=== PATIENT | male | born 1960 | race Caucasian/White ===

== ENCOUNTER 2023-01-28 13:20 | Inpatient (IN) | payer SELFPAY ==
[2023-01-28] VITALS (7 sets, daily range): BP systolic 100–132; BP diastolic 52–76; PULSE 62–70; RESP 15–20; TEMP 36.4–36.7; O2SAT 96–100
--- NOTE | 2023-01-28 13:55 | PC.NURSE ---
pt currently 97% on room air.
--- NOTE | 2023-01-28 13:57 | XR_ITS ---
WS: [id number] Portable AP upright chest, 01/28/2023 Clinical Data: fluid overload Comparison: Portable chest, 04/06/2014. Findings: No nodules, masses or effusions are seen. The heart is normal. The pulmonary vascularity is not increased. No pneumonia or pneumothorax is seen. Impression: Negative chest.
--- NOTE | 2023-01-28 13:59 | ECG_ITS ---
[facility] Test Date: 2023-01-28 Pat Name: Jordi Pérez Department: Room: Gender: Male Licensed Occupational Therapy Assistant: : 1960 Requested By: Julianna Dunn Order Number: [id number] Jairo MD: Garrett Prater M.D. Measurements Intervals [place] Rate: 65 P: 43 CT: 178 QRS: 18 QRSD: 105 T: -17 QT: 399 QTc: 418 Interpretive Statements SINUS RHYTHM LOW QRS VOLTAGE IN PRECORDIAL LEADS [QRS DEFLECTION < 1.0 mV IN CHEST LEADS] PROBABLE INFERIOR MYOCARDIAL INFARCTION , OF INDETERMINATE AGE [35 ms Q WAVE IN II/aVF] Compared to ECG 04/07/2014 06:38:26 Low QRS voltage now present Myocardial infarct finding still present Electronically Signed On 01-28-2023 19:36:55 CDT by Garrett Prater M.D. [id number]
--- NOTE | 2023-01-28 13:59 | W.ED.GENADLT ---
Documented by User: LUKE Vizcarra 01/28/23 16:48 HPI - General Adult General: Chief complaint: Extremity Problem,Nontraumatic Stated complaint: body swelling, URQ abd pain Time Seen by Provider: 01/28/23 13:34 Source: patient Mode of arrival: ambulatory Limitations: no limitations History of Present Illness: Patient is a 62-year-old male who presents to ED today along with family for concerns of swelling to his lower extremities and abdomen. Patient states he has had swelling to his legs for about a decade now but it has always been fairly controlled. He states he takes Lasix for this. Patient states over the past 4 to 5 months he has noticed significantly more swelling to his legs, swelling to his abdomen, shortness of breath, and weight gain. He states he has been told by his PCP that his liver and kidney labs are off . He has seen cardiology previously who was recommended echocardiogram however I do not see where this is ever been completed. Patient states he can hardly eat and gets profoundly short of breath with minimal exertion. PMH significant for CAD with RCA stent, HTN, and hyperlipidemia. Onset (ago): month(s) Location: abdomen, left, right and lower extremity Severity: severe Relieving factors: none Exacerbating factors: none Associated symptoms: Reports dyspnea and short of breath; Deny chest pain, headache(s), malaise, nausea, rash, palpitations, syncope or vomiting Treatments prior to arrival: none Review of Systems Const: Denies: fever(s), chills, body aches, fatigue or malaise Eyes: Denies: change in vision or blurry vision Card: Reports: edema, swelling of feet/ankles, dyspnea on exertion and orthopnea; Denies: chest pain, palpitations, irregular heart rhythm, lightheadedness or syncope Resp: Reports: dyspnea; Denies: productive cough, wheezing, pain on inspiration, hemoptysis or chest congestion GI: Denies: abdominal pain, nausea, vomiting, heartburn or diarrhea : Denies: flank pain, difficulty urinating, dysuria, urinary frequency, urinary urgency or urinary hesitancy Musc: Reports: extremity pain and extremity swelling; Denies: neck pain, back pain, joint pain, joint redness or joint warmth Skin/Breast: Denies: rash Neuro: Denies: headache(s), numbness in extremities, weakness in extremities, sensory changes or dizziness PFSH ED PFSH: Medical History Coronary artery disease HTN (hypertension) Hyperlipidemia, unspecified Family History Brother CAD (coronary artery disease) Hypertension Father Family history of premature coronary artery disease Hypertension Stroke Social History Smoking and tobacco/nicotine status: current every day tobacco/nicotine user Quit status (tobacco/nicotine): has tried quititng Physical Exam Const: COMMON NORMALS: no acute distress, patient oriented x3, no limitations and alert GENERAL APPEARANCE: cooperative ORIENTATION/CONSCIOUSNESS: Yes awake, Yes oriented to person, Yes oriented to place and Yes oriented to time HENMT: FACE & SINUS: normal facial exam Eye: GENERAL EYE: appearance normal, both eyes and all related structures Neck/C-Spine: GENERAL: Yes normal visual inspection Chest: COMMONS NORMALS: normal inspection of the chest and normal palpation of entire chest wall Resp: COMMON NORMALS: normal respiratory effort and clear to auscultation bilaterally AUSCULTATION: clear to auscultation bilaterally Cardio: COMMON NORMALS: regular rate and regular rhythm RATE: regular rate RHYTHM: regular rhythm GI: INSPECTION: Yes Anasarca and No Fluid wave present PALPATION: No Tenderness to palpation present (GI), No Guarding due to palpation present (GI) and No Rigid due to palpation PERCUSSION: no fluid wave : COMMON NORMALS: Yes no CVA tenderness BLADDER/KIDNEY EXAM: Yes no CVA tenderness Back/Pelvis: COMMON NORMALS: no CVA tenderness, thoracic and lumbar spine normal to inspection, no thoracic nor lumbar tenderness and thoraco-lumbar ROM normal Extremity: COMMON NORMALS: capillary refill normal NARRATIVE EXTREMITY EXAM: significant bilateral symmetrical pitting edema present Neuro: BETH COMA SCALE: document GCS findings [place] coma scale eye opening: Spontaneous Beth coma scale verbal response: Orientated [place] coma scale motor response: Obey commands Beth coma scale total score: 15 COMMON NORMALS: patient oriented x3, moves all extremities, no focal motor deficits and no sensory deficits noted SENSORIUM/ORIENTATION: Yes alert, Yes oriented to person, Yes oriented to place and Yes oriented to time Course Consultations: Consultation #1: Dr. Lay-accepts admission to med surg Vital Signs: Vital signs: Vital Signs Temperature 98.1 F 01/28/23 13:31 Pulse Rate 68 01/28/23 16:30 Respiratory Rate 16 01/28/23 16:30 Blood Pressure 132/76 01/28/23 16:30 Pulse Oximetry 98 01/28/23 16:30 Oxygen Delivery Me thod Room Air 01/28/23 16:30 MDM - General Adult Medical Decision Making Patient here for significant anasarca. He is on diuretics but this does not seem to be making much of a difference. He is reporting dyspnea with minimal exertion and trouble eating secondary to the swelling. Labs showing elevations to BUN/Cr. GFR of 34. He has been told his kidney labs are off but we have no comparisons here. He has a tbili of 2.6 and AST of 52. Alk phos and ALT are normal. Albumin is low. Elevated INR. CT scan confirms liver cirrhosis. BNP Surprisingly is only 236. His CXR appears normal. He needs an echo and diuresis. Spoke to Dr. Veras who agrees with need for hospitalization. I spoke to Dr. Lay who will admit patient. Lab Data 01/28/23 14:00 01/28/23 14:00 Laboratory Results WBC 9.64 10^3/uL (3.29-11.43) 01/28/23 14:00 RBC 3.38 10^6/uL (3.85-5.65) L 01/28/23 14:00 Hgb 12.40 g/dL (11.27-16.99) 01/28/23 14:00 Hct 35.8 % (37-53) L 01/28/23 14:00 MCV 105.9 fl (82-101) H 01/28/23 14:00 MCH 36.7 pg (27-33) H 01/28/23 14:00 MCHC 34.6 g/dL (30-55) 01/28/23 14:00 RDW 13.3 % (12.1-15.1) 01/28/23 14:00 Plt Count 169 10^3/cmm (157-399) 01/28/23 14:00 MPV 9.6 fL (7.4-10.4) 01/28/23 14:00 Neut % (Auto) 62.4 % 01/28/23 14:00 Lymph % (Auto) 23.3 % 01/28/23 14:00 [place] % (Auto) 10.9 % 01/28/23 14:00 Eos % (Auto) 2.4 % 01/28/23 14:00 Baso % (Auto) 0.7 % 01/28/23 14:00 Neut # (Auto) 6.01 10^3/uL (1.8-7.7) 01/28/23 14:00 Lymph # (Auto) 2.3 10^3/uL (0.8-4.8) 01/28/23 14:00 [place] # (Auto) 1.1 10^3/uL (0.2-0.9) H 01/28/23 14:00 Eos # (Auto) 0.2 10^3/uL (0.0-0.8) 01/28/23 14:00 Baso # (Auto) 0.1 10^3/uL (0.0-0.1) 01/28/23 14:00 Nucleated RBC % (auto) 0 % 01/28/23 14:00 Nucleated RBCs # 0.0 /100WBC 01/28/23 14:00 PT 18.60 SECONDS (12.1-14.9) H 01/28/23 14:00 INR 1.49 (0.8-1.2) H 01/28/23 14:00 Sodium 132 mmol/L (136-145) L 01/28/23 14:00 Potassium 4.9 mmol/L (3.5-5.1) 01/28/23 14:00 Chloride 95 mmol/L (98-107) L 01/28/23 14:00 Carbon Dioxide 28 mmol/L (22-29) 01/28/23 14:00 Anion Gap 13.9 (5-19) 01/28/23 14:00 BUN 31 mg/dL (8-23) H 01/28/23 14:00 Creatinine 2.0 mg/dL (0.7-1.2) H 01/28/23 14:00 GFR Calculation 34.3 mL/min (90-130) L 01/28/23 14:00 Glucose 135 mg/dL (65-115) H 01/28/23 14:00 Calculated Osmolality 283 mOsm/kg (285-295) L 01/28/23 14:00 Calcium 8.9 mg/dL (8.5-10.5) 01/28/23 14:00 Total Bilirubin 2.6 mg/dL (0.15-1.2) H 01/28/23 14:00 AST 52 U/L (0-40) H 01/28/23 14:00 ALT 28 U/L (0-41) 01/28/23 14:00 Alkaline Phosphatase 108 U/L (40-130) 01/28/23 14:00 Troponin T Baseline 29 ng/L (0-15) H 01/28/23 14:00 Troponin T 120 Minute 27.58 ng/L (0-15) H 01/28/23 15:55 Delta Troponin T -1.42 ABS# (0-10) L 01/28/23 15:55 NT-Pro-B Natriuret Pep 236 pg/mL (0-125) H 01/28/23 14:00 Total Protein 6.3 g/dL (6.6-8.7) L 01/28/23 14:00 Albumin 2.6 g/dL (3.5-5.2) L 01/28/23 14:00 Globulin 3.7 g/dL (1.3-4.6) 01/28/23 14:00 All radiology interpretation(s) finalized by discharge Discharge Plan Discharge Patient Disposition: Admitted As Inpatient Clinical Impression: Anasarca Cirrhosis of liver Qualifiers: Hepatic cirrhosis type: unspecified hepatic cirrhosis Ascites presence: with ascites Qualified Code(s): K74.60 - Unspecified cirrhosis of liver Condition: Stable Coding Level of Care Code ED Transplant Case Manager for Chg Fwd Documented by User: Ray Veras DO 01/28/23 17:20 HPI - General Adult General: Chief complaint: Extremity Problem,Nontraumatic Stated complaint: body swelling, URQ abd pain Time Seen by Provider: 01/28/23 13:34 PFSH ED PFS: Medical History Coronary artery disease HTN (hypertension) Hyperlipidemia, unspecified Family History Brother CAD (coronary artery disease) Hypertension Father Family history of premature coronary artery disease Hypertension Stroke Social History Smoking and tobacco/nicotine status: current every day tobacco/nicotine user Quit status (tobacco/nicotine): has tried quititng Physical Exam Neuro: BETH COMA SCALE: document GCS findings [place] coma scale total score: 15 Course Vital Signs: Vital signs: Vital Signs Temperature 98.1 F 01/28/23 13:31 Pulse Rate 68 01/28/23 16:30 Respiratory Rate 16 01/28/23 16:30 Blood Pressure 132/76 01/28/23 16:30 Pulse Oximetry 98 01/28/23 16:30 Oxygen Delivery Me thod Room Air 01/28/23 16:30 MDM - General Adult Medical Decision Making Patient here for significant anasarca. He is on diuretics but this does not seem to be making much of a difference. He is reporting dyspnea with minimal exertion and trouble eating secondary to the swelling. Labs showing elevations to BUN/Cr. GFR of 34. He has been told his kidney labs are off but we have no comparisons here. He has a tbili of 2.6 and AST of 52. Alk phos and ALT are normal. Albumin is low. Elevated INR. CT scan confirms liver cirrhosis. BNP Surprisingly is only 236. His CXR appears normal. He needs an echo and diuresis. Spoke to Dr. Veras who agrees with need for hospitalization. I spoke to Dr. Lay who will admit patient. Chart reviewed and patient discussed with midlevel. Agree with assessment and plan. Lab Data 01/28/23 14:00 01/28/23 14:00 Laboratory Results WBC 9.64 10^3/uL (3.29-11.43) 01/28/23 14:00 RBC 3.38 10^6/uL (3.85-5.65) L 01/28/23 14:00 Hgb 12.40 g/dL (11.27-16.99) 01/28/23 14:00 Hct 35.8 % (37-53) L 01/28/23 14:00 MCV 105.9 fl (82-101) H 01/28/23 14:00 MCH 36.7 pg (27-33) H 01/28/23 14:00 MCHC 34.6 g/dL (30-55) 01/28/23 14:00 RDW 13.3 % (12.1-15.1) 01/28/23 14:00 Plt Count 169 10^3/cmm (157-399) 01/28/23 14:00 MPV 9.6 fL (7.4-10.4) 01/28/23 14:00 Neut % (Auto) 62.4 % 01/28/23 14:00 Lymph % (Auto) 23.3 % 01/28/23 14:00 [place] % (Auto) 10.9 % 01/28/23 14:00 Eos % (Auto) 2.4 % 01/28/23 14:00 Baso % (Auto) 0.7 % 01/28/23 14:00 Neut # (Auto) 6.01 10^3/uL (1.8-7.7) 01/28/23 14:00 Lymph # (Auto) 2.3 10^3/uL (0.8-4.8) 01/28/23 14:00 [place] # (Auto) 1.1 10^3/uL (0.2-0.9) H 01/28/23 14:00 Eos # (Auto) 0.2 10^3/uL (0.0-0.8) 01/28/23 14:00 Baso # (Auto) 0.1 10^3/uL (0.0-0.1) 01/28/23 14:00 Nucleated RBC % (auto) 0 % 01/28/23 14:00 Nucleated RBCs # 0.0 /100WBC 01/28/23 14:00 PT 18.60 SECONDS (12.1-14.9) H 01/28/23 14:00 INR 1.49 (0.8-1.2) H 01/28/23 14:00 Sodium 132 mmol/L (136-145) L 01/28/23 14:00 Potassium 4.9 mmol/L (3.5-5.1) 01/28/23 14:00 Chloride 95 mmol/L (98-107) L 01/28/23 14:00 Carbon Dioxide 28 mmol/L (22-29) 01/28/23 14:00 Anion Gap 13.9 (5-19) 01/28/23 14:00 BUN 31 mg/dL (8-23) H 01/28/23 14:00 Creatinine 2.0 mg/dL (0.7-1.2) H 01/28/23 14:00 GFR Calculation 34.3 mL/min (90-130) L 01/28/23 14:00 Glucose 135 mg/dL (65-115) H 01/28/23 14:00 Calculated Osmolality 283 mOsm/kg (285-295) L 01/28/23 14:00 Calcium 8.9 mg/dL (8.5-10.5) 01/28/23 14:00 Total Bilirubin 2.6 mg/dL (0.15-1.2) H 01/28/23 14:00 AST 52 U/L (0-40) H 01/28/23 14:00 ALT 28 U/L (0-41) 01/28/23 14:00 Alkaline Phosphatase 108 U/L (40-130) 01/28/23 14:00 Troponin T Baseline 29 ng/L (0-15) H 01/28/23 14:00 Troponin T 120 Minute 27.58 ng/L (0-15) H 01/28/23 15:55 Delta Troponin T -1.42 ABS# (0-10) L 01/28/23 15:55 NT-Pro-B Natriuret Pep 236 pg/mL (0-125) H 01/28/23 14:00 Total Protein 6.3 g/dL (6.6-8.7) L 01/28/23 14:00 Albumin 2.6 g/dL (3.5-5.2) L 01/28/23 14:00 Globulin 3.7 g/dL (1.3-4.6) 01/28/23 14:00 Discharge Plan Discharge Patient Disposition: Admitted As Inpatient Clinical Impression: Anasarca Cirrhosis of liver Qualifiers: Hepatic cirrhosis type: unspecified hepatic cirrhosis Ascites presence: with ascites Qualified Code(s): K74.60 - Unspecified cirrhosis of liver Condition: Stable Coding Level of Care Code ED Transplant Case Manager for Glory Ogden
[2023-01-28 14:12] LABS: Basophils # 0.1 10^3/uL (0.0-0.1); Basophils % 0.7 %; Eosinophils # 0.2 10^3/uL (0.0-0.8); Eosinophils % 2.4 %; Hematocrit 35.8 % (37-53); Lymphocytes # 2.3 10^3/uL (0.8-4.8); Lymphocytes % 23.3 %; Mean Corpuscular HGB Conc 34.6 g/dL (30-55); Mean Corpuscular Hemoglobin 36.7 pg (27-33); Mean Corpuscular Volume 105.9 fl (82-101); Mean Platelet Volume 9.6 fL (7.4-10.4); Monocytes # 1.1 10^3/uL (0.2-0.9); Monocytes % 10.9 %; Neutrophils # 6.01 10^3/uL (1.8-7.7); Neutrophils % 62.4 %; Nucleated Red Blood Cells % 0 %; Platelet Count 169 10^3/cmm (157-399); Red Blood Count 3.38 10^6/uL (3.85-5.65); Red Cell Distribution Width 13.3 % (12.1-15.1); White Blood Count 9.64 10^3/uL (3.29-11.43)
[2023-01-28 14:35] LABS: Troponin(5th) Baseline 29 ng/L (0-15)
[2023-01-28 14:45] LABS: Alanine Aminotransferase 28 U/L (0-41); Albumin Level 2.6 g/dL (3.5-5.2); Alkaline Phosphatase 108 U/L (40-130); Anion Gap 13.9 (5-19); Aspartate Amino Transferase 52 U/L (0-40); Blood Urea Nitrogen 31 mg/dL (8-23); Calcium 8.9 mg/dL (8.5-10.5); Carbon Dioxide 28 mmol/L (22-29); Chloride 95 mmol/L (98-107); Globulin 3.7 g/dL (1.3-4.6); Glomerular Filtration Rate 34.3 mL/min (90-130); Glucose 135 mg/dL (65-115); NT Pro B Type Natriuretic Pept 236 pg/mL (0-125); Osmolality Calculated 283 mOsm/kg (285-295); Potassium 4.9 mmol/L (3.5-5.1); Sodium 132 mmol/L (136-145); Total Bilirubin 2.6 mg/dL (0.15-1.2); Total Protein 6.3 g/dL (6.6-8.7)
--- NOTE | 2023-01-28 14:57 | CT_ITS ---
WS: [id number] CT ABDOMEN PELVIS TECHNIQUE: Noncontrast CT of the abdomen and pelvis with coronal and sagittal reformatted images. CLINICAL INFORMATION: anasarca COMPARISON: None. DLP: 1233.[address] scans at [facility] use at least one of these dose optimization techniques: automated e xposure control; mA and/or kV adjustment per patient size (includes targeted exams where dose is matc hed to clinical indication); or iterative reconstruction. FINDINGS: Lung bases are well aerated. Diffuse body wall anasarca. Diffuse mesenteric edema. Mild abdominal and pelvic ascites. Cirrhotic configuration to the liver. Cholecystectomy clips. Small esophageal hiatal hernia. Fatty atrophy of the pancreas. Adrenal glands are normal. No hydronephrosis in either kidney. Urine d istended bladder. Small bladder cystocele. No evidence of high-grade small or large bowel obstruction . Normal caliber abdominal aorta. Aortic calcification. IMPRESSION: 1. Diffuse body wall anasarca with extensive mesenteric edema. 2. Cirrhotic liver with mild abdominal and pelvic ascites. 3. Small esophageal hiatal hernia. 4. No hydronephrosis in either kidney. 5. No other acute findings.
[2023-01-28 15:23] LABS: INR 1.49 (0.8-1.2)
--- NOTE | 2023-01-28 15:58 | ECG_ITS ---
[facility] Test Date: 2023-01-28 Pat Name: Jordi Pérez Department: Room: Gender: Male Access Control Specialist: : 1960 Requested By: Julianna Dunn Order Number: [id number] Jairo MD: Garrett Prater M.D. Measurements Intervals [place] Rate: 62 P: 51 IA: 182 QRS: 27 QRSD: 108 T: -7 QT: 418 QTc: 425 Interpretive Statements SINUS RHYTHM LOW QRS VOLTAGE IN PRECORDIAL LEADS [QRS DEFLECTION < 1.0 mV IN CHEST LEADS] POSSIBLE INFERIOR MYOCARDIAL INFARCTION , PROBABLY OLD [30 ms Q WAVE IN II/aVF] Compared to ECG 01/28/2023 13:59:58 No significant changes Electronically Signed On 01-28-2023 19:45:34 CDT by Garrett Prater M.D. [id number]
[2023-01-28] MEDS: FUROsemide 10 mg/mL SDV 10mL 60 MG IVP (16:31)
[2023-01-28 16:40] LABS: Troponin 5 2HR 27.58 ng/L (0-15); Troponin 5 2HR Delta -1.42 ABS# (0-10)
--- NOTE | 2023-01-28 17:36 | USCV_ITS ---
Jordi Pérez Age: 62 Gender: M : 1960 Exam Date: 01/28/2023 19:28 Ordering Phys: Kristal Lay MD Technologist: ABHISHEK Exam Location: [facility] [place] Indication: chronic BLE edema x 10 yrs on prophylactic Lasix, SOB, hx liver failure, renal failure. c/p RCA stent BP: 132 / 76 HR: 63 Rhythm: Sinus Technical Quality: Adequate with [employer] MEASUREMENTS (Male / Female) Normal Values 2D ECHO LV Diastolic Diameter PLAX 5.9 cm 4.2 - 5.9 / 3.9 - 5.3 cm LV Systolic Diameter PLAX 3.5 cm IVS Diastolic Thickness 1.1 cm 0.6 - 1.0 / 0.6 - 0.9 cm IVS Systolic Thickness 2.1 cm LVPW Diastolic Thickness 1.4 cm 0.6 - 1.0 / 0.6 - 0.9 cm LVPW Systolic Thickness 1.6 cm LVOT Diameter 2.5 cm LV Ejection Fraction 2D Teich 70.0 % LV Ejection Fraction MOD 2C 60.1 % LV Ejection Fraction 2C AL 61.1 % LA Diameter 5.2 cm LA Width 4.0 cm LA Height 6.2 cm RA Width 3.3 cm RA Height 4.6 cm Aorta at Sinotubular Diameter 3.5 cm IVC Diameter 1.4 cm M-MODE Aortic Annulus Diameter 3.3 cm LA Ao Ratio MM 1.6 MV E Point Septal Separation 0.7 cm DOPPLER AV Peak Velocity 153.0 cm/s LVOT Peak Velocity 97.0 cm/s AV Area Cont Eq vti 3.2 cm squared AV Area Cont Eq pk 3.2 cm squared MV Peak Velocity 103.0 cm/s MV Area PHT 2.5 cm squared Mitral E to A Ratio 0.9 MV E' Velocity 72.0 cm/s TV Peak E Velocity 39.0 cm/s PV Peak Velocity 144.0 cm/s RV Acceleration Time 0.1 s RV Ejection Time 0.4 s RV AcT/ET 0.3 FINDINGS Left Ventricle Normal left ventricular size and systolic function, EF 67 %. No regional wall motion abnormalities. Right Ventricle Possibly normal LV size ejection fraction Right Atrium Normal right atrial size. Left Atrium Normal left atrial size. Mitral Valve Thickened mitral valve. Aortic Valve No gross abnormalities noted Tricuspid Valve No gross abnormalities no Pulmonic Valve No gross abnormalities noted Pericardium Normal pericardium without effusion. Aorta Normal aortic annulus size. IVC Normal inferior vena cava. CONCLUSIONS Normal left ventricular size and systolic function, EF 67 %. No regional wall motion abnormalities. Thickened mitral valve. Normal cardiac chamber sizes No gross valvular abnormalities. There is no pericardial effusion. Compared to the study from 04/07/2014, there may not be a significant change Dr Garrett Prater MD FACC (Electronically Signed) Final Date: 29 January 2023 08:53 S
--- NOTE | 2023-01-28 18:06 | PM.HP ---
Providers/Chief Complaint Admitting Physician: Kristal Lay MD Primary Care Provider: Fausto Poe MD Chief Complaint: body swelling, URQ abd pain History of Present Illness Jordi Pérez is a 62 year old male with a past medical history of CAD, presumed heart failure who has been having increasing generalized anasarca over the last 3 to 4 months. Patient states that he started to develop lower extremity edema at least 2 to 3 years ago, used to follow with cardiology who put him on diuretics furosemide 40 mg twice daily and metolazone. He has not seen cardiology in about a year now. He has been following with his primary care provider. He states that while the diuretics give him an initial improvement over the first 2 months, thereafter they stopped working and he has had a progressively increasing edema more intensified over the last 3 to 4 months. He is unable to walk, states that his appetite is essentially gone as a result of his edema. Denies any chest pain. On examination he has massive bilateral 3+ pitting edema. Denies any recent changes in his medications. CT of the abdomen pelvis was performed today which was negative for acute intracranial pathology but did show liver cirrhosis. Unclear how long patient has had liver cirrhosis. Denies any past history of hepatitis. States that years ago he was told by a physician that he has fatty liver but does not recall being given the diagnosis of cirrhosis. There is a low ultrasound of the liver from 2012 which shows echogenicity of the liver was diffusely increased compatible with fatty infiltration. Gallbladder was surgically absent. Both kidneys appeared to be normal echotexture. He does not drink any alcohol. No history of IV drug use. He is a current smoker. 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 His job required him to be standing throughout the day. He had a venous study years ago in October 2011 with the indication is listed as swelling which was negative for any DVT. He had a Carvajal's cyst in the left popliteal fossa. Review of Systems General: Reports: 10 or more systems reviewed and unremarkable except in HPI and below Const: Denies: fever(s), chills or body aches Eyes: Denies: change in vision, blurry vision or photophobia ENMT: Reports: hoarseness; Denies: throat pain, enlarged tonsils, odynophagia or nasal congestion Card: Denies: chest pain, palpitations, irregular heart rhythm, edema, swelling of feet/ankles, lightheadedness, pre-syncope, dyspnea on exertion or orthopnea Resp: Denies: dyspnea, productive cough, non-productive cough, wheezing, stridor, pain on inspiration, change in phlegm color, hemoptysis or chest congestion GI: Denies: abdominal pain, nausea, vomiting, hematemesis, coffee ground emesis, dysphagia, heartburn, diarrhea, constipation, GI cramping, change in stool character, hematochezia or melena : Denies: flank pain, dysuria, urinary frequency, urinary urgency, urinary hesitancy or hematuria Musc: Denies: neck pain, back pain, extremity pain, joint swelling, joint warmth or deformity Neuro: Denies: headache(s), numbness in extremities, weakness in extremities, sensory changes, difficulty walking, frequent falls, dizziness, vertigo, behavioral changes, Slurred speech present or seizure-like activity Psych: Denies: anxiety, depression, suicidal ideation or homicidal ideation Endo: Denies: polyuria, polydipsia, tired all the time, cold intolerance or hot flashes Kirk/Lymph: Denies: easy bruising or easy bleeding Medications/Allergies Home Medications Medication Instructions Recorded Confirmed Last Taken Type lisinopril 20 1 tab PO BID #60 tabs 07/02/21 01/28/23 01/28/23 Rx mg-hydrochlorothiazide 12.5 mg tablet furosemide 40 mg tablet (Lasix) 40 mg PO BID 12/09/21 01/28/23 01/28/23 History aspirin 81 mg tablet,delayed 81 mg PO DAILY 01/28/23 01/28/23 01/28/23 History release metolazone 2.5 mg tablet 2.5 mg PO DAILY 01/28/23 01/28/23 01/28/23 History metoprolol tartrate 25 mg tablet 25 mg PO BID 01/28/23 01/28/23 01/28/23 History multivit with minerals-folic 1 tab PO DAILY 01/28/23 01/28/23 01/28/23 History acid-lycopene 0.4 mg-600 mcg tablet potassium chloride 10 mEq 10 meq PO BID 01/28/23 01/28/23 01/28/23 History tablet,extended release(part/cryst) (Klor-Con M) simvastatin 40 mg tablet 40 mg PO QPM 01/28/23 01/28/23 01/27/23 History Allergies Allergy/AdvReac Type Severity Reaction Status Date / Time No Known Allergies Allergy Verified 12/09/21 15:13 PFSH Acute PFSH: Medical History (Updated 01/29/23 @ 18:15 by Kristal Lay MD) Coronary artery disease FH: cholecystectomy HTN (hypertension) Hyperlipidemia, unspecified Male erectile dysfunction, unspecified Tobacco abuse Surgical History (Updated 01/29/23 @ 18:15 by Kristal Lay MD) Stented coronary artery Family History Brother CAD (coronary artery disease) Hypertension Father Family history of premature coronary artery disease Hypertension Stroke Social History Smoking and tobacco/nicotine status: current every day tobacco/nicotine user Quit status (tobacco/nicotine): has tried quititng Vitals/I&O/Wt Last Vital Signs Temp 97.5 F L 01/29/23 11:45 Pulse 89 01/29/23 16:00 Resp 18 01/29/23 16:00 BP 101/56 01/29/23 16:00 Pulse Ox 96 01/29/23 16:00 O2 Del Method Room Air 01/29/23 16:00 01/29/23 01/29/23 01/29/23 06:59 14:59 22:59 Intake Total 730 / 730 Output Total 700 / 1625 350 / 350 Balance -700 / -1625 380 / 380 Weight last 48 hrs Weight 133.356 kg Physical Exam Narrative: General: No acute distress, AO x3 HEENT: PERRLA, pupils bilaterally equal and reactive, pallors not present Chest: Normal vesicular breath sounds, no added sounds, equal good air entry bilaterally CVS: S1-S2 regular, no murmurs, no tachycardia, no gallops, no rubs Abdomen: Soft, nontender, no organomegaly, bowel sounds present Neuro: No focal deficits, no facial deformity, AO x3, power 5/5 in all limbs EXT: B/L pitting edema Data 01/29/23 04:50 01/29/23 04:50 A&P Assessment and plan (1) Cirrhosis of liver: Noted to have cirrhosis of the liver on CT abdomen today. This appears to be new for the patient. Comparative ultrasound only available from back in 2011 at which time patient was noted to have fatty liver. Possibly REGAN progressing to cirrhosis is a possibility. Check hepatitis serology. May have portal hypertension, unable to see portal vein diameter at this time. Check INR. Qualifiers: Ascites presence: with ascites Hepatic cirrhosis type: unspecified hepatic cirrhosis Qualified Code(s): K74.60 - Unspecified cirrhosis of liver; R18.8 - Other ascites (2) Anasarca: Etiology unclear at this time Differentials include cirrhosis versus kidney disease versus heart failure. It appears patient has a prior diagnosis of heart failure though I do not see an echocardiogram on file. Will obtain echocardiogram today to assess for any systolic or diastolic dysfunction and also valvular status. Lasix 60 mg IV given in the emergency room, continue with Lasix 40 mg IV every 12 hours Strict NAOMY monitoring, monitor renal function with diuresis. Thus far appears to have heart failure of oral diuretics as an outpatient. May have poor absorption of oral diuretics with mesenteric edema. Check TSH Alternate possibility for excessive lower extremity edema includes lymphedema versus venous insufficiency. Obtain lower extremity venous Doppler. (3) ZAHEER (acute kidney injury): ZAHEER , creatinine at 2.0. Previously known baseline in the computer is between 1.3-1.8 from 2018. No interim labs available. Check urine lites, UA, urine eosinophils Unclear etiology at this point, may be prerenal related to diuretic use. Patient states that on several occasions he has doubled up on his diuretics in an attempt to get rid of the edema, however it has not really helped significantly. Plan DVT prophylaxis: Lovenox Full code Attestations Medical Necessity Statement*: Greater than 2 midnight admission is anticipated for above defined care Coding Level of Care Code Acute Code for Chg Fwd High MDM includes number and complexity of problems actively addressed during encounter, amount and/or complexity of data reviewed/ordered and described risk of complication, morbidity or mortality of management as documented Diagnoses Cirrhosis of liver K74.60; R18.8 Ascites presence: with ascites Hepatic cirrhosis type: unspecified hepatic cirrhosis Anasarca R60.1 ZAHEER (acute kidney injury) N17.9
[2023-01-28 18:33] LABS: Thyroid Stimulating Hormone 3.95 uIU/mL (0.27-4.20)
[2023-01-28] MEDS: enoxaparin 40 mg/0.4 mL Syringe SUBCUT (18:42)
[2023-01-28 19:28] LABS: Add Urine Microscopic? NO; Charge for UA Resulting for Rev
[2023-01-28 19:32] LABS: Bilirubin Urine Neg (Negative); Blood Urine Neg (Negative); Glucose Urine UA Norm (Normal); Ketones Urine Negative (Negative); Leukocyte Esterase Urine Negative (Negative); Nitrate Urine Negative (Negative); Protein Urine Neg (Negative); Specific Gravity, Urine 1.015 (1.005-1.030); Urine Appearance Clear (CLEAR); Urine Color Yellow (Yellow); Urobilinogen Urine Norm (Negative); pH Urine 5 (5-7)
--- NOTE | 2023-01-28 19:58 | ECG_ITS ---
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 Measurements Intervals [place] Rate: 65 P: 44 CO: 179 QRS: 16 QRSD: 102 T: 8 QT: 423 QTc: 441 Interpretive Statements SINUS RHYTHM POSSIBLE INFERIOR MYOCARDIAL INFARCTION , PROBABLY OLD [30 ms Q WAVE IN II/aVF] INTERPRETATION BASED ON A DEFAULT AGE OF 40 YEARS Compared to ECG 01/28/2023 16:01:55 No significant changes Electronically Signed On 01-30-2023 1:14:41 CDT by Garrett Prater M.D. [id number]
[2023-01-28 20:53] LABS: Troponin 5 6HR 26.01 ng/L (0-15)
[2023-01-28 20:54] LABS: Troponin 5 6HR Delta -2.99 ng/L (0-12)
[2023-01-29] VITALS (7 sets, daily range): BP systolic 91–106; BP diastolic 45–64; PULSE 73–89; RESP 16–18; TEMP 36.4–36.9; O2SAT 90–98
[2023-01-29] MEDS: FUROsemide 10 mg/mL SDV 4mL 40 MG IVP (04:58)
[2023-01-29 05:14] LABS: Basophils # 0.1 10^3/uL (0.0-0.1); Basophils % 0.8 %; Eosinophils # 0.4 10^3/uL (0.0-0.8); Eosinophils % 6.2 %; Hematocrit 30.2 % (37-53); Lymphocytes # 1.9 10^3/uL (0.8-4.8); Lymphocytes % 29.2 %; Mean Corpuscular HGB Conc 34.4 g/dL (30-55); Mean Corpuscular Hemoglobin 36.1 pg (27-33); Mean Corpuscular Volume 104.9 fl (82-101); Mean Platelet Volume 9.7 fL (7.4-10.4); Monocytes # 0.7 10^3/uL (0.2-0.9); Monocytes % 11.1 %; Neutrophils # 3.49 10^3/uL (1.8-7.7); Neutrophils % 52.4 %; Nucleated Red Blood Cells % 0 %; Platelet Count 141 10^3/cmm (157-399); Red Blood Count 2.88 10^6/uL (3.85-5.65); Red Cell Distribution Width 13.2 % (12.1-15.1); White Blood Count 6.65 10^3/uL (3.29-11.43)
[2023-01-29 05:38] LABS: Alanine Aminotransferase 24 U/L (0-41); Alkaline Phosphatase 95 U/L (40-130); Anion Gap 11.5 (5-19); Aspartate Amino Transferase 42 U/L (0-40); Blood Urea Nitrogen 32 mg/dL (8-23); Calcium 8.6 mg/dL (8.5-10.5); Carbon Dioxide 28 mmol/L (22-29); Chloride 99 mmol/L (98-107); Globulin 3.2 g/dL (1.3-4.6); Glomerular Filtration Rate 30.7 mL/min (90-130); Glucose 108 mg/dL (65-115); Osmolality Calculated 285 mOsm/kg (285-295); Potassium 4.5 mmol/L (3.5-5.1); Sodium 134 mmol/L (136-145); Total Protein 5.2 g/dL (6.6-8.7)
[2023-01-29] MEDS: perflutren protein-a microsphr 0.22 mg/mL SDV 3 mL IV (07:13)
--- NOTE | 2023-01-29 09:55 | USR_ITS ---
PROCEDURE INFORMATION: Exam: US Duplex Lower Extremity Veins, Bilateral Exam date and time: 01/29/2023 1:45 PM Age: 62 years old Clinical indication: Pain; Leg, lower; Bilateral; Additional info: Eval for dvt, TECHNIQUE: Imaging protocol: Real-time duplex ultrasound of the bilateral extremities with 2-D rizvi scale, color Doppler flow and spectral waveform analysis including responses to compression and other maneuvers (when performed) with image documentation. Complete exam focused on the lower extremity veins. COMPARISON: CT abdomen pelvis wo con [id number] 01/28/2023 3:11 PM FINDINGS: Right deep veins: Unremarkable. The common femoral, femoral, proximal profunda femoral and popliteal veins are patent without thrombus. Normal Doppler waveforms. Normal compressibility and/or augmentation response. Left deep veins: Unremarkable. The common femoral, femoral, proximal profunda femoral and popliteal veins are patent without thrombus. Normal Doppler waveforms. Normal compressibility and/or augmentation response. Superficial veins: Bilateral saphenofemoral junctions are patent without thrombus. Soft tissues: Subcutaneous edema in the lower legs bilaterally. US/CV venous duplex [facility] [id number] IMPRESSION: No evidence of deep vein thrombosis.
--- NOTE | 2023-01-29 10:24 | PC.CHAP ---
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 [] Patient/Family/Request visit [] Outpatient visit [] Follow-up visit [] Physician referral [] Code/Alert [x] Routine visit [] Staff referral [] Actively dying [] Patient sleeping [] Family support [] [] Out of room [] Palliative care [] [x] Receiving care in room [] Pre-surgical visit [] Trauma [] Long length of stay [] ICU visit [] Other: Relational/Emotional Strength [x] Patient feels connected with others/family/visitors/staff [] Distress [] Loneliness/isolation [] Abandonment Spirituality of Patient [x] Person of Delores [] Attends Latter Day of their Delores [x] Believes in Prayer [] Reads Bible or Taoism materials [] There are Spiritual issues to be addressed Clinician Oncology Interventions [x] Prayer [x] Active listening [x] Non-anxious presence [x] Spiritual/emotional support [] Crisis/trauma care [x] Spiritual counseling [] Bereavement support [] Provided bereavement packet [] Provided Bible/devotional materials [] Provided toy/stuffed animal, coloring book to patient or family member [] Provided Communion [] Anointing/[place] [] Salvation [x] Completed spiritual assessment [] Other: Impact on Illness or Injury [] Angry [] Fearful [] Anxious [] Often cries [] Exhaustion [] Unable to work [] Unable to attend sikh [] Unable to walk/stand [] Unable to read [] Unable to drive [] Unable to eat/drink [] Unable to sleep [] Unable to be with family [] Patient intubated [] Other: Summary health problems lever and swelling in orgains negative waiting on doctor for results +1 not suer when he can go home Time spent with patient 10 mins
[2023-01-29 10:44] LABS: HIV 1 & 2 Antibody Non-Reactive (Non-Reactiv); HIV 1 & 2 Antigen Non-Reactive (Non-Reactiv)
[2023-01-29 10:51] LABS: Hepatitis A Antibody IgM Non-Reactive (Nonreactive); Hepatitis B Core AB, Total Non-Reactive (Nonreactive); Hepatitis B Surface AB 3.5 (11.5-1000); Hepatitis B Surface Antigen Non-Reactive (Nonreactive); Hepatitis C Virus Antibody Non-Reactive (Nonreactive)
[2023-01-29] MEDS: pantoprazole DR 40 mg Tablet PO (11:35)
[2023-01-29] MEDS: albumin 12.5 GM/250 ML VIAL IV ×2 (11:58→17:56)
[2023-01-29] MEDS: octreotide 500 MCG in sodium chloride 0.9% (100 ml) 100 ML 10.1 MCG IV (18:02)
[2023-01-29] MEDS: enoxaparin 40 mg/0.4 mL Syringe SUBCUT (18:08)
--- NOTE | 2023-01-29 18:19 | PM.PN ---
Subjective Subjective: No significant improvement in edema today. Blood pressure tending towards hypotension between 91-1 05 systolic. Urine output 1.9 L over last 24 hours. Creatinine worsening at 2.2 today. Medications: Reviewed: Yes Vitals/I&O/Wt Last Vital Signs Temp 97.5 F L 01/29/23 11:45 Pulse 89 01/29/23 16:00 Resp 18 01/29/23 16:00 BP 101/56 01/29/23 16:00 Pulse Ox 96 01/29/23 16:00 O2 Del Method Room Air 01/29/23 16:00 01/29/23 01/29/23 01/29/23 06:59 14:59 22:59 Intake Total 730 / 730 Output Total 700 / 1625 350 / 350 Balance -700 / -1625 380 / 380 Weight last 48 hrs Weight 133.356 kg Physical Exam Narrative: General: No acute distress, AO x3 HEENT: PERRLA, pupils bilaterally equal and reactive, pallors not present Chest: Normal vesicular breath sounds, no added sounds, equal good air entry bilaterally CVS: S1-S2 regular, no murmurs, no tachycardia, no gallops, no rubs Abdomen: Soft, nontender, no organomegaly, bowel sounds present Neuro: No focal deficits, no facial deformity, AO x3, power 5/5 in all limbs EXT: B/L pitting edema Data 01/29/23 04:50 01/29/23 04:50 Other data: Date of Service: 01/28/23 Procedure(s): CV. echo wo/w contrast [id number] ?CONCLUSIONS ?Normal left ventricular size and systolic function, EF 67 %. No ?regional wall motion abnormalities. ?Thickened mitral valve. ?Normal cardiac chamber sizes ?No gross valvular abnormalities. ?There is no pericardial effusion. ?Compared to the study from 04/07/2014, there may not be a ?significant change A&P Assessment and plan (1) Cirrhosis of liver: Noted to have cirrhosis of the liver on CT abdomen. This appears to be new for the patient. Comparative ultrasound only available from back in 2011 at which time patient was noted to have fatty liver. Possibly REGAN progressing to cirrhosis . negative hepatitis serology. elevated INR , low albumin concern for heptorenal syndrome as a cause of ZAHEER Qualifiers: Ascites presence: with ascites Hepatic cirrhosis type: unspecified hepatic cirrhosis Qualified Code(s): K74.60 - Unspecified cirrhosis of liver; R18.8 - Other ascites (2) Hepatorenal syndrome: worsening kidney function no proteinuria or HTN noted to have hypotension and hypoalbuminemia, likely related to cirrhosis and third spacing , suspect hepatic etiology over primary renal pathology Start treatment for HRS and monitor for response Albumin, midodrine 5 mg TID and octreotide infusion to start today Hold diuresis for now given worsening cr (3) Anasarca: Etiology unclear at this time Differentials include cirrhosis versus kidney disease Less likely heart failure given normal echo, BNP only 200 Alternate possibility for excessive lower extremity edema includes lymphedema versus venous insufficiency. Obtain lower extremity venous Doppler, pending venous insufficiency study unable to completed as inpatient paracentesis for symptomatic relief and to estimate SAAG (4) ZAHEER (acute kidney injury): ZAHEER , creatinine at 2.0. Previously known baseline in the computer is between 1.3-1.8 from 2018. No interim labs available. suspect HRS Plan DVT prophylaxis: Lovenox Full code Attestations Medical Necessity Statement*: start multiple medications for HRS as above, needs close monitoring Coding Level of Care Code Acute Code for Chg Fwd High MDM includes number and complexity of problems actively addressed during encounter, amount and/or complexity of data reviewed/ordered and described risk of complication, morbidity or mortality of management as documented Diagnoses Cirrhosis of liver K74.60; R18.8 Ascites presence: with ascites Hepatic cirrhosis type: unspecified hepatic cirrhosis Hepatorenal syndrome K76.7 Anasarca R60.1 ZAHEER (acute kidney injury) N17.9
[2023-01-29] MEDS: midodrine 5 mg TABLET PO ×2 (18:55→21:57)
[2023-01-29] MEDS: albumin 25 G/100 ML VIAL IV (20:29)
[2023-01-29] MEDS: ondansetron 2 mg/ML SDV 2 mL 4 MG IVP (22:11)
[2023-01-30] VITALS (11 sets, daily range): BP systolic 90–127; BP diastolic 50–63; PULSE 58–75; RESP 15–18; TEMP 36.6–36.9; O2SAT 90–94
[2023-01-30] MEDS: albumin 25 G/100 ML BAG 60 G IV ×3 (04:18→20:20)
[2023-01-30] MEDS: octreotide 500 MCG in sodium chloride 0.9% (100 ml) 100 ML 10.1 MCG IV ×2 (06:06→17:42)
[2023-01-30] MEDS: midodrine 5 mg TABLET PO (08:43)
[2023-01-30] MEDS: pantoprazole DR 40 mg Tablet PO (08:43)
--- NOTE | 2023-01-30 10:18 | PC.NURSE ---
Patient tolerated paracentesis well. Vitals remained stable throughout procedure.
[2023-01-30 11:12] LABS: Apprearance, Body Fluid CLEAR; Color, Body Fluid YELLOW
[2023-01-30 11:20] LABS: Cyto Order Verification Order Verified; Fluid Laterality PERITONEAL FLUID
[2023-01-30 11:21] LABS: Body Fluid Polynuclear #Cells 0.064; Body Fluid WBC 303 /uL; Monocytes # Body Fluid 0.239; RBC, Body Fluid 0 10^3/uL
[2023-01-30 11:36] LABS: PATH Referral YES
[2023-01-30 11:39] LABS: Albumin Body Fluid 0.6 g/dL; Amylase Body Fluid 8 U/L; Cholesterol Body Fluid 15 mg/dL (0-200); Fluid Alkaline Phos. 22 IU/L; LDH Body Fluid 48 U/L; Total Protein Body Fluid 1.3 g/dL; Triglycerides Body Fluid 25 mg/dL (0-150); Uric Acid Body Fluid 10 mg/dL
--- NOTE | 2023-01-30 15:19 | P.PN_ITS ---
Subjective Subjective: Status post paracentesis with removal of 4.7 L of fluid from the peritoneal cavity. SAAG > 1.1 consistent with portal hypertension. Awaiting labs today. Feels that his belly is more comfortable since paracentesis. Medications: Reviewed: Yes Vitals/I&O/Wt Last Vital Signs Temp 98.1 F 01/30/23 12:00 Pulse 71 01/30/23 12:00 Resp 17 01/30/23 12:00 BP 97/60 01/30/23 12:00 Pulse Ox 94 01/30/23 12:00 O2 Del Method Nasal Cannula 01/30/23 04:00 O2 Flow Rate 3 01/30/23 04:00 01/30/23 01/30/23 01/30/23 06:59 14:59 22:59 Intake Total 201 / 1401 720 / 720 Output Total 250 / 1200 4650 / 4650 Balance -49 / 201 -3930 / -3930 Physical Exam Narrative: General: No acute distress, AO x3 HEENT: PERRLA, pupils bilaterally equal and reactive, pallors not present Chest: Normal vesicular breath sounds, no added sounds, equal good air entry bilaterally CVS: S1-S2 regular, no murmurs, no tachycardia, no gallops, no rubs Abdomen: Soft, nontender, no organomegaly, bowel sounds present Neuro: No focal deficits, no facial deformity, AO x3, power 5/5 in all limbs Extremities: Bilateral lower extremity edema, today and lymphedema wraps Data 01/29/23 04:50 01/29/23 04:50 Other Labs: Color, BF YELLOW BF Appearance CLEAR Body Fluid WBC 303 /uL BF RBC 0 10^3/uL BF [place] % 78.900 % BF Poly % 21.100 % BF [place] # 0.239 BF Poly # 0.064 BF SG 1.010 Alk Phos Fluid 22 IU/L No established ranges or validation studies for analytes on body fluids. BF Glu 152.0 mg/dL NOTE NO REFERENCE RANGE BF TP 1.3 g/dL NOTE NO REFERENCE RANGE BF Alb 0.6 g/dL NOTE NO REFERENCE RANGE BF LDH 48 U/L NOTE NO REFERENCE RANGE BF Emmy 8 U/L NOTE NO REFERENCE RANGE BF Chol 15 0-200 mg/dL BF Trig 25 0-150 mg/dL BF Uric Acid 10 mg/dL NOTE NO REFERENCE RANGE BF pH 8.0 NOTE NO REFERENCE RANGE PATH Referral YES Fluid Lateralit PERITONEAL FLUID A&P Assessment and plan (1) Cirrhosis of liver: Noted to have cirrhosis of the liver on CT abdomen. This appears to be new for the patient. Comparative ultrasound only available from back in 2011 at which time patient was noted to have fatty liver. Possibly REGAN progressing to cirrhosis . negative hepatitis serology. elevated INR , low albumin concern for heptorenal syndrome as a cause of ZAHEER will need follow up with outpatient hepatology Qualifiers: Ascites presence: with ascites Hepatic cirrhosis type: unspecified hepatic cirrhosis Qualified Code(s): K74.60 - Unspecified cirrhosis of liver; R18.8 - Other ascites (2) Hepatorenal syndrome: worsening kidney function to 2.2 yesterday, labs pending today no proteinuria or HTN noted to have hypotension and hypoalbuminemia, likely related to cirrhosis and third spacing , suspect hepatic etiology over primary renal pathology Started treatment for HRS on 01/29 Continue Albumin, midodrine and octreotide infusion increase midodrine to 10mg TID as SBP continues to be 90-120 currently Hold diuresis for now given worsening cr , recheck today to decide regarding further diuresis (3) Anasarca: Etiology suspected to be related to cirrhosis Less likely heart failure given normal echo, BNP only 200 SAAG at 1.4 , correlated with portal HTN as the cause s/p paracentesis today with removal of 4.7L fluid with some symptomatic relief overnight placed on 3lpm supplemental 02 which has bene weaned off today, suspect related to poor ventilation from large ascites. (4) ZAHEER (acute kidney injury): ZAHEER , creatinine at 2.0. Previously known baseline in the computer is between 1.3-1.8 from 2018. No interim labs available. suspect HRS Plan DVT prophylaxis: Lovenox Full code Attestations Medical Necessity Statement*: continued treatment for hepatorenal syndrome as above Coding Level of Care Code Acute Code for Chg Fwd Diagnoses Cirrhosis of liver K74.60; R18.8 Ascites presence: with ascites Hepatic cirrhosis type: unspecified hepatic cirrhosis Hepatorenal syndrome K76.7 Anasarca R60.1 ZAHEER (acute kidney injury) N17.9
[2023-01-30 15:59] LABS: Basophils # 0.1 10^3/uL (0.0-0.1); Basophils % 0.7 %; Eosinophils # 0.5 10^3/uL (0.0-0.8); Hematocrit 27.2 % (37-53); Lymphocytes # 2.2 10^3/uL (0.8-4.8); Lymphocytes % 31.6 %; Mean Corpuscular HGB Conc 34.2 g/dL (30-55); Mean Corpuscular Hemoglobin 36.9 pg (27-33); Mean Corpuscular Volume 107.9 fl (82-101); Mean Platelet Volume 9.9 fL (7.4-10.4); Monocytes # 0.7 10^3/uL (0.2-0.9); Neutrophils # 3.46 10^3/uL (1.8-7.7); Neutrophils % 50.4 %; Nucleated Red Blood Cells % 0 %; Platelet Count 126 10^3/cmm (157-399); Red Blood Count 2.52 10^6/uL (3.85-5.65); Red Cell Distribution Width 13.3 % (12.1-15.1); White Blood Count 6.87 10^3/uL (3.29-11.43)
[2023-01-30 16:20] LABS: Alanine Aminotransferase 18 U/L (0-41); Albumin Level 2.8 g/dL (3.5-5.2); Alkaline Phosphatase 66 U/L (40-130); Anion Gap 14.3 (5-19); Aspartate Amino Transferase 33 U/L (0-40); Blood Urea Nitrogen 33 mg/dL (8-23); Calcium 8.6 mg/dL (8.5-10.5); Carbon Dioxide 25 mmol/L (22-29); Chloride 98 mmol/L (98-107); Globulin 2.5 g/dL (1.3-4.6); Glomerular Filtration Rate 32.4 mL/min (90-130); Glucose 146 mg/dL (65-115); Osmolality Calculated 286 mOsm/kg (285-295); Potassium 4.3 mmol/L (3.5-5.1); Sodium 133 mmol/L (136-145); Total Bilirubin 3.1 mg/dL (0.15-1.2); Total Protein 5.3 g/dL (6.6-8.7)
[2023-01-30] MEDS: enoxaparin 40 mg/0.4 mL Syringe SUBCUT (17:43)
--- NOTE | 2023-01-30 17:48 | US_ITS ---
WS: [id number] ULTRASOUND-GUIDED THERAPEUTIC AND DIAGNOSTIC PARACENTESIS Procedure, risks, and complications have been explained to the patient. Consent is obtained. Utilizing aseptic technique and 1% buffered lidocaine, a small dermatome was made through which a 5 F rench Yueh catheter was inserted. Approximately 4700 ml of clear peritoneal fluid was obtained witho ut difficulty. No complications encountered. IMPRESSION: Uncomplicated paracentesis yielding 4700 ml of peritoneal fluid.
[2023-01-30] MEDS: midodrine 5 mg TABLET 10 MG PO (20:20)
[2023-01-31] VITALS (10 sets, daily range): BP systolic 95–147; BP diastolic 53–75; PULSE 57–73; RESP 15–18; TEMP 36.4–37.2; O2SAT 91–93
[2023-01-31] MEDS: albumin 25 G/100 ML BAG 60 G IV ×2 (04:00→12:15)
[2023-01-31] MEDS: octreotide 500 MCG in sodium chloride 0.9% (100 ml) 100 ML 10.1 MCG IV ×2 (04:00→15:37)
[2023-01-31 04:36] LABS: Basophils % 0.7 %; Eosinophils # 0.2 10^3/uL (0.0-0.8); Eosinophils % 4.1 %; Hematocrit 28.1 % (37-53); Lymphocytes # 1.5 10^3/uL (0.8-4.8); Lymphocytes % 27.3 %; Mean Corpuscular HGB Conc 34.2 g/dL (30-55); Mean Corpuscular Hemoglobin 36.6 pg (27-33); Mean Corpuscular Volume 107.3 fl (82-101); Mean Platelet Volume 9.9 fL (7.4-10.4); Monocytes # 0.7 10^3/uL (0.2-0.9); Monocytes % 12.4 %; Neutrophils # 2.95 10^3/uL (1.8-7.7); Neutrophils % 55.3 %; Nucleated Red Blood Cells % 0 %; Platelet Count 108 10^3/cmm (157-399); Red Blood Count 2.62 10^6/uL (3.85-5.65); Red Cell Distribution Width 13.1 % (12.1-15.1); White Blood Count 5.34 10^3/uL (3.29-11.43)
[2023-01-31 05:04] LABS: Alanine Aminotransferase 18 U/L (0-41); Albumin Level 2.7 g/dL (3.5-5.2); Alkaline Phosphatase 70 U/L (40-130); Anion Gap 13.4 (5-19); Aspartate Amino Transferase 35 U/L (0-40); Blood Urea Nitrogen 32 mg/dL (8-23); Calcium 8.4 mg/dL (8.5-10.5); Carbon Dioxide 26 mmol/L (22-29); Chloride 99 mmol/L (98-107); Globulin 2.7 g/dL (1.3-4.6); Glomerular Filtration Rate 36.3 mL/min (90-130); Glucose 127 mg/dL (65-115); Osmolality Calculated 286 mOsm/kg (285-295); Potassium 4.4 mmol/L (3.5-5.1); Sodium 134 mmol/L (136-145); Total Bilirubin 4.3 mg/dL (0.15-1.2); Total Protein 5.4 g/dL (6.6-8.7)
[2023-01-31] MEDS: pantoprazole DR 40 mg Tablet PO (08:13)
[2023-01-31] MEDS: midodrine 5 mg TABLET 10 MG PO ×2 (08:14→15:37)
[2023-01-31 09:02] LABS: Potassium, Radom Urine 41 mmol/L; Urine Random Chloride 24 mmol/L; Urine Random Sodium 30 mmol/L
[2023-01-31] MEDS: ondansetron 2 mg/ML SDV 2 mL 4 MG IVP (15:14)
--- NOTE | 2023-01-31 16:21 | PM.PN ---
Subjective Subjective: cr improving at 1.9 today, c/o severe nausea since this afternoon BP 116-147 Medications: Reviewed: Yes Vitals/I&O/Wt Last Vital Signs Temp 97.5 F L 01/31/23 15:40 Pulse 73 01/31/23 15:40 Resp 18 01/31/23 15:40 BP 116/71 01/31/23 15:40 Pulse Ox 91 01/31/23 15:40 O2 Del Method Room Air 01/31/23 15:40 O2 Flow Rate 2 01/31/23 03:45 01/31/23 01/31/23 01/31/23 06:59 14:59 22:59 Intake Total 201 / 1922 600 / 600 201 / 801 Output Total 500 / 5150 Balance -299 / -3228 600 / 600 201 / 801 Physical Exam Narrative: General: No acute distress, AO x3 HEENT: PERRLA, pupils bilaterally equal and reactive, pallors not present Chest: Normal vesicular breath sounds, no added sounds, equal good air entry bilaterally CVS: S1-S2 regular, no murmurs, no tachycardia, no gallops, no rubs Abdomen: Soft, nontender, no organomegaly, bowel sounds present Neuro: No focal deficits, no facial deformity, AO x3, power 5/5 in all limbs Extremities: Gross anasarca. Data 01/31/23 03:59 01/31/23 03:59 Micro: Microbiology 01/30/23 10:59 Gram Stain - Final Peritoneal Fluid Anaerobic Culture - Preliminary Body Fluid Culture - Preliminary A&P Assessment and plan (1) Cirrhosis of liver: Noted to have cirrhosis of the liver on CT abdomen. This appears to be new for the patient. Comparative ultrasound only available from back in 2011 at which time patient was noted to have fatty liver. Possibly REGAN progressing to cirrhosis . negative hepatitis serology. elevated INR , low albumin concern for heptorenal syndrome as a cause of ZAHEER will need follow up with outpatient hepatology Qualifiers: Ascites presence: with ascites Hepatic cirrhosis type: unspecified hepatic cirrhosis Qualified Code(s): K74.60 - Unspecified cirrhosis of liver; R18.8 - Other ascites (2) Hepatorenal syndrome: worsening kidney function to 2.2 yesterday, labs pending today no proteinuria or HTN noted to have hypotension and hypoalbuminemia, likely related to cirrhosis and third spacing , suspect hepatic etiology over primary renal pathology Started treatment for HRS on 01/29 Continue Albumin, midodrine and octreotide infusion increase midodrine to 10mg TID as SBP continues to be 90-120 currently Hold diuresis for now given worsening cr , recheck today to decide regarding further diuresis (3) Anasarca: Etiology suspected to be related to cirrhosis Less likely heart failure given normal echo, BNP only 200 SAAG at 1.4 , correlated with portal HTN as the cause s/p paracentesis today with removal of 4.7L fluid with some symptomatic relief overnight placed on 3lpm supplemental 02 which has bene weaned off today, suspect related to poor ventilation from large ascites. (4) ZAHEER (acute kidney injury): ZAHEER , creatinine at 2.0. Previously known baseline in the computer is between 1.3-1.8 from 2018. No interim labs available. suspect HRS Plan DVT prophylaxis: Lovenox Full code Plan for today: Discontinue octreotide infusion as patient developing severe nausea this afternoon. Monitor kidney function in the a.m. Appears to be developing increasing abdominal tense distention again, need repeat paracentesis. Attestations Medical Necessity Statement*: Discontinue octreotide infusion given nausea, recheck kidney function in a.m. Coding Level of Care Code Acute Code for Chg Fwd Diagnoses Cirrhosis of liver K74.60; R18.8 Ascites presence: with ascites Hepatic cirrhosis type: unspecified hepatic cirrhosis Hepatorenal syndrome K76.7 Anasarca R60.1 ZAHEER (acute kidney injury) N17.9
[2023-01-31] MEDS: FUROsemide 10 mg/mL SDV 4mL 40 MG IVP (16:44)
[2023-01-31] MEDS: enoxaparin 40 mg/0.4 mL Syringe SUBCUT (17:35)
[2023-01-31] MEDS: albumin 25 G/100 ML VIAL IV (20:09)
[2023-01-31] MEDS: midodrine 5 mg TABLET PO (21:53)
[2023-02-01] VITALS (7 sets, daily range): BP systolic 111–126; BP diastolic 63–71; PULSE 52–74; RESP 16–18; TEMP 36.5–37; O2SAT 93–97
[2023-02-01] MEDS: albumin 25 G/100 ML VIAL IV (04:00)
[2023-02-01 06:34] LABS: Alanine Aminotransferase 16 U/L (0-41); Albumin Level 3.4 g/dL (3.5-5.2); Alkaline Phosphatase 62 U/L (40-130); Aspartate Amino Transferase 32 U/L (0-40); Blood Urea Nitrogen 29 mg/dL (8-23); Calcium 8.5 mg/dL (8.5-10.5); Carbon Dioxide 26 mmol/L (22-29); Chloride 99 mmol/L (98-107); Globulin 2.3 g/dL (1.3-4.6); Glomerular Filtration Rate 41.3 mL/min (90-130); Glucose 142 mg/dL (65-115); Osmolality Calculated 288 mOsm/kg (285-295); Sodium 135 mmol/L (136-145); Total Bilirubin 3.6 mg/dL (0.15-1.2); Total Protein 5.7 g/dL (6.6-8.7)
[2023-02-01 06:35] LABS: Anion Gap 14.2 (5-19); Potassium 4.2 mmol/L (3.5-5.1)
[2023-02-01] MEDS: midodrine 5 mg TABLET PO (09:27)
[2023-02-01] MEDS: pantoprazole DR 40 mg Tablet PO (09:27)
--- NOTE | 2023-02-01 18:37 | P.DS_ITS ---
Discharge Providers Date of Admission: 01/28/23 17:38 Date of Discharge: February 01, 2023 Attending Provider at Admission: Kristal Lay MD Attending Provider at Discharge: Kristal Lay MD Primary Care Provider: Fausto Poe MD Diagnoses at Discharge Discharge Diagnosis (1) Cirrhosis of liver: Status: Acute Qualifiers: Ascites presence: with ascites Hepatic cirrhosis type: unspecified hepatic cirrhosis Qualified Code(s): K74.60 - Unspecified cirrhosis of liver; R18.8 - Other ascites (2) Hepatorenal syndrome: Status: Acute (3) Anasarca: Status: Acute (4) ZAHEER (acute kidney injury): Status: Acute Reason for Visit Reason for Visit: body swelling, URQ abd pain Brief History: Jordi Pérez is a 62 year old male with a past medical history of CAD, presumed heart failure who has been having increasing generalized anasarca over the last 3 to 4 months in a background history of increasing LE edema over the past 1-2 years. Hospital Course Hospital Course Hospital course as below: (1) Cirrhosis of liver: Noted to have cirrhosis of the liver on CT abdomen. This appears to be new for the patient.? Comparative ultrasound only available from back in 2011 at which time patient was noted to have fatty liver. Possibly REGAN progressing to cirrhosis . negative hepatitis serology. elevated INR , low albumin correlating with likely chronic liver disease concern for heptorenal syndrome as a cause of ZAHEER will need follow up with outpatient hepatology and liver biopsy to establish diagnosis - referrals provided to hepatology in [place] and GI at [place]. (2) Hepatorenal syndrome: worsening kidney function with peak at 2.2 during admission, improved down to 1.7 by discharge noted to have hypotension and hypoalbuminemia, likely related to cirrhosis and third spacing , suspect hepatic etiology over primary renal pathology Started treatment for HRS with Albumin, midodrine and octreotide infusion, oct reotide eventually needed to be discontinued due to development of nausea. This resolved with stopping infusion. Midodrine was continued as without the medication his SBP ranged less than 100 systolic. Higher SBP was targetted due ro suspected HRS. Antihypertensives discontinued at discharge as patient did not require any during admission + targetting higher SBP ~ 120-130 for HRS. Lasix resumed at discharge. (3) Anasarca: Etiology? suspected to be related to cirrhosis Less likely heart failure given normal echo, BNP only 200 SAAG at 1.4 from paracentesis , correlated with portal HTN as the cause s/p paracentesis with removal of 4.7L fluid with some symptomatic relief with abdominal pain and dyspnea. May need more after discharge- ordered outpatient paracentesis in one week (4) ZAHEER (acute kidney injury): ZAHEER , improving at discharge Antihypertensives discontinued at discharge (5) LE edema: likely as part of anasarca LE venous duplex negatve for DVT May need reflux studies as outpatient additionally referred for lymphedema therapy , he benefitted from the same as an inpatient Physical Exam Narrative: General: No acute distress, AO x3 HEENT: PERRLA, pupils bilaterally equal and reactive, pallors not present Chest: Normal vesicular breath sounds, no added sounds, equal good air entry bilaterally CVS: S1-S2 regular, no murmurs, no tachycardia, no gallops, no rubs Abdomen: Soft, nontender, no organomegaly, bowel sounds present Neuro: No focal deficits, no facial deformity, AO x3, power 5/5 in all limbs Extremities: LE pitting edema + , lymphedema + Discharge Data Studies Completed and Pending Completed Studies During Hospitalization Category Date Time Status CT abdomen pelvis wo con [id number] Stat Cat Scan 01/28/23 14:57 Completed XR chest 1V portable [id number] Urgent Exams 01/28/23 13:57 [place] [id number] Routine Ultrasound 01/29/23 09:55 Completed CV. echo wo/w contrast [id number] Stat Ultrasound 01/28/23 17:36 Com[place]acent[place]d w [id number] Routine Ultrasound 01/30/23 17:48 Completed Pending at discharge Category Date Time Status Anaerobic Culture Routine Lab 01/30/23 10:59 Results Body Fluid Culture & GS Routine Lab 01/30/23 10:59 Results Mycobacteria, Culture w/Fluor Routine Lab 01/30/23 10:59 Results Cytology [PTH] Routine Pth 01/30/23 10:23 Received Radiology Impressions Venous Duplex 01/29/23 09:55 IMPRESSION: No evidence of deep vein thrombosis. Laboratory Results WBC 5.34 10^3/uL (3.29-11.43) 01/31/23 03:59 RBC 2.62 10^6/uL (3.85-5.65) L 01/31/23 03:59 Hgb 9.60 g/dL (11.27-16.99) L 01/31/23 03:59 Hct 28.1 % (37-53) L 01/31/23 03:59 MCV 107.3 fl (82-101) H 01/31/23 03:59 MCH 36.6 pg (27-33) H 01/31/23 03:59 MCHC 34.2 g/dL (30-55) 01/31/23 03:59 RDW 13.1 % (12.1-15.1) 01/31/23 03:59 Plt Count 108 10^3/cmm (157-399) L 01/31/23 03:59 MPV 9.9 fL (7.4-10.4) 01/31/23 03:59 Neut % (Auto) 55.3 % 01/31/23 03:59 Lymph % (Auto) 27.3 % 01/31/23 03:59 Emery % (Auto) 12.4 % 01/31/23 03:59 Eos % (Auto) 4.1 % 01/31/23 03:59 Baso % (Auto) 0.7 % 01/31/23 03:59 Neut # (Auto) 2.95 10^3/uL (1.8-7.7) 01/31/23 03:59 Lymph # (Auto) 1.5 10^3/uL (0.8-4.8) 01/31/23 03:59 Emery # (Auto) 0.7 10^3/uL (0.2-0.9) 01/31/23 03:59 Eos # (Auto) 0.2 10^3/uL (0.0-0.8) 01/31/23 03:59 Baso # (Auto) 0.0 10^3/uL (0.0-0.1) 01/31/23 03:59 Nucleated RBC % (auto) 0 % 01/31/23 03:59 Nucleated RBCs # 0.0 /100WBC 01/31/23 03:59 Differential Comment Yes 01/30/23 10:59 PT 18.60 SECONDS (12.1-14.9) H 01/28/23 14:00 INR 1.49 (0.8-1.2) H 01/28/23 14:00 Sodium 135 mmol/L (136-145) L 02/01/23 04:55 Potassium 4.2 mmol/L (3.5-5.1) 02/01/23 04:55 Chloride 99 mmol/L (98-107) 02/01/23 04:55 Carbon Dioxide 26 mmol/L (22-29) 02/01/23 04:55 Anion Gap 14.2 (5-19) 02/01/23 04:55 BUN 29 mg/dL (8-23) H 02/01/23 04:55 Creatinine 1.7 mg/dL (0.7-1.2) H 02/01/23 04:55 GFR Calculation 41.3 mL/min (90-130) L 02/01/23 04:55 Glucose 142 mg/dL (65-115) H 02/01/23 04:55 Calculated Osmolality 288 mOsm/kg (285-295) 02/01/23 04:55 Calcium 8.5 mg/dL (8.5-10.5) 02/01/23 04:55 Total Bilirubin 3.6 mg/dL (0.15-1.2) H 02/01/23 04:55 AST 32 U/L (0-40) 02/01/23 04:55 ALT 16 U/L (0-41) 02/01/23 04:55 Alkaline Phosphatase 62 U/L (40-130) 02/01/23 04:55 Troponin T Baseline 29 ng/L (0-15) H 01/28/23 14:00 Troponin T 120 Minute 27.58 ng/L (0-15) H 01/28/23 15:55 Delta Troponin T -1.42 ABS# (0-10) L 01/28/23 15:55 Troponin T Hi Sens 6Hr 26.01 ng/L (0-15) H 01/28/23 20:22 Troponin T Hi Sens 6Hr Delta -2.99 ng/L (0-12) L 01/28/23 20:22 NT-Pro-B Natriuret Pep 236 pg/mL (0-125) H 01/28/23 14:00 Total Protein 5.7 g/dL (6.6-8.7) L 02/01/23 04:55 Albumin 3.4 g/dL (3.5-5.2) L 02/01/23 04:55 Globulin 2.3 g/dL (1.3-4.6) 02/01/23 04:55 TSH 3.95 uIU/mL (0.27-4.20) 01/28/23 15:55 Urine Color Yellow (Yellow) 01/28/23 19:19 Urine Appearance Clear (CLEAR) 01/28/23 19:19 Urine pH 5 (5-7) 01/28/23 19:19 Ur Specific [place] 1.015 (1.005-1.030) 01/28/23 19:19 Urine Protein Neg (Negative) 01/28/23 19:19 Urine Glucose (UA) Norm (Normal) 01/28/23 19:19 Urine Ketones Negative (Negative) 01/28/23 19:19 Urine Blood Neg (Negative) 01/28/23 19:19 Urine Nitrate Negative (Negative) 01/28/23 19:19 Urine Bilirubin Neg (Negative) 01/28/23 19:19 Urine Urobilinogen Norm mg/dL (Negative) 01/28/23 19:19 Ur Leukocyte Esterase Negative (Negative) 01/28/23 19:19 Ur Random Sodium 30 mmol/L 01/31/23 08:15 Ur Random Potassium 41 mmol/L 01/31/23 08:15 Ur Random Chloride 24 mmol/L 01/31/23 08:15 Fluid Color Yellow 01/30/23 10:59 Fluid Appearance Clear 01/30/23 10:59 Fluid Specific Grav 1.010 01/30/23 10:59 Fluid pH 8.0 01/30/23 10:59 Fluid WBC 303 /uL 01/30/23 10:59 Fluid RBC 0 10^3/uL 01/30/23 10:59 Fld Polynuclear WBCs # 0.064 01/30/23 10:59 Fld Polynuclear WBCs % 21.100 % 01/30/23 10:59 Fl Mononucl WBCs #(Auto) 0.239 01/30/23 10:59 Fl Mononuclear % Auto 78.900 % 01/30/23 10:59 Fld Crystal Laterality Peritoneal fluid 01/30/23 10:59 Fluid Glucose 152.0 mg/dL 01/30/23 10:59 Fluid Total Protein 1.3 g/dL 01/30/23 10:59 Fluid Albumin 0.6 g/dL 01/30/23 10:59 Fluid LDH 48 U/L 01/30/23 10:59 Fluid Amylase 8 U/L 01/30/23 10:59 Fluid Alk Phosphatase 22 IU/L 01/30/23 10:59 Fluid Cholesterol 15 mg/dL (0-200) 01/30/23 10:59 Fluid Triglycerides 25 mg/dL (0-150) 01/30/23 10:59 Fluid Uric Acid 10 mg/dL 01/30/23 10:59 Hepatitis A IgM Ab Non-reactive (Nonreactive) 01/29/23 04:50 Hep Bs Antigen Non-reactive (Nonreactive) 01/29/23 04:50 Hep Bs Antibody 3.5 (11.5-1000) L 01/29/23 04:50 Hep B Core Total Ab Non-reactive (Nonreactive) 01/29/23 04:50 Hepatitis C Antibody Non-reactive (Nonreactive) 01/29/23 04:50 HIV 1&2 Ab & HIV 1 Ag Non-reactive (Non-Reactiv) 01/29/23 04:50 HIV 1&2 Antibody Non-reactive (Non-Reactiv) 01/29/23 04:50 Vitals Last Vital Signs Temp 97.8 F 02/01/23 13:12 Pulse 52 L 02/01/23 13:12 Resp 18 02/01/23 13:12 BP 126/71 02/01/23 13:12 Pulse Ox 97 02/01/23 13:12 O2 Del Method Room Air 02/01/23 12:00 O2 Flow Rate 3 01/31/23 20:00 Discharge Plan Discharge Patient Disposition: Home Condition: Stable Prescriptions: New midodrine 5 mg Tablet 5 mg PO TID 30 Days Qty: 90 0RF pantoprazole 40 mg Tablet,Delayed Release (Dr/Ec) 40 mg PO DAILY 30 Days Qty: 30 0RF Continued aspirin 81 mg Tablet,Delayed Release (Dr/Ec) 81 mg PO DAILY simvastatin 40 mg tablet 40 mg PO QPM Changed furosemide [Lasix] 40 mg tablet 40 mg PO 1XD Qty: 30 0RF Discontinued lisinopril-hydrochlorothiazide 20-12.5 mg tablet 1 tab PO BID Qty: 60 0RF Rx Instructions: MUST MAKE AN APPOINTMENT TO BE SEEN PRIOR TO ANY OTHER REFILLS metolazone 2.5 mg tablet 2.5 mg PO DAILY potassium chloride [Klor-Con M10] 10 mEq tablet,ER particles/crystals 10 meq PO BID metoprolol tartrate 25 mg tablet 25 mg PO BID Men's Daily Multivit-Mineral 0.4-600 mg-mcg Tablet 1 tab PO DAILY Discharge Orders: Discharge Order (Routine); Ordered 02/01/23 Ordered By: Kristal Lay Other Ambulatory Orders: US paracentesis abd w [id number] (Routine) Timeframe: 1 Week Facility: [facility] - Location: Radiology Ordered By: Kristal Lay Physical Therapy Eval and Treat Outpatient (Order) Timeframe: 1 Week Facility: [facility] [place] - Location: Physical Therapy Ordered By: Kristal Lay Referrals: [facility], Gastroenterology [Other] - 2 weeks (liver cirrhosis, new diagnosis, portal HTN, anasarca ) [facility] , Hepatology [Other] - 2 weeks Fausto Poe MD [Primary Care Provider] - 4-7 days (Please call Thursday to schedule a followup appointment with Dr. Poe.) Discharge Diet: Usual diet Discharge Activity: Resume usual activity Patient Instructions: Midodrine (By mouth), Pantoprazole (By mouth), Cirrhosis of the Liver (DC), Acute Kidney Injury (DC), Opioid Safety, Pain Management Discharge Attestations Time Spent in Discharge Care*: greater than 30 min Quality Metrics Clinical Quality Measures [ No reported AMI, CVA or VTE this stay] Coding Level of Care Code Acute Code for Chg Fwd Diagnoses Cirrhosis of liver K74.60; R18.8 Ascites presence: with ascites Hepatic cirrhosis type: unspecified hepatic cirrhosis Hepatorenal syndrome K76.7 Anasarca R60.1 ZAHEER (acute kidney injury) N17.9
--- NOTE | 2023-02-24 09:10 | PC.SOCIAL ---
Referrals Received an email from [facility] stating that patient was inquiring about referrals. Called patient at this time, patient's reports that she called weeks ago. CM apologized and informed that I just received email yesterday afternoon around 1600. Offered help with referrals. She states, that's alright, bye and hung up on this CM.
== END 2023-02-01 13:13 | disposition home or self-care (01) | DRG 432 ==
LOC: ER 16:12 → MEDSURG 17:39
PROVIDERS: Admitting Provider Student in an Organized Health Care Education/Training Program; Emergency Provider Physician Assistant; PCP Family Medicine; Visit Provider Student in an Organized Health Care Education/Training Program
DX: K74.60 Unspecified cirrhosis of liver (principal); K76.7 Hepatorenal syndrome; K76.6 Portal hypertension; N17.9 Acute kidney failure, unspecified; R18.8 Other ascites; I25.10 Atherosclerotic heart disease of native coronary artery without angina pectoris; K75.81 Nonalcoholic steatohepatitis (NASH); I95.9 Hypotension, unspecified; I89.0 Lymphedema, not elsewhere classified; Z79.82 Long term (current) use of aspirin; F17.200 Nicotine dependence, unspecified, uncomplicated; I10 Essential (primary) hypertension; E78.5 Hyperlipidemia, unspecified; N52.9 Male erectile dysfunction, unspecified
CPT/HCPCS: 36415; 49083; 71045; 74176; 80053; 80503; 81003; 82042; 82150; 82436; 82465; 82945; 83615; 83880; 83986; 84075; 84133; 84157; 84300; 84315; 84443; 84478; 84484; 84560; 85025; 85610; 86705; 86706; 86709; 86803; 87015; 87070; 87075; 87116; 87205; 87206; 87340; 87801; 87806; 88112; 88305; 89050; 93005; 93970; 96372; 96374; 96375; 97124; 97167; 99285; C8929; J1650; J1940; J2354; J2405; P9045; P9046; P9047; Q9956

== ENCOUNTER 2023-02-05 09:21 | Inpatient (IN) | payer SELFPAY ==
[2023-02-05] VITALS (90 sets, daily range): BP systolic 95–194; BP diastolic 53–123; PULSE 57–149; RESP 13–23; TEMP 36.2–37; O2SAT 85–99
--- NOTE | 2023-02-05 09:24 | ECG_ITS ---
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 Measurements Intervals [place] Rate: 116 P: 44 DE: 152 QRS: -4 QRSD: 93 T: 33 QT: 354 QTc: 492 Interpretive Statements SINUS TACHYCARDIA NONSPECIFIC T-WAVE ABNORMALITY ABNORMAL RHYTHM ECG Compared to ECG 01/28/2023 20:37:48 T-wave abnormality now present Sinus rhythm no longer present Myocardial infarct finding no longer present Electronically Signed On 02-05-2023 11:30:59 CDT by Tana Arredondo M.D. [email or web address]
--- NOTE | 2023-02-05 09:36 | CT_ITS ---
WS: [id number] CT HEAD NONCONTRAST HISTORY: AMS TECHNIQUE: Contiguous axial imaging performed through the brain in 2.5 mm imaging. Bone and soft tiss ue windows. Sagittal and coronal reformats reviewed. All CT scans at [facility] use at least one of these dose optimization techniques: automated exposure control; mA and/or kV adjustment per pa tient size (includes targeted exams where dose is matched to clinical indication); or iterative recon struction. DLP: 1210.89 mGy.cm COMPARISON: None available. No acute intracranial hemorrhage, midline shift or mass effect. Mild atrophy and mild small vessel ischemic disease. No prior infarct. Ventricles: Normal size with no hydrocephalus. No inferior displacement of the cerebellar tonsils. Paranasal sinuses: As visualized are clear. Mastoid air cells: Well pneumatized. Calvarium and scalp: Skull is intact with no soft tissue edema or swelling. IMPRESSION: 1. No acute intracranial hemorrhage or edema. 2. Mild volume loss and atrophy and small vessel ischemic disease.
--- NOTE | 2023-02-05 09:36 | XR_ITS ---
WS: [id number] Exam: XR chest 1V portable [id number] Date/Time of Exam: 02/05/2023 9:36 AM Reason For Exam: AMS Comparison 01/28/2023. Mild RIGHT perihilar infiltrate. LEFT lung is clear. No pleural effusions or pneumothorax. Normal car diomediastinal silhouette. Regional bony elements are intact. IMPRESSION: 1. Mild RIGHT perihilar infiltrate. Developing pneumonia is not excluded.
--- NOTE | 2023-02-05 09:45 | US_ITS ---
WS: [id number] INDICATION: SBP TECHNIQUE: Four-quadrant ultrasound abdomen FINDINGS: Four-quadrant ultrasound. Insufficient fluid for paracentesis or sampling. IMPRESSION: See above
--- NOTE | 2023-02-05 09:45 | W.ED.AMS ---
Documented by User: LUKE Vizcarra 02/05/23 12:50 HPI - Altered Mental Status General: Chief Complaint: Altered Mental Status Stated Complaint: ams Time Seen by Provider: 02/05/23 09:25 Source: patient, family ( later arrives and provides history) and EMS Mode of arrival: EMS Limitations: altered mental status History of Present Illness: Patient is a 62-year-old male who is known to me as I treated him last week and admitted him to the hospital here via EMS for altered mental status. Last week he was seen secondary to diffuse anasarca. He was admitted to the hospital for concerns of liver cirrhosis and possible CHF. While in the hospital he had 4.7 L of fluid drained from his abdomen. Looking at hospitalist note they felt like patient's symptoms were all secondary to liver cirrhosis and hepatorenal syndrome. He surprisingly had a normal echocardiogram. states while in the hospital he started slurring his speech. She states they were discharged on 02/01 and patient seemed to be doing okay but yesterday evening began feeling very fatigued and seemed slightly altered. She states he would not answer questions when asked. She states this morning she tried to awaken patient and was unable even after sternal rub thus called EMS. Upon initial examination patient is significantly altered (slightly belligerent/combative) which is much different than his presentation last week as he was pleasant, talkative, joking, etc. He himself is not able to provide any history whatsoever at this time secondary to mental status. MD complaint: altered mental status, confusion and decreased responsiveness Onset (ago): day(s) (starting yesterday evening ) Timing confirmed by: spouse Severity: severe Consistency of symptoms: Getting Worse Context: liver disease Treatments prior to arrival: other (POC glucose by EMS 160s) Review of Systems General: Reports: ROS unobtainable due to medical condition and ROS unobtainable due to mental status PFSH ED PFSH: Medical History Coronary artery disease FH: cholecystectomy HTN (hypertension) Hyperlipidemia, unspecified Male erectile dysfunction, unspecified Tobacco abuse Surgical History Stented coronary artery Family History Brother CAD (coronary artery disease) Hypertension Father Family history of premature coronary artery disease Hypertension Stroke Social History Smoking and tobacco/nicotine status: current every day tobacco/nicotine user Quit status (tobacco/nicotine): has tried quititng Course ED course: Dr. Veras immediately made aware of patient/condition. He will also assess patient and assume care to due acuity level. We are holding off on any type of sepsis bolus at this time secondary to patient's flulid overload status. Vital Signs: Vital signs: Vital Signs Temperature 98.3 F 02/05/23 09:22 Pulse Rate 117 H 02/05/23 10:10 Respiratory Rate 22 H 02/05/23 10:10 Blood Pressure 156/117 02/05/23 10:10 Pulse Oximetry 94 02/05/23 10:10 Oxygen Delivery Me thod Room Air 02/05/23 10:10 MDM - Altered Mental Status Medical Decision Making Please see Dr. Veras's note as he assumed care of this patient. ES Lab Data 02/05/23 09:55 02/05/23 09:55 Laboratory Results WBC 9.19 10^3/uL (3.29-11.43) 02/05/23 09:55 RBC 3.32 10^6/uL (3.85-5.65) L 02/05/23 09:55 Hgb 12.40 g/dL (11.27-16.99) 02/05/23 09:55 Hct 34.6 % (37-53) L 02/05/23 09:55 MCV 104.2 fl (82-101) H 02/05/23 09:55 MCH 37.3 pg (27-33) H 02/05/23 09:55 MCHC 35.8 g/dL (30-55) 02/05/23 09:55 RDW 13.3 % (12.1-15.1) 02/05/23 09:55 Plt Count 142 10^3/cmm (157-399) L 02/05/23 09:55 MPV 9.5 fL (7.4-10.4) 02/05/23 09:55 Neut % (Auto) 79.7 % 02/05/23 09:55 Lymph % (Auto) 12.8 % 02/05/23 09:55 Hemphill % (Auto) 6.6 % 02/05/23 09:55 Eos % (Auto) 0.2 % 02/05/23 09:55 Baso % (Auto) 0.4 % 02/05/23 09:55 Neut # (Auto) 7.31 10^3/uL (1.8-7.7) 02/05/23 09:55 Lymph # (Auto) 1.2 10^3/uL (0.8-4.8) 02/05/23 09:55 Hemphill # (Auto) 0.6 10^3/uL (0.2-0.9) 02/05/23 09:55 Eos # (Auto) 0.0 10^3/uL (0.0-0.8) 02/05/23 09:55 Baso # (Auto) 0.0 10^3/uL (0.0-0.1) 02/05/23 09:55 Nucleated RBC % (auto) 0 % 02/05/23 09:55 Nucleated RBCs # 0.0 /100WBC 02/05/23 09:55 PT 21.50 SECONDS (12.1-14.9) H 02/05/23 09:55 INR 1.80 (0.8-1.2) H 02/05/23 09:55 APTT 39.0 SECONDS (23.9-36.7) H 02/05/23 09:55 Specimen Type Arterial 02/05/23 09:48 Sample Site Radial, left 02/05/23 09:48 ABG pH 7.52 (7.35-7.45) H 02/05/23 09:48 ABG pCO2 29.8 mmHg (35-45) L 02/05/23 09:48 ABG pO2 59.9 mmHg (80.0-100.0) L 02/05/23 09:48 ABG HCO3 24.1 mmol/L (22-26) 02/05/23 09:48 ABG O2 Saturation 93.4 02/05/23 09:48 ABG Base Excess 1.9 mmol/L (-2.0-2.0) 02/05/23 09:48 Kevin Test Pos 02/05/23 09:48 A-a O2 Gradient 6.8 mmHg (5-10) 02/05/23 09:48 Hematocrit 38.4 % (42-52) L 02/05/23 09:48 Hgb O2 Saturation 91.0 % (95-100) L 02/05/23 09:48 Carboxyhemoglobin 1.9 %THgb (0.4-20.1) 02/05/23 09:48 Methemoglobin 0.6 % (0.4-1.5) 02/05/23 09:48 Total Hemoglobin 12.5 g/dL (14-18) L 02/05/23 09:48 Sodium 136.0 mmol/L (131-143) 02/05/23 09:48 Potassium 3.5 mmol/L (3.5-5.0) 02/05/23 09:48 Glucose 138.0 mg/dL (70-115) H 02/05/23 09:48 Ionized Calcium 1.1 mmol/L (1.1-1.4) 02/05/23 09:48 O2 Delivery Device Room air 02/05/23 09:48 FiO2 21.0 % 02/05/23 09:48 Electrical Equipment Assembler ID Cak 02/05/23 09:48 Sodium 134 mmol/L (136-145) L 02/05/23 09:55 Potassium 3.7 mmol/L (3.5-5.1) 02/05/23 09:55 Chloride 99 mmol/L (98-107) 02/05/23 09:55 Carbon Dioxide 22 mmol/L (22-29) 02/05/23 09:55 Anion Gap 16.7 (5-19) 02/05/23 09:55 BUN 16 mg/dL (8-23) 02/05/23 09:55 Creatinine 1.3 mg/dL (0.7-1.2) H 02/05/23 09:55 GFR Calculation 56.3 mL/min (90-130) L 02/05/23 09:55 Glucose 149 mg/dL (65-115) H 02/05/23 09:55 Calculated Osmolality 282 mOsm/kg (285-295) L 02/05/23 09:55 Lactic Acid 3.0 mmol/L (0.5-2.2) H 02/05/23 09:55 Calcium 8.9 mg/dL (8.5-10.5) 02/05/23 09:55 Total Bilirubin 3.4 mg/dL (0.15-1.2) H 02/05/23 09:55 AST 49 U/L (0-40) H 02/05/23 09:55 ALT 25 U/L (0-41) 02/05/23 09:55 Alkaline Phosphatase 77 U/L (40-130) 02/05/23 09:55 Ammonia 188 umol/L (16-60) H 02/05/23 09:55 Creatine Kinase 69 U/L (39-308) 02/05/23 09:55 Troponin T Baseline 23 ng/L (0-15) H 02/05/23 09:55 Troponin T 120 Minute 24.86 ng/L (0-15) H 02/05/23 11:48 Delta Troponin T 1.86 ABS# (0-10) 02/05/23 11:48 C-Reactive Protein 15.8 mg/L (0.0-4.9) H 02/05/23 09:55 NT-Pro-B Natriuret Pep 612 pg/mL (0-125) H 02/05/23 09:55 Total Protein 6.6 g/dL (6.6-8.7) 02/05/23 09:55 Albumin 3.7 g/dL (3.5-5.2) 02/05/23 09:55 Globulin 2.9 g/dL (1.3-4.6) 02/05/23 09:55 All radiology interpretation(s) finalized by discharge Discharge Plan Discharge Patient Disposition: Admitted As Inpatient Admit Provider: Norbert Darling Clinical Impression: Encephalopathy, hepatic, Cirrhosis of liver, AMS (altered mental status), Hyperammonemia, Hepatorenal syndrome Condition: Stable 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 Confused disoriented. He was recently hospitalized and had a very normal baseline was responsive at that time his fluid overload he was admitted to the hospital he had several paracentesis he had an echocardiogram that was normal. Family reports that he had been getting progressively fatigued and slightly altered culminating today when he was markedly disoriented and off of his baseline. He been discharged from the hospital here on February 01. Patient initially seen by LUKE Vizcarra see her notes. Assumed care of the case. MD complaint: altered mental status, confusion and decreased responsiveness Severity: severe Consistency of symptoms: Getting Worse Context: liver disease Review of Systems General: Reports: ROS unobtainable due to mental status PFSH ED PFSH: Medical History Coronary artery disease FH: cholecystectomy HTN (hypertension) Hyperlipidemia, unspecified Male erectile dysfunction, unspecified Tobacco abuse Surgical History Stented coronary artery Family History Brother CAD (coronary artery disease) Hypertension Father Family history of premature coronary artery disease Hypertension Stroke Social History Smoking and tobacco/nicotine status: current every day tobacco/nicotine user Quit status (tobacco/nicotine): has tried quititng Physical Exam HENMT: COMMON NORMALS: normocephalic, atraumatic and hearing grossly normal bilaterally HEAD & SCALP: normocephalic and atraumatic Resp: OTHER: Sonorous respirations with rhonchi. Cardio: COMMON NORMALS: regular rhythm and No murmurs present (Cardio) RATE: tachycardic RHYTHM: regular rhythm GI: COMMON NORMALS: Soft to palpation and No hepatosplenomegaly present AUSCULTATION: Yes normoactive bowel sounds PALPATION: Yes Soft to palpation, No Tenderness to palpation present (GI), No Guarding due to palpation present (GI) and Yes No hepatosplenomegaly present Extremity: OTHER: 2+ edema in lower extremities Skin: COMMON NORMALS: no rashes or lesions noted GENERAL SKIN EXAM: no rashes or lesions noted Course Vital Signs: Vital signs: Vital Signs Temperature 98.3 F 02/05/23 09:22 Pulse Rate 117 H 02/05/23 10:10 Respiratory Rate 22 H 02/05/23 10:10 Blood Pressure 156/117 02/05/23 10:10 Pulse Oximetry 94 02/05/23 10:10 Oxygen Delivery Me thod Room Air 02/05/23 10:10 MDM - Altered Mental Status Medical Decision Making Liver disease. Patient will be admitted to the . Hepatic encephalopathy caused by worsening lactulose retention enema. Discussed with hospitalist orders written CT of the head negative. We will also cover him for possibility of SBP. We did do an ultrasound were not able to identify a pocket of fluid enough to get fluid drawn off for culture unfortunately. Additionally complicating measures is that his hepatic encephalopathy has left him somewhat aggressive he may end up ultimately needing sedation.U Medical Records I reviewed the patient's medical records. Lab Data I reviewed the patient's lab results. 02/05/23 09:55 02/05/23 09:55 Laboratory Results WBC 9.19 10^3/uL (3.29-11.43) 02/05/23 09:55 RBC 3.32 10^6/uL (3.85-5.65) L 02/05/23 09:55 Hgb 12.40 g/dL (11.27-16.99) 02/05/23 09:55 Hct 34.6 % (37-53) L 02/05/23 09:55 MCV 104.2 fl (82-101) H 02/05/23 09:55 MCH 37.3 pg (27-33) H 02/05/23 09:55 MCHC 35.8 g/dL (30-55) 02/05/23 09:55 RDW 13.3 % (12.1-15.1) 02/05/23 09:55 Plt Count 142 10^3/cmm (157-399) L 02/05/23 09:55 MPV 9.5 fL (7.4-10.4) 02/05/23 09:55 Neut % (Auto) 79.7 % 02/05/23 09:55 Lymph % (Auto) 12.8 % 02/05/23 09:55 Hemphill % (Auto) 6.6 % 02/05/23 09:55 Eos % (Auto) 0.2 % 02/05/23 09:55 Baso % (Auto) 0.4 % 02/05/23 09:55 Neut # (Auto) 7.31 10^3/uL (1.8-7.7) 02/05/23 09:55 Lymph # (Auto) 1.2 10^3/uL (0.8-4.8) 02/05/23 09:55 Hemphill # (Auto) 0.6 10^3/uL (0.2-0.9) 02/05/23 09:55 Eos # (Auto) 0.0 10^3/uL (0.0-0.8) 02/05/23 09:55 Baso # (Auto) 0.0 10^3/uL (0.0-0.1) 02/05/23 09:55 Nucleated RBC % (auto) 0 % 02/05/23 09:55 Nucleated RBCs # 0.0 /100WBC 02/05/23 09:55 PT 21.50 SECONDS (12.1-14.9) H 02/05/23 09:55 INR 1.80 (0.8-1.2) H 02/05/23 09:55 APTT 39.0 SECONDS (23.9-36.7) H 02/05/23 09:55 Specimen Type Arterial 02/05/23 09:48 Sample Site Radial, left 02/05/23 09:48 ABG pH 7.52 (7.35-7.45) H 02/05/23 09:48 ABG pCO2 29.8 mmHg (35-45) L 02/05/23 09:48 ABG pO2 59.9 mmHg (80.0-100.0) L 02/05/23 09:48 ABG HCO3 24.1 mmol/L (22-26) 02/05/23 09:48 ABG O2 Saturation 93.4 02/05/23 09:48 ABG Base Excess 1.9 mmol/L (-2.0-2.0) 02/05/23 09:48 Kevin Test Pos 02/05/23 09:48 A-a O2 Gradient 6.8 mmHg (5-10) 02/05/23 09:48 Hematocrit 38.4 % (42-52) L 02/05/23 09:48 Hgb O2 Saturation 91.0 % (95-100) L 02/05/23 09:48 Carboxyhemoglobin 1.9 %THgb (0.4-20.1) 02/05/23 09:48 Methemoglobin 0.6 % (0.4-1.5) 02/05/23 09:48 Total Hemoglobin 12.5 g/dL (14-18) L 02/05/23 09:48 Sodium 136.0 mmol/L (131-143) 02/05/23 09:48 Potassium 3.5 mmol/L (3.5-5.0) 02/05/23 09:48 Glucose 138.0 mg/dL (70-115) H 02/05/23 09:48 Ionized Calcium 1.1 mmol/L (1.1-1.4) 02/05/23 09:48 O2 Delivery Device Room air 02/05/23 09:48 FiO2 21.0 % 02/05/23 09:48 Electrical Equipment Assembler ID Cak 02/05/23 09:48 Sodium 134 mmol/L (136-145) L 02/05/23 09:55 Potassium 3.7 mmol/L (3.5-5.1) 02/05/23 09:55 Chloride 99 mmol/L (98-107) 02/05/23 09:55 Carbon Dioxide 22 mmol/L (22-29) 02/05/23 09:55 Anion Gap 16.7 (5-19) 02/05/23 09:55 BUN 16 mg/dL (8-23) 02/05/23 09:55 Creatinine 1.3 mg/dL (0.7-1.2) H 02/05/23 09:55 GFR Calculation 56.3 mL/min (90-130) L 02/05/23 09:55 Glucose 149 mg/dL (65-115) H 02/05/23 09:55 Calculated Osmolality 282 mOsm/kg (285-295) L 02/05/23 09:55 Lactic Acid 3.0 mmol/L (0.5-2.2) H 02/05/23 09:55 Calcium 8.9 mg/dL (8.5-10.5) 02/05/23 09:55 Total Bilirubin 3.4 mg/dL (0.15-1.2) H 02/05/23 09:55 AST 49 U/L (0-40) H 02/05/23 09:55 ALT 25 U/L (0-41) 02/05/23 09:55 Alkaline Phosphatase 77 U/L (40-130) 02/05/23 09:55 Ammonia 188 umol/L (16-60) H 02/05/23 09:55 Creatine Kinase 69 U/L (39-308) 02/05/23 09:55 Troponin T Baseline 23 ng/L (0-15) H 02/05/23 09:55 Troponin T 120 Minute 24.86 ng/L (0-15) H 02/05/23 11:48 Delta Troponin T 1.86 ABS# (0-10) 02/05/23 11:48 C-Reactive Protein 15.8 mg/L (0.0-4.9) H 02/05/23 09:55 NT-Pro-B Natriuret Pep 612 pg/mL (0-125) H 02/05/23 09:55 Total Protein 6.6 g/dL (6.6-8.7) 02/05/23 09:55 Albumin 3.7 g/dL (3.5-5.2) 02/05/23 09:55 Globulin 2.9 g/dL (1.3-4.6) 02/05/23 09:55 Discharge Plan Discharge Patient Disposition: Admitted As Inpatient Admit Provider: Norbert Darling Clinical Impression: Encephalopathy, hepatic, Cirrhosis of liver, AMS (altered mental status), Hyperammonemia, Hepatorenal syndrome Condition: Stable 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
[2023-02-05 09:59] LABS: ABG PCO2 29.8 mmHg (35-45); ABG PH Result 7.52 (7.35-7.45); Alveolar-Arterial Oxygen Gradi 6.8 mmHg (5-10); Arterial Blood Gas Hematocrit 38.4 % (42-52); Base Excess ABG 1.9 mmol/L (-2.0-2.0); Blood Gas Allen Test Pos; Blood Gas Operator Identificat CAK; Blood Gas Sample Site Radial, left; Blood Gas Sample Type Arterial; Carboxyhemoglobin 1.9 %THgb (0.4-20.1); HCO3 ABG 24.1 mmol/L (22-26); Ionized Calcium Level - ABG 1.1 mmol/L (1.1-1.4); Methemoglobin 0.6 % (0.4-1.5); Oxygen Device ROOM AIR; Oxygen Saturation ABG 93.4; PO2 ABG 59.9 mmHg (80.0-100.0); Potassium Level - ABG 3.5 mmol/L (3.5-5.0); Total Hemoglobin 12.5 g/dL (14-18)
[2023-02-05 10:03] LABS: Basophils % 0.4 %; Eosinophils % 0.2 %; Hematocrit 34.6 % (37-53); Lymphocytes # 1.2 10^3/uL (0.8-4.8); Lymphocytes % 12.8 %; Mean Corpuscular HGB Conc 35.8 g/dL (30-55); Mean Corpuscular Hemoglobin 37.3 pg (27-33); Mean Corpuscular Volume 104.2 fl (82-101); Mean Platelet Volume 9.5 fL (7.4-10.4); Monocytes # 0.6 10^3/uL (0.2-0.9); Monocytes % 6.6 %; Neutrophils # 7.31 10^3/uL (1.8-7.7); Neutrophils % 79.7 %; Nucleated Red Blood Cells % 0 %; Platelet Count 142 10^3/cmm (157-399); Red Blood Count 3.32 10^6/uL (3.85-5.65); Red Cell Distribution Width 13.3 % (12.1-15.1); White Blood Count 9.19 10^3/uL (3.29-11.43)
[2023-02-05 10:22] LABS: Ammonia 188 umol/L (16-60)
[2023-02-05 10:25] LABS: Troponin(5th) Baseline 23 ng/L (0-15)
[2023-02-05] MEDS: cefTRIAXone 2,000 MG in sodium chloride 0.9% (plus) 50 ML 100 MG IV (10:43)
[2023-02-05 10:57] LABS: Alanine Aminotransferase 25 U/L (0-41); Albumin Level 3.7 g/dL (3.5-5.2); Alkaline Phosphatase 77 U/L (40-130); Anion Gap 16.7 (5-19); Aspartate Amino Transferase 49 U/L (0-40); Blood Urea Nitrogen 16 mg/dL (8-23); C Reactive Protein 15.8 mg/L (0.0-4.9); Calcium 8.9 mg/dL (8.5-10.5); Carbon Dioxide 22 mmol/L (22-29); Chloride 99 mmol/L (98-107); Creatine Phosphokinase 69 U/L (39-308); Globulin 2.9 g/dL (1.3-4.6); Glomerular Filtration Rate 56.3 mL/min (90-130); Glucose 149 mg/dL (65-115); Osmolality Calculated 282 mOsm/kg (285-295); Potassium 3.7 mmol/L (3.5-5.1); Sodium 134 mmol/L (136-145); Total Bilirubin 3.4 mg/dL (0.15-1.2); Total Protein 6.6 g/dL (6.6-8.7)
[2023-02-05 11:22] LABS: NT Pro B Type Natriuretic Pept 612 pg/mL (0-125)
[2023-02-05 11:47] LABS: Reflex Lactate Order REFLEX LACTIC ORDERD
--- NOTE | 2023-02-05 11:47 | ECG_ITS ---
[facility] Test Date: 2023-02-05 Pat Name: Jordi Pérez Department: Room: Gender: Male Pattern Illustrator: : 1960 Requested By: Ray Valencia Order Number: [id number] Jairo MD: Tana Arredondo M.D. Measurements Intervals [place] Rate: 99 P: 25 AK: 182 QRS: 27 QRSD: 82 T: 32 QT: 342 QTc: 439 Interpretive Statements SINUS RHYTHM LOW QRS VOLTAGE IN PRECORDIAL LEADS [QRS DEFLECTION < 1.0 mV IN CHEST LEADS] NONSPECIFIC T-WAVE ABNORMALITY Compared to ECG 02/05/2023 09:24:54 Low QRS voltage now present Sinus tachycardia no longer present T-wave abnormality still present Electronically Signed On 02-05-2023 16:45:15 CDT by Tana Arredondo M.D. [id number]
[2023-02-05 12:20] LABS: Troponin 5 2HR 24.86 ng/L (0-15)
[2023-02-05 12:23] LABS: Troponin 5 2HR Delta 1.86 ABS# (0-10)
[2023-02-05] MEDS: dexmedetomidine 400 MCG in sodium chloride 0.9% (100 ml) 100 ML IV (13:52)
[2023-02-05 14:20] LABS: Lactic Acid level (Lactate) 4.5 mmol/L (0.5-2.2)
[2023-02-05 14:32] LABS: Bilirubin Urine Neg (Negative); Blood Urine Trace (Negative); Glucose Urine UA Norm (Normal); Ketones Urine Negative (Negative); Leukocyte Esterase Urine Negative (Negative); Nitrate Urine Negative (Negative); Protein Urine Neg (Negative); Sulfosalicylic Acid Urine Negative (Negative); Urine Appearance Clear (CLEAR); Urine Color Yellow (Yellow); pH Urine 8 (5-7)
[2023-02-05 14:33] LABS: Add Urine Microscopic? YES; Bacteria Urine TRACE /hpf; RBC Urine 0-4 /hpf (0-2); Squamous Epithelial Cell Urine RARE /hpf (0-5); Urobilinogen Urine 1 mg/dL (Negative)
[2023-02-05 14:34] LABS: Add Urine Culture? No; Amphetamines Screen Urine Negative (Negative); Barbiturates Screen Urine Negative (Negative); Benzodiazepines Screen Urine Negative (Negative); Cocaine Screen Urine Negative (Negative); Opiate Screen Urine Negative (Negative); PCP Screen Urine Negative (Negative); THC Screen Urine Negative (Negative); WBC Urine 0-4 /hpf (0-5)
[2023-02-05] MEDS: D5-NS 0.45% + KCL 20 mEq 20 MEQ/1,000 ML BAG 75 MEQ IV (14:59)
[2023-02-05] MEDS: enoxaparin 40 mg/0.4 mL Syringe SUBCUT (15:02)
--- NOTE | 2023-02-05 15:45 | XR_ITS ---
WS: [id number] Exam: XR chest 1V portable [id number] Date/Time of Exam: 02/05/2023 3:45 PM Reason For Exam: NG Comparison made with prior exam performed earlier on the same day at 9:44 a.m. An enteric tube has been inserted and ends in the body of the stomach. Again noted is infiltrate in t he RIGHT basal region unchanged. The lungs remain fully expanded. Cardiomediastinal silhouette is unr emarkable for technique. Bony structures are normal in appearance. IMPRESSION: 1. Enteric tube appearing to end in the body of the stomach. 2. RIGHT basal infiltrate unchanged.
[2023-02-05] MEDS: LORazepam 2 mg/mL INJ 1 mL IVP (15:56)
[2023-02-05] MEDS: lactulose oral liq 20 gm/30 mL UDC 30 GM PO ×4 (16:01→23:09)
--- NOTE | 2023-02-05 17:02 | PC.NURSE ---
received patient from ER staff at 1243. Patient is yelling at staff and attempting to kick, punch, and bite staff. BP: 147/86, HR: 99, SPO2: 98% on room air, temperature is 98.2.
--- NOTE | 2023-02-05 17:04 | PC.NURSE ---
Dr Valencia at bedside. D0u to patient;s escalating aggression towards staff and attempts to remove IVs, soft restraints applied to wrists. Precedex started to calm patient and ativan given IV. NG tube started so first dose of lactulose can be given.
--- NOTE | 2023-02-05 17:25 | P.HP_ITS ---
Providers/Chief Complaint Admitting Physician: Norbert Darling DO Primary Care Provider: Fausto Poe MD Chief Complaint: ams History of Present Illness Jordi Pérez is a 62 year old male who was discharged from hospital 4 days ago after a 4-day hospitalization. gives history as patient is unable. She states that his swelling never got better and he started to get confused and slurring his words prior to discharge. Yesterday evening he was getting more fatigued and seemed altered again. He would not answer questions when asked. She tried to wake him this morning and was unable to arouse him. She called 911. In the emergency room the patient was significantly altered and actually somewhat belligerent and combative when trying to assess him. He was found to have an ammonia level of 188. He will be admitted for aggressive treatment. He will have to be placed in the ICU for a Precedex drip in order to obtain appropriate treatment. Review of Systems General: Reports: ROS unobtainable due to medical condition and ROS unobtainable due to mental status Medications/Allergies Home Medications Medication Instructions Recorded Confirmed Last Taken Type aspirin 81 mg tablet,delayed 81 mg PO DAILY 01/28/23 02/05/23 02/04/23 History release simvastatin 40 mg tablet 40 mg PO QPM 01/28/23 02/05/23 02/04/23 History furosemide 40 mg tablet (Lasix) 40 mg PO 1XD #30 tabs 02/01/23 02/05/23 02/04/23 Rx midodrine 5 mg tablet 5 mg PO TID 30 days #90 tabs 02/01/23 02/05/23 02/04/23 Rx pantoprazole 40 mg tablet,delayed 40 mg PO DAILY 30 days #30 tabs 02/01/23 02/05/23 02/04/23 Rx release Allergies Allergy/AdvReac Type Severity Reaction Status Date / Time No Known Allergies Allergy Verified 12/09/21 15:13 PFSH Acute PFSH: Medical History Coronary artery disease FH: cholecystectomy HTN (hypertension) Hyperlipidemia, unspecified Male erectile dysfunction, unspecified Tobacco abuse Surgical History Stented coronary artery Family History Brother CAD (coronary artery disease) Hypertension Father Family history of premature coronary artery disease Hypertension Stroke Social History Smoking and tobacco/nicotine status: current every day tobacco/nicotine user Quit status (tobacco/nicotine): has tried quititng Vitals/I&O/Wt Last Vital Signs Temp 98.6 F 02/05/23 16:56 Pulse 72 02/05/23 16:50 Resp 15 02/05/23 16:50 BP 117/64 02/05/23 16:50 Pulse Ox 92 02/05/23 16:50 O2 Del Method Nasal Cannula 02/05/23 16:50 O2 Flow Rate 2 02/05/23 16:50 02/05/23 02/05/23 02/05/23 06:59 14:59 22:59 Intake Total 50 / 50 7.975 / 57.975 Output Total 650 / 650 Balance 50 / 50 -642.025 / -592.025 Weight last 48 hrs Weight 126.831 kg Physical Exam Narrative: Patient is a middle aged obese male that is lethargic on exam. He becomes aggressive with kicking and waving arms and head with any procedural task. HEENT head is normocephalic and atraumatic pupils even equal round reactive to light and accommodation. Eye muscles appear intact. No icterus noted. Mucous membranes are moist and pink rather erythematous actually. Neck is supple no JVD carotid bruits or lymphadenopathy Heart is tachycardic no loud murmur auscultated Lungs are clear to auscultation anteriorly Abdomen is distended nontender diminished bowel sounds no rebound rigidity or guarding Singh in place draining bloody urine Extremities +2-3 pitting edema to above knees. Patient has nonpitting edema in the arms. He is generally anasarca Skin warm and dry to touch. No lesions or wounds or rash Urinary Catheter Management: Singh: Cath Placed During This Visit: yes Urinary Catheter Date of Insertion: 02/05/23 Urinary Catheter Time of Insertion: 16:56 Data 02/05/23 09:55 02/05/23 09:55 Micro: Microbiology 02/05/23 09:48 Blood Culture - Preliminary Blood SPECIMEN COLLECTED 02/05/23 09:55 Blood Culture - Preliminary Blood SPECIMEN COLLECTED A&P Assessment and plan (1) AMS (altered mental status): Secondary to hyper ammonemia; hepatic encephalopathy. (2) Hyperammonemia: Place NG tube. Lactulose 30 g every 2 hours until 3 BMs then will decrease to every 4 hours until another 3 BMs and maintain dosing at 4-6 BMs a day. Consult nutrition: Recommendations are: * Start enteral nutrition with Pivot 1.5 begin at 25 cc an hour x24 hours then advance to goal of 45 mL/h via NG Note aspirin nutrition support guidelines for hepatic encephalopathy recommend pre and pro antibiotics and oral BC AA's but the hospital here does not carry BC AA formulas. We will just make sure he is meeting his protein recommendations. We will start multivitamin once daily and lactobacillus once daily. Appreciate discussion with nutrition. (3) Encephalopathy, hepatic: Will add rifaximin to regimen. (4) Cirrhosis of liver: Appears to be from fatty liver disease. Once stable work-up can ensue for liver biopsy. Hepatitis panel was essentially negative. Hep at the surface antibody was 3.5 which is documented as low. Otherwise hep C and HIV were negative. (5) Anasarca: Currently no ascites. Patient had paracentesis last week with 4.5 L removed. Will give Lasix IV as well as spironolactone as blood pressure tolerates. Attestations Medical Necessity Statement*: Patient is acutely ill with hepatic encephalopathy due to hyperammonia EMEA this requires aggressive treatment and quick lowering of level. Coding Level of Care Code Acute Code for [facility] Diagnoses AMS (altered mental status) R41.82 Hyperammonemia E72.20 Encephalopathy, hepatic K76.82 Cirrhosis of liver K74.60 Anasarca R60.1
[2023-02-05] MEDS: lactobacillus 1 Tablet 1 TAB NG-TUBE (18:12)
--- NOTE | 2023-02-05 19:13 | PC.NURSE ---
Shift SUmmary: Patient behavior has been variable, mostly calm and resting, but interventions such as turning, brown start, and NG tube start have cause him to became very agitated and attempting to hit and bit nurses. THese behaviors and attempts to remove brown, IV, and NG tube have required sof restraints and precedex drip which is off at the time of this note. Code 10 was called while down in CT shortly after arrival to hospital. NG tube in place and we have started lactulose. Tube feedings have been started. Mental status has been variable ranging from screaming at attempting to hit staff to responsive only to painful stimuli.
[2023-02-06] VITALS (42 sets, daily range): BP systolic 102–157; BP diastolic 52–111; PULSE 71–104; RESP 13–22; TEMP 36.5–37.7; O2SAT 95–100
[2023-02-06] MEDS: lactulose oral liq 20 gm/30 mL UDC 30 GM NG-TUBE ×6 (00:42→21:58)
--- NOTE | 2023-02-06 03:14 | PC.NURSE ---
Dr. Fine was contacted about patient vomiting, He ordered for tube feeding to be paused and wait until the day doctor could asses the patient. Patient had more than three watery stools and the Ordered for his lactulose to be put on hold until the morning when the Day shift doctor can asses the patient.
[2023-02-06] MEDS: D5-NS 0.45% + KCL 20 mEq 20 MEQ/1,000 ML BAG 75 MEQ IV (03:41)
[2023-02-06 05:51] LABS: Basophils % 0.5 %; Eosinophils # 0.1 10^3/uL (0.0-0.8); Eosinophils % 0.9 %; Hematocrit 29.8 % (37-53); Lymphocytes # 1.1 10^3/uL (0.8-4.8); Mean Corpuscular HGB Conc 34.9 g/dL (30-55); Mean Corpuscular Hemoglobin 36.9 pg (27-33); Mean Corpuscular Volume 105.7 fl (82-101); Mean Platelet Volume 9.7 fL (7.4-10.4); Monocytes # 0.6 10^3/uL (0.2-0.9); Monocytes % 7.9 %; Neutrophils # 6.24 10^3/uL (1.8-7.7); Neutrophils % 77.5 %; Nucleated Red Blood Cells % 0 %; Platelet Count 100 10^3/cmm (157-399); Red Blood Count 2.82 10^6/uL (3.85-5.65); Red Cell Distribution Width 13.6 % (12.1-15.1); White Blood Count 8.06 10^3/uL (3.29-11.43)
[2023-02-06 06:12] LABS: Anion Gap 11.6 (5-19); Blood Urea Nitrogen 14 mg/dL (8-23); Calcium 8.5 mg/dL (8.5-10.5); Carbon Dioxide 24 mmol/L (22-29); Chloride 106 mmol/L (98-107); Glomerular Filtration Rate 68.3 mL/min (90-130); Glucose 184 mg/dL (65-115); Osmolality Calculated 291 mOsm/kg (285-295); Potassium 3.6 mmol/L (3.5-5.1); Sodium 138 mmol/L (136-145)
--- NOTE | 2023-02-06 08:45 | PC.NURSE ---
FADUMO hose cut off due to cutting into skin. Will confirm with doctor on rounding.
[2023-02-06] MEDS: lactobacillus 1 Tablet 1 TAB NG-TUBE ×2 (08:50→18:21)
[2023-02-06] MEDS: pantoprazole 40 mg SDV IVP (08:50)
[2023-02-06] MEDS: cefTRIAXone 2,000 MG in sodium chloride 0.9% (plus) 50 ML 100 MG IV (10:20)
[2023-02-06] MEDS: spironolactone 25 mg Tablet 50 MG PO (13:20)
[2023-02-06] MEDS: FUROsemide 10 mg/mL SDV 10mL 60 MG IVP ×2 (13:20→22:00)
[2023-02-06] MEDS: lidocaine 1% 5 ML in potassium chloride premix 100 ML 26.25 ML IV (13:21)
--- NOTE | 2023-02-06 13:36 | PM.PN ---
Subjective Subjective: Jordi Pérez is a 62 year old male who was discharged from hospital 4 days ago after a 4-day hospitalization.? gives history as patient is unable.? She states that his swelling never got better and he started to get confused and slurring his words prior to discharge.? Yesterday evening he was getting more fatigued and seemed altered again.? He would not answer questions when asked.? She tried to wake him this morning and was unable to arouse him.? She called 911.? In the emergency room the patient was significantly altered and actually somewhat belligerent and combative when trying to assess him.? He was found to have an ammonia level of 188.? He will be admitted for aggressive treatment.? He will have to be placed in the ICU for a Precedex drip in order to obtain appropriate treatment. NG tube was placed and aggressive lactulose therapy was initiated. Patient started having profuse liquid stools throughout the night. A rectal tube was inserted. 02/06/2023: Patient can wake up and converse slightly. He still very lethargic. Lactulose continued as well as rifaximin. Appreciate nutrition consult for higher protein source. Add Lasix and spironolactone for liver cirrhosis with anasarca Vitals/I&O/Wt Last Vital Signs Temp 98.6 F 02/06/23 09:07 Pulse 90 02/06/23 13:00 Resp 18 02/06/23 13:00 BP 122/71 02/06/23 13:00 Pulse Ox 98 02/06/23 13:00 O2 Del Method Nasal Cannula 02/06/23 13:00 O2 Flow Rate 2 02/06/23 13:00 02/05/23 02/06/23 02/06/23 22:59 06:59 14:59 Intake Total 206.005 / 639.994 1777.5 / 1286.505 791.25 / 791.25 Output Total 1150 / 1150 850 / 2000 Balance -943.995 / -893.995 180.5 / -713.495 791.25 / 791.25 Weight last 48 hrs Weight 135.171 kg Weight 126.831 kg Physical Exam Narrative: Patient is a middle aged obese male that is able to be awakened. Heart is regular rate and rhythm no loud murmur auscultated Lungs are clear to auscultation anteriorly Abdomen is distended mild tenderness diminished bowel sounds no rebound rigidity or guarding Singh in place draining bloody urine Extremities +2-3 pitting edema to above knees. Patient has nonpitting edema in the arms.+ anasarca Skin warm and dry to touch. No lesions or wounds or rash Urinary Catheter Management: Singh: Cath Placed During This Visit: yes Reason for Continuing Indwelling Catheter: Accurate Measurement of Urinary Output in Critically Ill Patients Urinary Catheter Date of Insertion: 02/05/23 Urinary Catheter Time of Insertion: 16:56 Data 02/06/23 05:45 02/06/23 05:45 Micro: Microbiology 02/05/23 09:48 Blood Culture - Preliminary Blood NEGATIVE TO DATE 02/05/23 09:55 Blood Culture - Preliminary Blood NEGATIVE TO DATE A&P Assessment and plan (1) AMS (altered mental status): Secondary to hyper ammonemia; hepatic encephalopathy. (2) Hyperammonemia: Maintain NG tube. Lactulose 30 g every 2 hours until 3 BMs then will decrease to every 4 hours until another 3 BMs and maintain dosing at 4-6 BMs a day. Note: ASPEN nutrition support guidelines for hepatic encephalopathy recommend pre and pro antibiotics and oral BC AA's but the hospital here does not carry BC AA formulas. We will just make sure he is meeting his protein recommendations. multivitamin once daily lactobacillus bid Greatly appreciate nutrition consult. (3) Encephalopathy, hepatic: Lactulose, rifaximin, increase protein intake, multivitamin, lactobacillus, (4) Cirrhosis of liver: Appears to be from fatty liver disease. Once stable work-up can ensue for liver biopsy. Hepatitis panel was essentially negative. Hep at the surface antibody was 3.5 which is documented as low. Otherwise hep C and HIV were negative. (5) Anasarca: Currently no ascites. Patient had paracentesis last week with 4.5 L removed. Will give Lasix IV as well as spironolactone as blood pressure tolerates. Attestations Medical Necessity Statement*: Patient is acutely ill with hepatic encephalopathy due to hyperammonia. this requires aggressive treatment and quick lowering of level. Coding Level of Care Code Acute Code for [facility] Fwd Diagnoses AMS (altered mental status) R41.82 Hyperammonemia E72.20 Encephalopathy, hepatic K76.82 Cirrhosis of liver K74.60 Anasarca R60.1
[2023-02-06] MEDS: enoxaparin 40 mg/0.4 mL Syringe SUBCUT (15:00)
--- NOTE | 2023-02-06 15:17 | PC.NUTR ---
If no signs of tube feed intolerance x24hrs, advance rate 15 ml/hr q8 until goal of 45 ml/hr. Continue 30 ml ProSource TID
[2023-02-07] VITALS (32 sets, daily range): BP systolic 117–161; BP diastolic 62–89; PULSE 78–100; RESP 12–20; TEMP 36.9–37.3; O2SAT 93–98
[2023-02-07] MEDS: lactulose oral liq 20 gm/30 mL UDC 30 GM NG-TUBE ×4 (02:31→16:11)
[2023-02-07 04:39] LABS: Basophils # 0.1 10^3/uL (0.0-0.1); Basophils % 0.6 %; Eosinophils # 0.6 10^3/uL (0.0-0.8); Eosinophils % 6.2 %; Hematocrit 32.7 % (37-53); Lymphocytes # 1.6 10^3/uL (0.8-4.8); Lymphocytes % 17.3 %; Mean Corpuscular HGB Conc 34.3 g/dL (30-55); Mean Corpuscular Hemoglobin 36.6 pg (27-33); Mean Corpuscular Volume 106.9 fl (82-101); Monocytes # 0.9 10^3/uL (0.2-0.9); Monocytes % 9.7 %; Neutrophils # 5.99 10^3/uL (1.8-7.7); Neutrophils % 65.9 %; Nucleated Red Blood Cells % 0 %; Platelet Count 116 10^3/cmm (157-399); Red Blood Count 3.06 10^6/uL (3.85-5.65); White Blood Count 9.08 10^3/uL (3.29-11.43)
[2023-02-07 04:57] LABS: Alanine Aminotransferase 30 U/L (0-41); Albumin Level 3.1 g/dL (3.5-5.2); Alkaline Phosphatase 98 U/L (40-130); Anion Gap 11.6 (5-19); Aspartate Amino Transferase 59 U/L (0-40); Blood Urea Nitrogen 13 mg/dL (8-23); Calcium 8.9 mg/dL (8.5-10.5); Carbon Dioxide 27 mmol/L (22-29); Chloride 109 mmol/L (98-107); Glomerular Filtration Rate 68.3 mL/min (90-130); Glucose 169 mg/dL (65-115); Osmolality Calculated 302 mOsm/kg (285-295); Potassium 3.6 mmol/L (3.5-5.1); Sodium 144 mmol/L (136-145); Total Bilirubin 3.4 mg/dL (0.15-1.2); Total Protein 6.1 g/dL (6.6-8.7)
[2023-02-07 05:03] LABS: Ammonia 31 umol/L (16-60)
[2023-02-07] MEDS: potassium chloride oral liq 20 mEq/15 mL UDC 40 MEQ PO (07:52)
[2023-02-07] MEDS: pantoprazole 40 mg SDV IVP (07:52)
[2023-02-07] MEDS: spironolactone 25 mg Tablet 50 MG PO (07:52)
[2023-02-07] MEDS: lactobacillus 1 Tablet 1 TAB NG-TUBE ×2 (07:53→18:04)
[2023-02-07] MEDS: FUROsemide 10 mg/mL SDV 10mL 60 MG IVP ×2 (10:35→23:34)
[2023-02-07] MEDS: cefTRIAXone 2,000 MG in sodium chloride 0.9% (plus) 50 ML 100 MG IV (10:36)
--- NOTE | 2023-02-07 14:55 | PC.NURSE ---
VTACH Patient had 12 beat run non sustained V Tach, patient asymptomatic.
--- NOTE | 2023-02-07 15:45 | P.PN_ITS ---
Subjective Subjective: Jordi Pérez is a 62 year old male who was discharged from hospital 4 days ago after a 4-day hospitalization.? gives history as patient is unable.? She states that his swelling never got better and he started to get confused and slurring his words prior to discharge.? Yesterday evening he was getting more fatigued and seemed altered again.? He would not answer questions when asked.? She tried to wake him this morning and was unable to arouse him.? She called 911.? In the emergency room the patient was significantly altered and actually somewhat belligerent and combative when trying to assess him.? He was found to have an ammonia level of 188.? He will be admitted for aggressive treatment.? He will have to be placed in the ICU for a Precedex drip in order to obtain appropriate treatment. NG tube was placed and aggressive lactulose therapy was initiated.? Patient started having profuse liquid stools throughout the night.? A rectal tube was inserted. 02/06/2023: Patient can wake up and converse slightly.? He still very lethargic.? Lactulose continued as well as rifaximin.? Appreciate nutrition consult for higher protein source.? Add Lasix and spironolactone for liver cirrhosis with anasarca 02/07/2023. Patient is much more alert today. Multiple family members at the bedside. He does not recall coming to the emergency room. He has no complaints this morning. He is asking to eat. Vitals/I&O/Wt Last Vital Signs Temp 98.5 F 02/07/23 10:00 Pulse 78 02/07/23 14:00 Resp 13 02/07/23 14:00 BP 157/84 02/07/23 14:00 Pulse Ox 95 02/07/23 14:00 O2 Del Method Room Air 02/07/23 14:00 O2 Flow Rate 2 02/07/23 10:30 02/07/23 02/07/23 02/07/23 06:59 14:59 22:59 Intake Total 40 / 1205.25 540 / 540 Output Total 2275 / 4075 600 / 600 Balance -2235 / -2869.75 -60 / -60 Weight last 48 hrs Weight 125.191 kg Weight 135.171 kg Physical Exam Narrative: Patient is a middle aged obese male who is awake and talking to his when I walk in his room. Heart is regular rate and rhythm no loud murmur auscultated Lungs are clear to auscultation anteriorly Abdomen is distended mild tenderness diminished bowel sounds no rebound rigidity or guarding Singh in place draining nonbloody urine Extremities +2 pitting edema to above knees. Patient has nonpitting edema in the arms.+ anasarca. Overall improved. Urinary Catheter Management: Singh: Cath Placed During This Visit: yes Reason for Continuing Indwelling Catheter: Accurate Measurement of Urinary Output in Critically Ill Patients Urinary Catheter Date of Insertion: 02/05/23 Urinary Catheter Time of Insertion: 16:56 Data 02/07/23 04:15 02/07/23 04:15 A&P Assessment and plan (1) AMS (altered mental status): Secondary to hyper ammonemia; hepatic encephalopathy. Resolving. (2) Hyperammonemia: Normal ammonia level today at 33, down from 188. We will try feeding and if no vomiting will DC NG tube and continue lactulose orally. Goal is 3 BMs a day Continue * multivitamin once daily * lactobacillus bid * Supplemental protein Greatly appreciate nutrition consult. (3) Encephalopathy, hepatic: Lactulose, rifaximin, increase protein intake, multivitamin, lactobacillus, Resolving (4) Cirrhosis of liver: Appears to be from fatty liver disease. Once stable work-up can ensue for liver biopsy. Hepatitis panel was essentially negative. Hep at the surface antibody was 3.5 which is documented as low. Otherwise hep C and HIV were negative. (5) Anasarca: Currently no ascites. Patient had paracentesis last week with 4.5 L removed. Continue IV Lasix and spironolactone. Patient has good urine output. -4 L thus far. Plan If patient able to eat and take NG tube out will transfer to the floor. Attestations Medical Necessity Statement*: Patient's care will continue to cross 2 midnights for hepatic failure hepatic e ncephalopathy and anasarca Coding Level of Care Code Acute Code for [facility] Fwd Diagnoses AMS (altered mental status) R41.82 Hyperammonemia E72.20 Encephalopathy, hepatic K76.82 Cirrhosis of liver K74.60 Anasarca R60.1
[2023-02-07] MEDS: enoxaparin 40 mg/0.4 mL Syringe SUBCUT (16:10)
[2023-02-08] VITALS (10 sets, daily range): BP systolic 113–151; BP diastolic 47–79; PULSE 71–97; RESP 11–19; TEMP 36.4–36.8; O2SAT 91–98
--- NOTE | 2023-02-08 00:16 | PC.NURSE ---
Patient assisted onto bedpan. Had liquid green stool.
--- NOTE | 2023-02-08 03:00 | PC.NURSE ---
Reported off to Michaelle BERNARDO.
[2023-02-08 04:31] LABS: Basophils # 0.1 10^3/uL (0.0-0.1); Basophils % 0.8 %; Eosinophils # 0.6 10^3/uL (0.0-0.8); Eosinophils % 8.5 %; Hematocrit 31.3 % (37-53); Lymphocytes # 1.7 10^3/uL (0.8-4.8); Mean Corpuscular HGB Conc 33.5 g/dL (30-55); Mean Corpuscular Hemoglobin 36.6 pg (27-33); Mean Corpuscular Volume 109.1 fl (82-101); Mean Platelet Volume 9.8 fL (7.4-10.4); Monocytes # 0.6 10^3/uL (0.2-0.9); Monocytes % 8.8 %; Neutrophils # 3.61 10^3/uL (1.8-7.7); Neutrophils % 55.6 %; Nucleated Red Blood Cells % 0 %; Platelet Count 103 10^3/cmm (157-399); Red Blood Count 2.87 10^6/uL (3.85-5.65); White Blood Count 6.49 10^3/uL (3.29-11.43)
[2023-02-08 05:04] LABS: Alanine Aminotransferase 27 U/L (0-41); Albumin Level 3.2 g/dL (3.5-5.2); Alkaline Phosphatase 72 U/L (40-130); Anion Gap 11.4 (5-19); Aspartate Amino Transferase 47 U/L (0-40); Blood Urea Nitrogen 17 mg/dL (8-23); Calcium 9.3 mg/dL (8.5-10.5); Carbon Dioxide 27 mmol/L (22-29); Chloride 107 mmol/L (98-107); Globulin 2.7 g/dL (1.3-4.6); Glomerular Filtration Rate 76.2 mL/min (90-130); Glucose 125 mg/dL (65-115); Osmolality Calculated 297 mOsm/kg (285-295); Potassium 3.4 mmol/L (3.5-5.1); Sodium 142 mmol/L (136-145); Total Bilirubin 3.1 mg/dL (0.15-1.2); Total Protein 5.9 g/dL (6.6-8.7)
[2023-02-08] MEDS: potassium chloride oral liq 20 mEq/15 mL UDC 40 MEQ PO (08:36)
[2023-02-08] MEDS: lactulose oral liq 20 gm/30 mL UDC 30 GM PO ×2 (08:36→17:00)
[2023-02-08] MEDS: lactobacillus 1 Tablet 1 TAB NG-TUBE ×2 (08:36→17:00)
[2023-02-08] MEDS: spironolactone 25 mg Tablet 50 MG PO (08:37)
[2023-02-08 09:42] LABS: Estmated Average Glucose 103; Hemoglobin A1C 5.2 % (4.0-6.0)
[2023-02-08] MEDS: pantoprazole 40 mg SDV IVP (09:49)
[2023-02-08 09:51] LABS: Magnesium 1.6 mg/dL (1.7-2.3)
[2023-02-08] MEDS: FUROsemide 10 mg/mL SDV 10mL 60 MG IVP ×2 (10:57→22:02)
[2023-02-08] MEDS: cefTRIAXone 2,000 MG in sodium chloride 0.9% (plus) 50 ML 100 MG IV (11:11)
--- NOTE | 2023-02-08 13:44 | P.PN_ITS ---
Subjective Subjective: Jordi Pérez is a 62 year old male who was discharged from hospital 4 days ago after a 4-day hospitalization.? gives history as patient is unable.? She states that his swelling never got better and he started to get confused and slurring his words prior to discharge.? Yesterday evening he was getting more fatigued and seemed altered again.? He would not answer questions when asked.? She tried to wake him this morning and was unable to arouse him.? She called 911.? In the emergency room the patient was significantly altered and actually somewhat belligerent and combative when trying to assess him.? He was found to have an ammonia level of 188.? He will be admitted for aggressive treatment.? He will have to be placed in the ICU for a Precedex drip in order to obtain appropriate treatment. NG tube was placed and aggressive lactulose therapy was initiated.? Patient started having profuse liquid stools throughout the night.? A rectal tube was inserted. 02/06/2023: Patient can wake up and converse slightly.? He still very lethargic.? Lactulose continued as well as rifaximin.? Appreciate nutrition consult for higher protein source.? Add Lasix and spironolactone for liver cirrhosis with anasarca 02/07/2023. Patient is much more alert today. Multiple family members at the bedside. He does not recall coming to the emergency room. He has no complaints this morning. He is asking to eat. Transferred out of ICU 02/08/2023. Patient continues to improve states that he is close to baseline mentally. He still not all that hungry and gets full easily. He is negative 7 L total. Vitals/I&O/Wt Last Vital Signs Temp 97.7 F 02/08/23 12:00 Pulse 91 02/08/23 12:00 Resp 18 02/08/23 12:00 BP 144/77 02/08/23 12:00 Pulse Ox 95 02/08/23 12:00 O2 Del Method Room Air 02/08/23 05:51 O2 Flow Rate 93 02/08/23 02:00 02/07/23 02/08/23 02/08/23 22:59 06:59 14:59 Intake Total 940 / 1480 0 / 1480 290 / 290 Output Total 2200 / 2800 1500 / 4300 Balance -1260 / -1320 -1500 / -2820 290 / 290 Weight last 48 hrs Weight 122.47 kg Weight 125.191 kg Physical Exam Narrative: Patient is a middle aged obese male who is awake and alert and appears close to baseline. Heart is regular rate and rhythm no loud murmur auscultated Lungs are clear to auscultation anteriorly Abdomen is distended mild tenderness diminished bowel sounds no rebound rigidity or guarding Singh in place draining nonbloody urine Extremities +2 pitting edema to above knees. Patient has nonpitting edema in the arms. Overall anasarca improving. I can see that Lasix edema in the upper extremities. Urinary Catheter Management: Singh: Cath Placed During This Visit: yes Reason for Continuing Indwelling Catheter: Accurate Measurement of Urinary Output in Critically Ill Patients Urinary Catheter Date of Insertion: 02/05/23 Urinary Catheter Time of Insertion: 16:56 Data 02/08/23 03:20 02/08/23 Unknown A&P Assessment and plan (1) AMS (altered mental status): Secondary to hyper ammonemia; hepatic encephalopathy. Resolving. Close to baseline. (2) Hyperammonemia: Resolved now. Goal: 3 BMs a day Lactulose 30 cc twice daily. May hold second dose if already had 3 BMs. Continue * rifaximin, * multivitamin once daily * lactobacillus bid * Supplemental protein Greatly appreciate nutrition consult. (3) Encephalopathy, hepatic: Lactulose, rifaximin, increase protein intake, multivitamin, lactobacillus, Resolving (4) Cirrhosis of liver: Appears to be from fatty liver disease. Once stable work-up can ensue for liver biopsy. Recommend liver specialist and biopsy at that facility. Hepatitis panel was essentially negative. Hep at the surface antibody was 3.5 which is documented as low. Otherwise hep C and HIV were negative. (5) Anasarca: Currently no significant ascites. Patient had paracentesis last week with 4.5 L removed. Negative for SBP Continue IV Lasix and spironolactone. Patient has good urine output. -7 L total Plan Increase activity. PT OT consults. Case management for likely SNF placement Attestations Medical Necessity Statement*: Continue hospitalization for hepatic failure hepatic encephalopathy and anasarca requiring IV Lasix. Patient has been bedridden for 3 days will now increase activity with PT OT. Coding Level of Care Code Acute Code for [facility] Fwd Diagnoses AMS (altered mental status) R41.82 Hyperammonemia E72.20 Encephalopathy, hepatic K76.82 Cirrhosis of liver K74.60 Anasarca R60.1
[2023-02-08] MEDS: magnesium sulfate premix 2 GM/50 ML PIGGYBACK IV (14:33)
[2023-02-08] MEDS: enoxaparin 40 mg/0.4 mL Syringe SUBCUT (14:35)
[2023-02-08] MEDS: potassium chloride ER 20 mEq Tablet PO (14:35)
[2023-02-08] MEDS: cefdinir 300 MG CAPSULE PO (20:48)
[2023-02-09 04:00] VITALS: BP 117/65; PULSE 86; RESP 14; TEMP 36.4; O2SAT 90
[2023-02-09 04:34] LABS: Hematocrit 28.1 % (37-53)
[2023-02-09 04:51] LABS: Alanine Aminotransferase 26 U/L (0-41); Albumin Level 2.8 g/dL (3.5-5.2); Alkaline Phosphatase 65 U/L (40-130); Anion Gap 12.6 (5-19); Aspartate Amino Transferase 49 U/L (0-40); Blood Urea Nitrogen 17 mg/dL (8-23); Calcium 8.5 mg/dL (8.5-10.5); Carbon Dioxide 27 mmol/L (22-29); Chloride 103 mmol/L (98-107); Globulin 2.7 g/dL (1.3-4.6); Glomerular Filtration Rate 76.2 mL/min (90-130); Glucose 92 mg/dL (65-115); Osmolality Calculated 289 mOsm/kg (285-295); Potassium 3.6 mmol/L (3.5-5.1); Sodium 139 mmol/L (136-145); Total Bilirubin 3.1 mg/dL (0.15-1.2); Total Protein 5.5 g/dL (6.6-8.7)
[2023-02-09 04:54] LABS: Magnesium 1.6 mg/dL (1.7-2.3); Phosphorus 2.8 mg/dL (2.5-4.5)
[2023-02-09] MEDS: pantoprazole DR 40 mg Tablet PO (05:09)
[2023-02-09 08:00] VITALS: BP 123/73; PULSE 81; RESP 17; TEMP 37.2; O2SAT 92
[2023-02-09] MEDS: potassium chloride oral liq 20 mEq/15 mL UDC 40 MEQ PO (08:18)
[2023-02-09] MEDS: lactulose oral liq 20 gm/30 mL UDC 30 GM PO (08:19)
[2023-02-09] MEDS: cefdinir 300 MG CAPSULE PO ×2 (08:21→20:04)
[2023-02-09] MEDS: lactobacillus 1 Tablet 1 TAB NG-TUBE ×2 (08:21→17:18)
[2023-02-09] MEDS: spironolactone 25 mg Tablet 50 MG PO (08:21)
[2023-02-09] MEDS: FUROsemide 10 mg/mL SDV 10mL 60 MG IVP ×2 (11:48→22:54)
[2023-02-09 12:00] VITALS: BP 145/87; PULSE 95; RESP 18; TEMP 36.7; O2SAT 96
[2023-02-09 14:11] LABS: Iron 99 ug/dL (59-158)
[2023-02-09 14:27] LABS: Vitamin B12 1643 pg/mL (232-1245)
[2023-02-09 14:31] LABS: Total Iron Binding Capacity 100.99999 mcg/dl; Unsaturated Iron Binding < 2 ug/dL (112-347)
[2023-02-09] MEDS: enoxaparin 40 mg/0.4 mL Syringe SUBCUT (15:11)
[2023-02-09 16:00] VITALS: BP 133/70; PULSE 85; RESP 17; TEMP 36.8; O2SAT 96
--- NOTE | 2023-02-09 16:32 | P.PN_ITS ---
Subjective Subjective: Hospital course, labs appreciated. Today morning patient seen getting out of the bathroom. Denies any nausea, vomiting, headache. States he is feeling a lot better. Hemodynamically stable. Blood pressures have been fairly stable off midodrine. Blood work appreciated for no CBC, CMP showing stable creatinine and no electrolyte abnormalities Vitals/I&O/Wt Last Vital Signs Temp 98.0 F 02/09/23 12:00 Pulse 95 02/09/23 12:00 Resp 18 02/09/23 12:00 BP 145/87 02/09/23 12:00 Pulse Ox 96 02/09/23 12:00 O2 Del Method Room Air 02/09/23 04:00 O2 Flow Rate 93 02/08/23 02:00 02/09/23 02/09/23 02/09/23 06:59 14:59 22:59 Intake Total 600 / 600 Output Total 1200 / 2500 Balance -1200 / -1920.000 600 / 600 Weight last 48 hrs Weight 121.818 kg Weight 122.47 kg Physical Exam Narrative: Patient is a middle aged obese male who is awake and alert and appears close to baseline. Heart is regular rate and rhythm no loud murmur auscultated Lungs are clear to auscultation anteriorly Abdomen is distended mild tenderness diminished bowel sounds no rebound rigidity or guarding Singh in place draining nonbloody urine Extremities +2 pitting edema to above knees. Patient has nonpitting edema in the arms. Overall anasarca improving. I can see that Lasix edema in the upper extremities. Urinary Catheter Management: Singh: Cath Placed During This Visit: yes, but has since been removed by the nurse Reason for Continuing Indwelling Catheter: Decision to DC Catheter Urinary Catheter Date of Insertion: 02/05/23 Urinary Catheter Time of Insertion: 16:56 Date Urinary Catheter Removed: 02/09/23 Time Urinary Catheter Discontinued: 10:25 Data 02/09/23 04:08 02/09/23 04:08 A&P Assessment and plan (1) AMS (altered mental status): In setting of hepatic encephalopathy. Resolved. Continue with lactulose and rifampin. Appreciate recent ammonia levels. Check vitamin B12 and folate levels. (2) Hyperammonemia: Resolved now. Goal: 3 BMs a day Lactulose 30 cc twice daily. May hold second dose if already had 3 BMs. Continue * rifaximin, * multivitamin once daily * lactobacillus bid * Supplemental protein Greatly appreciate nutrition consult. (3) Encephalopathy, hepatic: Lactulose, rifaximin, increase protein intake, multivitamin, lactobacillus, Resolving (4) Cirrhosis of liver: Appears to be from fatty liver disease. Once stable work-up can ensue for liver biopsy. Recommend liver specialist and biopsy at that facility. Hepatitis panel negative, HIV negative. Blood pressure is better now. Start on propranolol 10 mg twice daily. Monitor blood pressures. (5) Anasarca: Currently no significant ascites. Patient had paracentesis on recent previous admission for 4.5 L. Continue with Lasix and spironolactone. Hemodynamically stable. Plan Full code Regular diet with high-protein Protonix for PUD prophylaxis Lovenox for DVT prophylaxis Discharge planning: Plan to discharge to home with caregiver. There was a consideration for possible discharge to SNF but patient is declining as he is self-pay and cannot afford. Overall clinically patient has improved drastically and is back to his baseline, mobile without any restrictions. Patient would be safe to discharge home with caregiver. Case management alerted. Attestations Medical Necessity Statement*: Requires hospitalization for management of resolving hepatic encephalopathy by safe discharge planning. Diagnoses AMS (altered mental status) R41.82 Hyperammonemia E72.20 Encephalopathy, hepatic K76.82 Cirrhosis of liver K74.60 Anasarca R60.1
[2023-02-09] MEDS: propranolol 20 mg Tablet 10 MG PO ×2 (17:18→20:04)
[2023-02-09 19:48] VITALS: BP 121/64; PULSE 78; RESP 14; TEMP 36.7; O2SAT 98
[2023-02-09 23:08] VITALS: BP 149/72; PULSE 79; RESP 17; TEMP 36.4; O2SAT 92
[2023-02-10 03:30] VITALS: BP 100/57; PULSE 71; RESP 18; TEMP 36.4; O2SAT 92
[2023-02-10] MEDS: pantoprazole DR 40 mg Tablet PO ×2 (05:57→09:19)
[2023-02-10 06:14] LABS: Basophils # 0.1 10^3/uL (0.0-0.1); Basophils % 0.8 %; Eosinophils # 0.6 10^3/uL (0.0-0.8); Eosinophils % 8.9 %; Hematocrit 28.3 % (37-53); Lymphocytes # 1.5 10^3/uL (0.8-4.8); Lymphocytes % 23.8 %; Mean Corpuscular HGB Conc 33.9 g/dL (30-55); Mean Corpuscular Hemoglobin 36.2 pg (27-33); Mean Corpuscular Volume 106.8 fl (82-101); Monocytes # 0.7 10^3/uL (0.2-0.9); Monocytes % 10.4 %; Neutrophils # 3.47 10^3/uL (1.8-7.7); Neutrophils % 55.5 %; Nucleated Red Blood Cells % 0 %; Platelet Count 106 10^3/cmm (157-399); Red Blood Count 2.65 10^6/uL (3.85-5.65); Red Cell Distribution Width 13.4 % (12.1-15.1); White Blood Count 6.26 10^3/uL (3.29-11.43)
[2023-02-10 06:41] LABS: Alanine Aminotransferase 30 U/L (0-41); Albumin Level 2.9 g/dL (3.5-5.2); Alkaline Phosphatase 63 U/L (40-130); Anion Gap 11.9 (5-19); Aspartate Amino Transferase 60 U/L (0-40); Blood Urea Nitrogen 20 mg/dL (8-23); Calcium 8.7 mg/dL (8.5-10.5); Carbon Dioxide 26 mmol/L (22-29); Chloride 98 mmol/L (98-107); Globulin 2.5 g/dL (1.3-4.6); Glomerular Filtration Rate 76.2 mL/min (90-130); Glucose 133 mg/dL (65-115); Osmolality Calculated 279 mOsm/kg (285-295); Potassium 3.9 mmol/L (3.5-5.1); Sodium 132 mmol/L (136-145); Total Bilirubin 2.9 mg/dL (0.15-1.2); Total Protein 5.4 g/dL (6.6-8.7)
[2023-02-10 06:42] LABS: Chol HDL Ratio 2.52 mg/dL (1.0-5.00); Cholesterol 63 mg/dL (0-200); HDL Cholesterol 25 mg/dL (60-100); LDL Cholesterol Calculated 28 mg/dL (50-129); Triglycerides 48 mg/dL (0-150); VLDL Cholestrol Calculation 10 mg/dL (0-30)
[2023-02-10 06:54] LABS: Folate Level 8.5 ng/mL (4.5-32.2)
[2023-02-10 07:20] VITALS: BP 109/57; PULSE 69; RESP 18; TEMP 36.8; O2SAT 94
--- NOTE | 2023-02-10 09:12 | PM.DCS ---
Discharge Providers Date of Admission: 02/05/23 11:50 Date of Discharge: February 10, 2023 Attending Provider at Admission: Norbert Darling DO Attending Provider at Discharge: Davey Jensen MD Primary Care Provider: Fausto Poe MD Diagnoses at Discharge Discharge Diagnosis (1) AMS (altered mental status): Status: Acute (2) Hyperammonemia: Status: Acute (3) Encephalopathy, hepatic: Status: Acute (4) Cirrhosis of liver: Status: Acute (5) Anasarca: Status: Acute Reason for Visit Reason for Visit: ams Brief History: History as per HPI: Jordi Pérez is a 62 year old male who was discharged from hospital 4 days ago after a 4-day hospitalization.? gives history as patient is unable.? She states that his swelling never got better and he started to get confused and slurring his words prior to discharge.? Yesterday evening he was getting more fatigued and seemed altered again.? He would not answer questions when asked.? She tried to wake him this morning and was unable to arouse him.? She called 911.? In the emergency room the patient was significantly altered and actually somewhat belligerent and combative when trying to assess him.? He was found to have an ammonia level of 188.? He will be admitted for aggressive treatment.? He will have to be placed in the ICU for a Precedex drip in order to obtain appropriate treatment. Hospital Course Hospital Course Patient was admitted to the hospital further evaluation and management of altered mental status in setting of hepatic encephalopathy. He was admitted to the ICU for further evaluation and management. He was started on aggressive treatment with lactulose through NG tube and rifampin. Patient was also found to have anasarca for which he was started on diuretic therapy. With lactulose and rifampin patient continued to have multiple bowel movements with which his ammonia levels improved and his mentation also resolved. Patient is back to his baseline for last 48 hours. He has been discharged in hemodynamically stable condition on oral lactulose 30 g twice daily. He is advised to take extra dose of lactulose and maintain at least 2-3 soft bowel movements per day. He is also to take 40 mg of Lasix twice daily along with spironolactone 50 mg daily. He switched his blood pressures daily at home and maintain a blood pressure diary and follow-up with his primary care provider within next 10 days for further adjustment of antihypertensives. Patient is advised to maintain fluid restriction of less than 1500 cc. Physical Exam Narrative: Patient is a middle aged obese male who is awake and alert and appears close to baseline. Heart is regular rate and rhythm no loud murmur auscultated Lungs are clear to auscultation anteriorly Abdomen is distended mild tenderness diminished bowel sounds no rebound rigidity or guarding Singh in place draining nonbloody urine Extremities +2 pitting edema to above knees. Patient has nonpitting edema in the arms. Overall anasarca improving. I can see that Lasix edema in the upper extremities. Urinary Catheter Management: Singh: Cath Placed During This Visit: yes, but has since been removed by the nurse Reason for Continuing Indwelling Catheter: Decision to DC Catheter Urinary Catheter Date of Insertion: 02/05/23 Urinary Catheter Time of Insertion: 16:56 Date Urinary Catheter Removed: 02/09/23 Time Urinary Catheter Discontinued: 10:25 Discharge Data Studies Completed and Pending Completed Studies During Hospitalization Category Date Time Status CT head wo con* [id number] Stat Cat Scan 02/05/23 09:36 Completed XR chest 1V portable [id number] Routine Exams 02/05/23 15:45 Completed XR chest 1V portable [id number] Urgent Exams 02/05/23 09:36 Completed US abdomen lmt fluid [id number] Stat Ultrasound 02/05/23 09:45 Completed Pending at discharge Category Date Time Status Blood Culture Stat Lab 02/05/23 09:48 Results Laboratory Results WBC 6.26 10^3/uL (3.29-11.43) 02/10/23 05:41 RBC 2.65 10^6/uL (3.85-5.65) L 02/10/23 05:41 Hgb 9.60 g/dL (11.27-16.99) L 02/10/23 05:41 Hct 28.3 % (37-53) L 02/10/23 05:41 MCV 106.8 fl (82-101) H 02/10/23 05:41 MCH 36.2 pg (27-33) H 02/10/23 05:41 MCHC 33.9 g/dL (30-55) 02/10/23 05:41 RDW 13.4 % (12.1-15.1) 02/10/23 05:41 Plt Count 106 10^3/cmm (157-399) L 02/10/23 05:41 MPV 10.0 fL (7.4-10.4) 02/10/23 05:41 Neut % (Auto) 55.5 % 02/10/23 05:41 Lymph % (Auto) 23.8 % 02/10/23 05:41 [place] % (Auto) 10.4 % 02/10/23 05:41 Eos % (Auto) 8.9 % 02/10/23 05:41 Baso % (Auto) 0.8 % 02/10/23 05:41 Neut # (Auto) 3.47 10^3/uL (1.8-7.7) 02/10/23 05:41 Lymph # (Auto) 1.5 10^3/uL (0.8-4.8) 02/10/23 05:41 [place] # (Auto) 0.7 10^3/uL (0.2-0.9) 02/10/23 05:41 Eos # (Auto) 0.6 10^3/uL (0.0-0.8) 02/10/23 05:41 Baso # (Auto) 0.1 10^3/uL (0.0-0.1) 02/10/23 05:41 Nucleated RBC % (auto) 0 % 02/10/23 05:41 Nucleated RBCs # 0.0 /100WBC 02/10/23 05:41 PT 21.50 SECONDS (12.1-14.9) H 02/05/23 09:55 INR 1.80 (0.8-1.2) H 02/05/23 09:55 APTT 39.0 SECONDS (23.9-36.7) H 02/05/23 09:55 Specimen Type Arterial 02/05/23 09:48 Sample Site Radial, left 02/05/23 09:48 ABG pH 7.52 (7.35-7.45) H 02/05/23 09:48 ABG pCO2 29.8 mmHg (35-45) L 02/05/23 09:48 ABG pO2 59.9 mmHg (80.0-100.0) L 02/05/23 09:48 ABG HCO3 24.1 mmol/L (22-26) 02/05/23 09:48 ABG O2 Saturation 93.4 02/05/23 09:48 ABG Base Excess 1.9 mmol/L (-2.0-2.0) 02/05/23 09:48 Kevin Test Pos 02/05/23 09:48 A-a O2 Gradient 6.8 mmHg (5-10) 02/05/23 09:48 Hematocrit 38.4 % (42-52) L 02/05/23 09:48 Hgb O2 Saturation 91.0 % (95-100) L 02/05/23 09:48 Carboxyhemoglobin 1.9 %THgb (0.4-20.1) 02/05/23 09:48 Methemoglobin 0.6 % (0.4-1.5) 02/05/23 09:48 Total Hemoglobin 12.5 g/dL (14-18) L 02/05/23 09:48 Sodium 136.0 mmol/L (131-143) 02/05/23 09:48 Potassium 3.5 mmol/L (3.5-5.0) 02/05/23 09:48 Glucose 138.0 mg/dL (70-115) H 02/05/23 09:48 Ionized Calcium 1.1 mmol/L (1.1-1.4) 02/05/23 09:48 O2 Delivery Device Room air 02/05/23 09:48 FiO2 21.0 % 02/05/23 09:48 Radio Interference Trouble Shooter ID Cak 02/05/23 09:48 Sodium 132 mmol/L (136-145) L 02/10/23 05:41 Potassium 3.9 mmol/L (3.5-5.1) 02/10/23 05:41 Chloride 98 mmol/L (98-107) 02/10/23 05:41 Carbon Dioxide 26 mmol/L (22-29) 02/10/23 05:41 Anion Gap 11.9 (5-19) 02/10/23 05:41 BUN 20 mg/dL (8-23) 02/10/23 05:41 Creatinine 1.0 mg/dL (0.7-1.2) 02/10/23 05:41 GFR Calculation 76.2 mL/min (90-130) L 02/10/23 05:41 Glucose 133 mg/dL (65-115) H 02/10/23 05:41 Estimat Average Glucose 103 02/08/23 03:20 Hemoglobin A1c 5.2 % (4.0-6.0) 02/08/23 03:20 Calculated Osmolality 279 mOsm/kg (285-295) L 02/10/23 05:41 Lactic Acid 3.0 mmol/L (0.5-2.2) H 02/05/23 09:55 Lactic Acid (Sepsis) 4.5 mmol/L (0.5-2.2) H* 02/05/23 13:32 Calcium 8.7 mg/dL (8.5-10.5) 02/10/23 05:41 Phosphorus 2.8 mg/dL (2.5-4.5) 02/09/23 04:08 Magnesium 1.6 mg/dL (1.7-2.3) L 02/09/23 04:08 Iron 99 ug/dL (59-158) 02/09/23 04:08 TIBC 100.95780 mcg/dl 02/09/23 04:08 % Saturation 98.0 % (20-50) H 02/09/23 04:08 Unsat Iron Binding < 2 ug/dL (112-347) L 02/09/23 04:08 Total Bilirubin 2.9 mg/dL (0.15-1.2) H 02/10/23 05:41 AST 60 U/L (0-40) H 02/10/23 05:41 ALT 30 U/L (0-41) 02/10/23 05:41 Alkaline Phosphatase 63 U/L (40-130) 02/10/23 05:41 Ammonia 31 umol/L (16-60) 02/07/23 04:15 Creatine Kinase 69 U/L (39-308) 02/05/23 09:55 Troponin T Baseline 23 ng/L (0-15) H 02/05/23 09:55 Troponin T 120 Minute 24.86 ng/L (0-15) H 02/05/23 11:48 Delta Troponin T 1.86 ABS# (0-10) 02/05/23 11:48 C-Reactive Protein 15.8 mg/L (0.0-4.9) H 02/05/23 09:55 NT-Pro-B Natriuret Pep 612 pg/mL (0-125) H 02/05/23 09:55 Total Protein 5.4 g/dL (6.6-8.7) L 02/10/23 05:41 Albumin 2.9 g/dL (3.5-5.2) L 02/10/23 05:41 Globulin 2.5 g/dL (1.3-4.6) 02/10/23 05:41 Triglycerides 48 mg/dL (0-150) 02/10/23 05:41 Cholesterol 63 mg/dL (0-200) 02/10/23 05:41 LDL Cholesterol, Calc 28 mg/dL (50-129) L 02/10/23 05:41 Total VLDL Cholesterol 10 mg/dL (0-30) 02/10/23 05:41 HDL Cholesterol 25 mg/dL (60-100) L 02/10/23 05:41 Cholesterol/HDL Ratio 2.52 mg/dL (1.0-5.00) 02/10/23 05:41 Vitamin B12 1643 pg/mL (232-1245) H 02/09/23 04:08 Folate 8.5 ng/mL (4.5-32.2) 02/10/23 05:41 Urine Color Yellow (Yellow) 02/05/23 13:45 Urine Appearance Clear (CLEAR) 02/05/23 13:45 Urine pH 8 (5-7) H 02/05/23 13:45 Ur Specific [place] 1.010 (1.005-1.030) 02/05/23 13:45 Urine Protein Neg (Negative) 02/05/23 13:45 Urine Glucose (UA) Norm (Normal) 02/05/23 13:45 Urine Ketones Negative (Negative) 02/05/23 13:45 Urine Blood Trace (Negative) H 02/05/23 13:45 Urine Nitrate Negative (Negative) 02/05/23 13:45 Urine Bilirubin Neg (Negative) 02/05/23 13:45 Prot Sulfosalicylic Acd Negative (Negative) 02/05/23 13:45 Urine Urobilinogen 1 mg/dL (Negative) H 02/05/23 13:45 Ur Leukocyte Esterase Negative (Negative) 02/05/23 13:45 Urine RBC 0-4 /hpf (0-2) H 02/05/23 13:45 Urine WBC 0-4 /hpf (0-5) H 02/05/23 13:45 Ur Squamous Epith Cells Rare /hpf (0-5) 02/05/23 13:45 Amorphous Sediment Not Reportable 02/05/23 13:45 Urine Bacteria Trace /hpf (NONE) 02/05/23 13:45 Urine Opiates Screen Negative ng/mL (Negative) 02/05/23 13:45 Ur Barbiturates Screen Negative ng/mL (Negative) 02/05/23 13:45 Ur Phencyclidine Scrn Negative ng/mL (Negative) 02/05/23 13:45 Ur Amphetamines Screen Negative ng/mL (Negative) 02/05/23 13:45 U Benzodiazepines Scrn Negative ng/mL (Negative) 02/05/23 13:45 Urine Cocaine Screen Negative ng/mL (Negative) 02/05/23 13:45 U Marijuana (THC) Screen Negative ng/mL (Negative) 02/05/23 13:45 Vitals Last Vital Signs Temp 98.2 F 02/10/23 07:20 Pulse 69 02/10/23 07:20 Resp 18 02/10/23 07:20 BP 109/57 02/10/23 07:20 Pulse Ox 94 02/10/23 07:20 O2 Del Method Room Air 02/10/23 07:20 O2 Flow Rate 93 02/08/23 02:00 Discharge Plan Discharge Patient Disposition: Home Condition: Stable Prescriptions: New cefdinir 300 mg Capsule 300 mg PO Q12H Qty: 8 0RF Xifaxan 550 mg Tablet 550 mg ng-tube BID Qty: 30 0RF spironolactone 25 mg Tablet 50 mg PO DAILY 30 Days Qty: 60 0RF potassium chloride 20 mEq/15 mL Liquid 20 meq PO DAILY 30 Days Qty: 1200 0RF propranolol 20 mg Tablet 10 mg PO TID 30 Days Qty: 45 0RF lactulose 20 gram/30 mL Solution 30 g PO BID 30 Days Qty: 2700 0RF Continued aspirin 81 mg Tablet,Delayed Release (Dr/Ec) 81 mg PO DAILY simvastatin 40 mg tablet 40 mg PO QPM pantoprazole 40 mg Tablet,Delayed Release (Dr/Ec) 40 mg PO DAILY 30 Days Qty: 30 0RF Changed Lasix 40 mg tablet 40 mg PO BID Qty: 30 0RF midodrine 5 mg Tablet 5 mg PO TID PRN (Reason: sbp less than 100mmhg) 30 Days Qty: 90 0RF Discharge Orders: Discharge Order (Routine); Ordered 02/10/23 Ordered By: Davey Jensen Referrals: Fausto Poe MD [Primary Care Provider] - 02/16/23 10:30 am Discharge Diet: Cardiac Discharge Activity: Resume usual activity and Increase activity as tolerated Patient Instructions: Hyponatremia (ED), Benzodiazepine Use Disorder (ED), Dementia (ED), Non-diabetic Hypoglycemia (ED), Hypoglycemia in a Person with Diabetes (ED), Concussion (ED), Alcohol Intoxication (ED), Subarachnoid Hemorrhage (GEN), Altered Mental Status (ED), Opioid Safety Activity Restrictions/Additional Instructions: Continue medications are restarted. Please take oral lactulose 30 g twice daily. He is advised to take extra dose of lactulose and maintain at least 2-3 soft bowel movements per day. He is also to take 40 mg of Lasix twice daily along with spironolactone 50 mg daily. He is to check his blood pressures daily at home and maintain a blood pressure diary and follow-up with his primary care provider within next 10 days for further adjustment of antihypertensives. Patient is advised to maintain fluid restriction of less than 1500 cc. Discharge Attestations Time Spent in Discharge Care*: greater than 30 min Specific Discharge Activities: educating patient, educating and/or supporting family/caregiver, discussing with pcp/other providers, discussing with test case developer/social workers/dc planners, documenting/other paperwork and evaluating patient/reviewing data Status at Discharge: Cognitive status at discharge: cognitively intact, Behavioral status at discharge: cooperative, Functional status at discharge: independent ambulation, Overall status at discharge: patient is back to baseline Quality Metrics Clinical Quality Measures [ No reported AMI, CVA or VTE this stay] Coding Level of Care Code 60242 Total time (in minutes) for Discharge: 60 Diagnoses AMS (altered mental status) R41.82 Hyperammonemia E72.20 Encephalopathy, hepatic K76.82 Cirrhosis of liver K74.60 Anasarca R60.1
[2023-02-10] MEDS: propranolol 20 mg Tablet 10 MG PO (09:17)
[2023-02-10] MEDS: spironolactone 25 mg Tablet 50 MG PO (09:18)
[2023-02-10] MEDS: cefdinir 300 MG CAPSULE PO (09:18)
[2023-02-10] MEDS: lactobacillus 1 Tablet 1 TAB NG-TUBE (09:18)
[2023-02-10] MEDS: potassium chloride oral liq 20 mEq/15 mL UDC 40 MEQ PO (09:19)
[2023-02-10] MEDS: lactulose oral liq 20 gm/30 mL UDC 30 GM PO (09:20)
--- NOTE | 2023-02-10 10:31 | PC.NURSE ---
D/C IV from right forearm. Applied gauze secured with coban. no S&S of infection noted. pt tolerated well. Robina ALICEA / Deana Yao BSN RN
== END 2023-02-10 10:50 | disposition home or self-care (01) | DRG 442 ==
LOC: ER 10:03 → ICU 12:10 → MEDSURG 02-08 04:40
PROVIDERS: Internal Medicine; Physician Assistant; Admitting Provider Internal Medicine; Emergency Provider Family Medicine; PCP Family Medicine; Visit Provider Student in an Organized Health Care Education/Training Program
DX: K76.82 Hepatic encephalopathy (principal); E72.20 Disorder of urea cycle metabolism, unspecified; I25.10 Atherosclerotic heart disease of native coronary artery without angina pectoris; Z95.5 Presence of coronary angioplasty implant and graft; I10 Essential (primary) hypertension; E78.5 Hyperlipidemia, unspecified; N52.9 Male erectile dysfunction, unspecified; F17.210 Nicotine dependence, cigarettes, uncomplicated; K76.0 Fatty (change of) liver, not elsewhere classified; K74.60 Unspecified cirrhosis of liver
CPT/HCPCS: 36415; 36600; 49083; 51702; 70450; 71045; 76705; 80048; 80051; 80053; 80061; 80306; 81001; 82140; 82330; 82550; 82607; 82746; 82805; 83036; 83540; 83550; 83605; 83735; 83880; 84100; 84484; 85014; 85018; 85025; 85610; 85730; 86140; 87040; 93005; 96365; 96372; 96375; 96376; 97110; 97162; 97530; 99291; C9113; J0696; J1650; J1940; J2060; J3475; J3480

== ENCOUNTER 2023-03-01 12:15 | Inpatient (IN) | payer SELFPAY ==
[2023-03-01] VITALS (7 sets, daily range): BP systolic 130–148; BP diastolic 69–101; PULSE 51–76; RESP 16–18; TEMP 36.3–36.6; O2SAT 97–99; BMI 38.8
--- NOTE | 2023-03-01 12:38 | ED_ITS ---
HPI - Altered Mental Status General: Chief Complaint: Weakness Stated Complaint: Sluring speech, head pain, N/V, Neck pain Time Seen by Provider: 03/01/23 12:38 History of Present Illness: 62-year-old male presents emergency department with his . Both the patient and the states that they feel like he is having worsening confusion over the previous 1 week. She also states he has had increased swelling and generalized anasarca worse over the previous 3 days. Patient does have a history of coronary artery disease as well as cirrhosis of the liver he states that he does take lactulose daily but his feels that he has become more confused and presented with his slurred speech yesterday to her. She states he is also had an increase in weakness worse in the past 24 hours. Review of Systems General: Reports: 10 or more systems reviewed and unremarkable except in HPI and below Const: Reports: fatigue and malaise Eyes: Reports: yellow eyes Card: Reports: edema and dyspnea on exertion GI: Reports: abdominal pain Skin/Breast: Reports: jaundice Neuro: Reports: Slurred speech present PFSH ED PFSH: Medical History Coronary artery disease FH: cholecystectomy HTN (hypertension) Hyperlipidemia, unspecified Male erectile dysfunction, unspecified Tobacco abuse Surgical History Stented coronary artery Family History Brother CAD (coronary artery disease) Hypertension Father Family history of premature coronary artery disease Hypertension Stroke Social History Smoking and tobacco/nicotine status: current every day tobacco/nicotine user Quit status (tobacco/nicotine): has tried quititng Physical Exam Narrative: Constitutional: the patient appears well nourished and with normal development. Vital signs reviewed as documented. Mildly ill appearing HENMT: Normocephalic, atraumatic. Extermal ears with normal appearance without drainage. Nose without drainage, normal appearance. Mucus membranes moist. Neck is supple, No jugular venous distension, trachea is midline, no appreciable carotid bruits. No lymphadenopathy. No meningeal signs. Flexion, extension and lateral rotation is without pain. Eyes: Pupils are equal, round, reactive to light and accommodation. Positive for scleral icterus. Extra-ocular movement are intact. Thorax is symmetrical and with equal rise and fall with respirations. Resp: Lungs are clear to auscultation. No wheezes, rales, crackles or ronchi at present. Cardio: Regular rate and rhythm. Positive S1, S2. No appreciable murmurs, rubs or gallops. Anasarca present GI: Abdominal exam reveals normal bowel sounds to all quadrants. No organomegaly. No obvious palpable masses noted. No hepatomegally appreciated. Distended, tight Firm, mild tender to palpation. Extremity: Extremities are edematous and both femoral and pedal pulses are 2+ and equal bilaterally. Moves all extremities well, sensation in all extremities. Neuro: Alert and oriented x4, person, place, time and situation. Cranial nerves II through XII are grossly intact, there is no focal neurological deficits that I can appreciate at present. Motor strength in the upper and lower extremities are equal and bilateral 5/5. Psych: Cooperative, calm, normal thought process, appropriate judgment. Skin: No lesions, rashes. No gross abnormalities noted. Jaundiced, Back: Symmetrical, no obvious deformity, No CVA tenderness Course Vital Signs: Vital signs: Vital Signs Temperature 98.6 F 03/02/23 07:41 Pulse Rate 70 03/02/23 15:07 Respiratory Rate 16 03/02/23 15:07 Blood Pressure 118/71 03/02/23 15:07 Pulse Oximetry 95 03/02/23 15:07 Oxygen Delivery Me thod Room Air 03/02/23 11:16 MDM - Altered Mental Status Medical Decision Making Physical exam completed and documented, I will obtain a CBC, CMP, ammonia level, cardiac enzymes and a CT scan to evaluate for stroke type symptoms. I suspect most likely this is hepatic encephalopathy given his progression of his cirrhosis. I will provide him lactulose here in the emergency department and given his advancing cirrhosis we will contact the hospitalist for admission Medical Records I reviewed the patient's medical records. Lab Data I reviewed the patient's lab results. 03/02/23 03:36 03/02/23 03:36 Laboratory Results WBC 7.04 10^3/uL (3.29-11.43) 03/01/23 12:36 RBC 3.36 10^6/uL (3.85-5.65) L 03/01/23 12:36 Hgb 12.30 g/dL (11.27-16.99) 03/01/23 12:36 Hct 36.6 % (37-53) L 03/01/23 12:36 MCV 108.9 fl (82-101) H 03/01/23 12:36 MCH 36.6 pg (27-33) H 03/01/23 12:36 MCHC 33.6 g/dL (30-55) 03/01/23 12:36 RDW 13.8 % (12.1-15.1) 03/01/23 12:36 Plt Count 141 10^3/cmm (157-399) L 03/01/23 12:36 MPV 10.3 fL (7.4-10.4) 03/01/23 12:36 Neut % (Auto) 72.1 % 03/01/23 12:36 Lymph % (Auto) 17.6 % 03/01/23 12:36 [place] % (Auto) 7.5 % 03/01/23 12:36 Eos % (Auto) 2.1 % 03/01/23 12:36 Baso % (Auto) 0.4 % 03/01/23 12:36 Neut # (Auto) 5.07 10^3/uL (1.8-7.7) 03/01/23 12:36 Lymph # (Auto) 1.2 10^3/uL (0.8-4.8) 03/01/23 12:36 [place] # (Auto) 0.5 10^3/uL (0.2-0.9) 03/01/23 12:36 Eos # (Auto) 0.2 10^3/uL (0.0-0.8) 03/01/23 12:36 Baso # (Auto) 0.0 10^3/uL (0.0-0.1) 03/01/23 12:36 Nucleated RBC % (auto) 0 % 03/01/23 12:36 Nucleated RBCs # 0.0 /100WBC 03/01/23 12:36 PT 20.60 SECONDS (12.1-14.9) H 03/01/23 13:07 INR 1.70 (0.8-1.2) H 03/01/23 13:07 APTT 41.7 SECONDS (23.9-36.7) H 03/01/23 13:07 Sodium 135 mmol/L (136-145) L 03/01/23 12:36 Potassium 4.9 mmol/L (3.5-5.1) 03/01/23 12:36 Chloride 100 mmol/L (98-107) 03/01/23 12:36 Carbon Dioxide 23 mmol/L (22-29) 03/01/23 12:36 Anion Gap 16.9 (5-19) 03/01/23 12:36 BUN 19 mg/dL (8-23) 03/01/23 12:36 Creatinine 1.4 mg/dL (0.7-1.2) H 03/01/23 12:36 GFR Calculation 51.7 mL/min (90-130) L 03/01/23 12:36 Glucose 141 mg/dL (65-115) H 03/01/23 12:36 POC Glucose 145 mg/dL (70-110) H 03/01/23 12:54 Calculated Osmolality 285 mOsm/kg (285-295) 03/01/23 12:36 Lactic Acid 1.6 mmol/L (0.5-2.2) 03/01/23 12:36 Calcium 9.3 mg/dL (8.5-10.5) 03/01/23 12:36 Magnesium 1.7 mg/dL (1.7-2.3) 03/01/23 12:36 Total Bilirubin 4.3 mg/dL (0.15-1.2) H 03/01/23 12:36 AST 66 U/L (0-40) H 03/01/23 12:36 ALT 39 U/L (0-41) 03/01/23 12:36 Alkaline Phosphatase 90 U/L (40-130) 03/01/23 12:36 Ammonia 118 umol/L (16-60) H 03/01/23 12:36 Total Protein 6.9 g/dL (6.6-8.7) 03/01/23 12:36 Albumin 3.0 g/dL (3.5-5.2) L 03/01/23 12:36 Globulin 3.9 g/dL (1.3-4.6) 03/01/23 12:36 Lipase 53 U/L (13-60) 03/01/23 12:36 Vitamin B12 1817 pg/mL (232-1245) H 03/01/23 12:36 Procalcitonin 0.16 ng/mL (0-0.5) 03/01/23 12:36 TSH 4.33 uIU/mL (0.27-4.20) H 03/01/23 12:36 Urine Color Yellow (Yellow) 03/01/23 13:01 Urine Appearance Cloudy (CLEAR) A 03/01/23 13:01 Urine pH 5 (5-7) 03/01/23 13:01 Ur Specific [place] 1.015 (1.005-1.030) 03/01/23 13:01 Urine Protein Trace (Negative) 03/01/23 13:01 Urine Glucose (UA) Norm (Normal) 03/01/23 13:01 Urine Ketones Negative (Negative) 03/01/23 13:01 Urine Blood 2+ (Negative) H 03/01/23 13:01 Urine Nitrate Negative (Negative) 03/01/23 13:01 Urine Bilirubin Neg (Negative) 03/01/23 13:01 Urine Urobilinogen 1 mg/dL (Negative) H 03/01/23 13:01 Ur Leukocyte Esterase 2+ (Negative) H 03/01/23 13:01 Urine RBC Rare /hpf (0-2) 03/01/23 13:01 Urine WBC 15-25 /hpf (0-5) H 03/01/23 13:01 Ur Squamous Epith Cells 5-10 /hpf (0-5) H 03/01/23 13:01 Amorphous Sediment Not Reportable 03/01/23 13:01 Urine Bacteria 2+ /hpf (NONE) H 03/01/23 13:01 Urine Mucus Trace /hpf 03/01/23 13:01 Urine Opiates Screen Negative ng/mL (Negative) 03/01/23 13:01 Ur Barbiturates Screen Negative ng/mL (Negative) 03/01/23 13:01 Ur Phencyclidine Scrn Negative ng/mL (Negative) 03/01/23 13:01 Ur Amphetamines Screen Negative ng/mL (Negative) 03/01/23 13:01 U Benzodiazepines Scrn Negative ng/mL (Negative) 03/01/23 13:01 Urine Cocaine Screen Negative ng/mL (Negative) 03/01/23 13:01 U Marijuana (THC) Screen Negative ng/mL (Negative) 03/01/23 13:01 All radiology interpretation(s) finalized by discharge Discharge Plan Discharge Patient Disposition: Admitted As Inpatient Admit Provider: Espinoza Chung Clinical Impression: Encephalopathy, hepatic, Acute UTI Condition: Stable Discharge Diet: Usual diet Coding Level of Care Code ED Security Project Manager for [facility] [place]
[2023-03-01 12:49] LABS: Basophils % 0.4 %; Eosinophils # 0.2 10^3/uL (0.0-0.8); Eosinophils % 2.1 %; Hematocrit 36.6 % (37-53); Lymphocytes # 1.2 10^3/uL (0.8-4.8); Lymphocytes % 17.6 %; Mean Corpuscular HGB Conc 33.6 g/dL (30-55); Mean Corpuscular Hemoglobin 36.6 pg (27-33); Mean Corpuscular Volume 108.9 fl (82-101); Mean Platelet Volume 10.3 fL (7.4-10.4); Monocytes # 0.5 10^3/uL (0.2-0.9); Monocytes % 7.5 %; Neutrophils # 5.07 10^3/uL (1.8-7.7); Neutrophils % 72.1 %; Nucleated Red Blood Cells % 0 %; Platelet Count 141 10^3/cmm (157-399); Red Blood Count 3.36 10^6/uL (3.85-5.65); Red Cell Distribution Width 13.8 % (12.1-15.1); White Blood Count 7.04 10^3/uL (3.29-11.43)
[2023-03-01 13:03] LABS: Lactic Sepsis W/Reflex 1.6 mmol/L (0.5-2.2)
[2023-03-01 13:04] LABS: Alanine Aminotransferase 39 U/L (0-41); Alkaline Phosphatase 90 U/L (40-130); Aspartate Amino Transferase 66 U/L (0-40); Blood Urea Nitrogen 19 mg/dL (8-23); Calcium 9.3 mg/dL (8.5-10.5); Carbon Dioxide 23 mmol/L (22-29); Chloride 100 mmol/L (98-107); Globulin 3.9 g/dL (1.3-4.6); Glomerular Filtration Rate 51.7 mL/min (90-130); Glucose 141 mg/dL (65-115); Lipase 53 U/L (13-60); Magnesium 1.7 mg/dL (1.7-2.3); Osmolality Calculated 285 mOsm/kg (285-295); Sodium 135 mmol/L (136-145); Total Bilirubin 4.3 mg/dL (0.15-1.2); Total Protein 6.9 g/dL (6.6-8.7)
[2023-03-01 13:08] LABS: Anion Gap 16.9 (5-19); Potassium 4.9 mmol/L (3.5-5.1)
[2023-03-01 13:09] LABS: Ammonia 118 umol/L (16-60)
[2023-03-01 13:11] LABS: Procalcitonin 0.16 ng/mL (0-0.5)
[2023-03-01 13:25] LABS: Add Urine Microscopic? YES; Bilirubin Urine Neg (Negative); Blood Urine 2+ (Negative); Glucose Urine UA Norm (Normal); Ketones Urine Negative (Negative); Leukocyte Esterase Urine 2+ (Negative); Nitrate Urine Negative (Negative); Protein Urine Trace (Negative); Specific Gravity, Urine 1.015 (1.005-1.030); Urine Appearance Cloudy (CLEAR); Urine Color Yellow (Yellow); Urobilinogen Urine 1 mg/dL (Negative); pH Urine 5 (5-7)
[2023-03-01 13:27] LABS: Bacteria Urine 2+ /hpf; RBC Urine RARE /hpf (0-2); WBC Urine 15-25 /hpf (0-5)
[2023-03-01 13:27] LABS: Partial Thromboplastin Time 41.7 SECONDS (23.9-36.7)
[2023-03-01 13:28] LABS: Mucus Urine TRACE /hpf
[2023-03-01 13:29] LABS: Add Urine Culture? Yes
[2023-03-01 13:32] LABS: Amphetamines Screen Urine Negative (Negative); Barbiturates Screen Urine Negative (Negative); Benzodiazepines Screen Urine Negative (Negative); Cocaine Screen Urine Negative (Negative); Opiate Screen Urine Negative (Negative); PCP Screen Urine Negative (Negative); THC Screen Urine Negative (Negative)
[2023-03-01] MEDS: lactulose oral liq 20 gm/30 mL UDC 60 GM PO (14:59)
[2023-03-01] MEDS: cefTRIAXone 1,000 MG in sodium chloride 0.9% (plus) 50 ML 100 MG IV (16:03)
--- NOTE | 2023-03-01 16:10 | P.HP_ITS ---
Providers/Chief Complaint Primary Care Provider: Fausto Poe MD Chief Complaint: Sluring speech, head pain, N/V, Neck pain History of Present Illness Jordi Pérez is a 62 year old male past medical history of CAD, preserved e jection fraction who has been having increasing generalized anasarca over the last 3 to 4 months.? Patient states that he started to develop lower extremity edema at least 2 to 3 years ago, used to follow with cardiology who put him on diuretics furosemide 40 mg twice daily and metolazone has had 2 admissions in the past for hepatic encephalopathy when he was given lactulose, no signs of stroke, presented today with chief complaint of confusion and slurring of speech Patient is stating that he was taking lactulose 45 mL on daily basis his convinced him to go to the hospital because of worsening confusion, stating that he has not made an appointment with the [facility] liver specialist yet. Etiology of liver cirrhosis is unknown. No history of upper GI bleed. No history of hepatitis B C or significant alcohol use. No history of IV drug abuse. Patient is stating that he has had diagnosis of fatty liver in the past. . On last admission he was given spironolactone, Lasix, lactulose and was advised to use fluid restricted diet Review of Systems Const: Reports: body aches and fatigue; Denies: fever(s) Eyes: Denies: change in vision ENMT: Denies: throat pain Card: Reports: swelling of feet/ankles; Denies: chest pain Resp: Denies: dyspnea GI: Reports: nausea Medications/Allergies Home Medications Medication Instructions Recorded Confirmed Last Taken Type aspirin 81 mg tablet,delayed 81 mg PO QAM 01/28/23 03/01/23 03/01/23 History release simvastatin 40 mg tablet 40 mg PO QPM 01/28/23 03/01/23 02/28/23 History furosemide 40 mg tablet (Lasix) 40 mg PO BID #30 tabs 02/10/23 03/01/23 03/01/23 Rx midodrine 5 mg tablet 5 mg PO TID PRN sbp less than 02/10/23 03/01/23 03/01/23 Rx 100mmhg 30 days #90 tabs propranolol 20 mg tablet 10 mg PO TID 30 days #45 tabs 02/10/23 03/01/23 03/01/23 Rx rifaximin 550 mg tablet (Xifaxan) 550 mg ng-tube BID #30 tabs 02/10/23 03/01/23 02/25/23 Rx lactulose 20 gram/30 mL oral 30 g PO QAM 03/01/23 03/01/23 03/01/23 History solution threw all meds up th pantoprazole 40 mg tablet,delayed 40 mg PO QAM 03/01/23 03/01/23 03/01/23 History release potassium chloride 20 mEq/15 mL 20 meq PO QPM 03/01/23 03/01/23 02/28/23 History oral liquid spironolactone 25 mg tablet 25 mg PO DAILY 03/01/23 03/01/23 Unknown History Allergies Allergy/AdvReac Type Severity Reaction Status Date / Time bee pollen Allergy ALGY-Swell Verified 03/01/23 12:41 Lip/Tongue/Throat PFSH Acute PFSH: Medical History Coronary artery disease FH: cholecystectomy HTN (hypertension) Hyperlipidemia, unspecified Male erectile dysfunction, unspecified Tobacco abuse Surgical History Stented coronary artery Family History Brother CAD (coronary artery disease) Hypertension Father Family history of premature coronary artery disease Hypertension Stroke Social History Smoking and tobacco/nicotine status: current every day tobacco/nicotine user Quit status (tobacco/nicotine): has tried quititng Vitals/I&O/Wt Last Vital Signs Temp 97.9 F 03/01/23 12:34 Pulse 56 L 03/01/23 15:27 Resp 16 03/01/23 13:41 BP 145/75 03/01/23 15:27 Pulse Ox 99 03/01/23 15:27 O2 Del Method Room Air 03/01/23 15:27 Weight last 48 hrs Weight 119.295 kg Physical Exam Narrative: Anasarca Lower extremity edema Awake and alert Asterixis negative GCS 15 Nonfocal neuro exam Hemodynamic stable Currently on room air Pleasant and cooperative No slurring of speech noted during my evaluation Patient is asking appropriate questions to me Data 11/19/23 12:36 03/01/23 12:36 A&P Assessment and plan (1) Acute UTI: (2) AMS (altered mental status): (3) Hyperammonemia: (4) Encephalopathy, hepatic: (5) Lymphedema: (6) Cirrhosis of liver: (7) Anasarca: Plan Decompensated liver cirrhosis Hepatic encephalopathy High ammonia Start lactulose rifaximin Low-sodium diet Patient ideally needs liver biopsy to know the exact etiology of liver cirrhosis Rule out REGAN No history of significant congestive heart failure echo showed preserved ejection fraction, patient is nondiabetic Denies regular use of IV drug abuse, does not drink alcohol Does have coagulopathy Hemoglobin is stable Due to recurrent admissions for hepatic encephalopathy might be considered good candidate for TIPS procedure Does have ascites I will start him on ceftriaxone 2 g prophylactic regimen for SBP Afebrile Continue lactulose and rifaximin Continue Lasix spironolactone monitor kidney function There was concern for hepatorenal syndrome in the past as well Sinus bradycardia: I will hold propanolol for tonight patient has portal hyperte nsion Patient is full code Lives with his DVT prophylaxis added monitor platelets closely Attestations Medical Necessity Statement*: Anticipating discharge within 48 hours Coding Level of Care Code Acute Code for Chg Fwd Diagnoses Acute UTI N39.0 AMS (altered mental status) R41.82 Hyperammonemia E72.20 Encephalopathy, hepatic K76.82 Lymphedema I89.0 Cirrhosis of liver K74.60 Anasarca R60.1
--- NOTE | 2023-03-01 16:15 | PC.PHAR ---
pts verified pts medications-pts states pt took am meds but then threw up after taking-pts states the pt rn out of xifaxan 550mg bid filled 02/10/23 15d/s from hospitalist pts states the pcp gave new rx but states they cant afford it states they are waiting to get approved for insurance and gomez pascal is too much-rx written on 02/10/23 spironolactone 25mg take 2 tabs 50mg daily ext med history shows [facility] 25mg daily on 02/10/23 30d/s pts states she is unsure if the pt is taking [facility] not open on sundays to verify if medication was picked up-
[2023-03-01 17:17] LABS: Glucose Point of Care 145 mg/dL (70-110)
[2023-03-01] MEDS: lactulose oral liq 20 gm/30 mL UDC PO (17:37)
[2023-03-01 17:55] LABS: Thyroid Stimulating Hormone 4.33 uIU/mL (0.27-4.20); Vitamin B12 1817 pg/mL (232-1245)
--- NOTE | 2023-03-01 18:02 | ECG_ITS ---
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 Measurements Intervals [place] Rate: 51 P: 24 PA: 160 QRS: 14 QRSD: 97 T: 5 QT: 431 QTc: 399 Interpretive Statements SINUS BRADYCARDIA Compared to ECG 02/05/2023 11:47:45 Sinus rhythm no longer present T-wave abnormality no longer present Electronically Signed On 03-01-2023 22:07:54 [employer] HANDLER by Garrett Prater M.D. [id number]
[2023-03-01] MEDS: phytonadione (ADULT) 10 mg/mL Ampule 1 mL SUBCUT (21:06)
[2023-03-02] VITALS: BP 103/56; PULSE 69; RESP 17; TEMP 36.6; O2SAT 91
[2023-03-02] MEDS: lactulose oral liq 20 gm/30 mL UDC PO ×4 (00:47→13:31)
[2023-03-02 04:00] VITALS: BP 113/55; PULSE 66; RESP 17; TEMP 37.4; O2SAT 91
[2023-03-02 04:01] LABS: Basophils # 0.1 10^3/uL (0.0-0.1); Basophils % 0.8 %; Eosinophils # 0.3 10^3/uL (0.0-0.8); Eosinophils % 3.8 %; Hematocrit 30.6 % (37-53); Lymphocytes # 1.3 10^3/uL (0.8-4.8); Lymphocytes % 20.2 %; Mean Corpuscular HGB Conc 34.6 g/dL (30-55); Mean Corpuscular Hemoglobin 36.8 pg (27-33); Mean Corpuscular Volume 106.3 fl (82-101); Mean Platelet Volume 10.2 fL (7.4-10.4); Monocytes # 0.8 10^3/uL (0.2-0.9); Monocytes % 12.7 %; Neutrophils # 4.08 10^3/uL (1.8-7.7); Neutrophils % 62.2 %; Nucleated Red Blood Cells % 0 %; Platelet Count 117 10^3/cmm (157-399); Red Blood Count 2.88 10^6/uL (3.85-5.65); Red Cell Distribution Width 13.7 % (12.1-15.1); White Blood Count 6.55 10^3/uL (3.29-11.43)
[2023-03-02 04:07] LABS: Platelet Count 115 10^3/cmm (157-399)
[2023-03-02 04:32] LABS: INR 1.87 (0.8-1.2)
[2023-03-02 04:33] LABS: Partial Thromboplastin Time 43.5 SECONDS (23.9-36.7)
[2023-03-02 04:38] LABS: Fibrinogen 140 mg/dL (174-498)
[2023-03-02 04:43] LABS: Alanine Aminotransferase 33 U/L (0-41); Albumin Level 2.6 g/dL (3.5-5.2); Alkaline Phosphatase 76 U/L (40-130); Anion Gap 14.8 (5-19); Aspartate Amino Transferase 53 U/L (0-40); Blood Urea Nitrogen 19 mg/dL (8-23); Calcium 8.8 mg/dL (8.5-10.5); Carbon Dioxide 23 mmol/L (22-29); Chloride 103 mmol/L (98-107); Globulin 3.1 g/dL (1.3-4.6); Glomerular Filtration Rate 56.3 mL/min (90-130); Glucose 133 mg/dL (65-115); Osmolality Calculated 288 mOsm/kg (285-295); Potassium 3.8 mmol/L (3.5-5.1); Sodium 137 mmol/L (136-145); Total Bilirubin 3.3 mg/dL (0.15-1.2); Total Protein 5.7 g/dL (6.6-8.7)
[2023-03-02 04:54] LABS: C Reactive Protein 9.8 mg/L (0.0-4.9); Magnesium 1.8 mg/dL (1.7-2.3); Phosphorus 3.6 mg/dL (2.5-4.5)
[2023-03-02 07:41] VITALS: BP 105/59; PULSE 65; RESP 15; TEMP 37; O2SAT 93
[2023-03-02] MEDS: spironolactone 25 mg Tablet 50 MG PO (09:03)
[2023-03-02] MEDS: cefTRIAXone 2,000 MG in sodium chloride 0.9% (plus) 50 ML 100 MG IV (09:03)
[2023-03-02] MEDS: FUROsemide 40 mg Tablet 20 MG PO (09:03)
[2023-03-02 11:16] VITALS: BP 118/71; PULSE 70; RESP 16; O2SAT 95
--- NOTE | 2023-03-02 13:25 | P.DS_ITS ---
Discharge Providers Date of Admission: 03/01/23 15:42 Date of Discharge: March 02, 2023 Attending Provider at Admission: Espinoza Chung MD Attending Provider at Discharge: Alecia Pickard MD Primary Care Provider: Fausto Poe MD Diagnoses at Discharge Discharge Diagnosis (1) Acute UTI: Status: Acute (2) AMS (altered mental status): Status: Acute (3) Hyperammonemia: Status: Acute (4) Encephalopathy, hepatic: Status: Acute (5) Lymphedema: Status: Acute (6) Cirrhosis of liver: Status: Acute (7) Anasarca: Status: Acute Reason for Visit Reason for Visit: Sluring speech, head pain, N/V, Neck pain Hospital Course Hospital Course Patient was admitted for hepatic encephalopathy.? He says he ran out of his rifaximin.? He is alert oriented x3 able to answer all questions.? at bedside.? They said they have been waiting for a referral to [facility].? His PCP is currently working on this.? Urine culture shows Streptococcus species.? Sensitivities are pending.? Patient was also ordered a CT-guided biopsy of liver during this hospital stay however as he was on aspirin radiology suggested that they cannot do it in the hospital and would like to do it as an outpatient.? I discussed the above with the patient but patient stated that he does not want a biopsy at our hospital anymore and would prefer to do it at [facility] says that is where he will be pursuing his treatment.? Patient's mental status is back to baseline.? Patient's and patient both did shared decision making and we will discharge patient home today with follow-up with his PCP on March 04 so that the referral to [facility] can be coordinated and outpatient biopsy can be ordered.? Patient will be getting meds to beds and getting a refill on his medications at time of discharge.? His diuretic regimen was adjusted as well.? Propanolol was held at discharge due to his blood pressure being borderline low.? He will follow-up with his PCP.? Patient and both demonstrate understanding and will be discharged home in stable condition. Physical Exam Narrative: Anasarca Lower extremity edema Awake and alert Asterixis negative GCS 15 Nonfocal neuro exam Hemodynamic stable Currently on room air Pleasant and cooperative No slurring of speech noted during my evaluation Patient is asking appropriate questions to me mental status at baseline AOx3 Discharge Data Studies Completed and Pending Pending at discharge Category Date Time Status Urine Culture Stat Lab 03/01/23 13:01 Results Laboratory Results WBC 6.55 10^3/uL (3.29-11.43) 03/02/23 03:36 RBC 2.88 10^6/uL (3.85-5.65) L 03/02/23 03:36 Hgb 10.60 g/dL (11.27-16.99) L 03/02/23 03:36 Hct 30.6 % (37-53) L 03/02/23 03:36 MCV 106.3 fl (82-101) H 03/02/23 03:36 MCH 36.8 pg (27-33) H 03/02/23 03:36 MCHC 34.6 g/dL (30-55) 03/02/23 03:36 RDW 13.7 % (12.1-15.1) 03/02/23 03:36 Plt Count 115 10^3/cmm (157-399) L 03/02/23 03:36 Plt Count 117 10^3/cmm (157-399) L 03/02/23 03:36 MPV 10.2 fL (7.4-10.4) 03/02/23 03:36 Neut % (Auto) 62.2 % 03/02/23 03:36 Lymph % (Auto) 20.2 % 03/02/23 03:36 [place] % (Auto) 12.7 % 03/02/23 03:36 Eos % (Auto) 3.8 % 03/02/23 03:36 Baso % (Auto) 0.8 % 03/02/23 03:36 Neut # (Auto) 4.08 10^3/uL (1.8-7.7) 03/02/23 03:36 Lymph # (Auto) 1.3 10^3/uL (0.8-4.8) 03/02/23 03:36 [place] # (Auto) 0.8 10^3/uL (0.2-0.9) 03/02/23 03:36 Eos # (Auto) 0.3 10^3/uL (0.0-0.8) 03/02/23 03:36 Baso # (Auto) 0.1 10^3/uL (0.0-0.1) 03/02/23 03:36 Nucleated RBC % (auto) 0 % 03/02/23 03:36 Nucleated RBCs # 0.0 /100WBC 03/02/23 03:36 PT 22.20 SECONDS (12.1-14.9) H 03/02/23 03:36 INR 1.87 (0.8-1.2) H 03/02/23 03:36 APTT 43.5 SECONDS (23.9-36.7) H 03/02/23 03:36 Fibrinogen 140 mg/dL (174-498) L 03/02/23 03:36 Sodium 137 mmol/L (136-145) 03/02/23 03:36 Potassium 3.8 mmol/L (3.5-5.1) 03/02/23 03:36 Chloride 103 mmol/L (98-107) 03/02/23 03:36 Carbon Dioxide 23 mmol/L (22-29) 03/02/23 03:36 Anion Gap 14.8 (5-19) 03/02/23 03:36 BUN 19 mg/dL (8-23) 03/02/23 03:36 Creatinine 1.3 mg/dL (0.7-1.2) H 03/02/23 03:36 GFR Calculation 56.3 mL/min (90-130) L 03/02/23 03:36 Glucose 133 mg/dL (65-115) H 03/02/23 03:36 POC Glucose 145 mg/dL (70-110) H 03/01/23 12:54 Calculated Osmolality 288 mOsm/kg (285-295) 03/02/23 03:36 Lactic Acid 1.6 mmol/L (0.5-2.2) 03/01/23 12:36 Calcium 8.8 mg/dL (8.5-10.5) 03/02/23 03:36 Phosphorus 3.6 mg/dL (2.5-4.5) 03/02/23 03:36 Magnesium 1.8 mg/dL (1.7-2.3) 03/02/23 03:36 Total Bilirubin 3.3 mg/dL (0.15-1.2) H 03/02/23 03:36 AST 53 U/L (0-40) H 03/02/23 03:36 ALT 33 U/L (0-41) 03/02/23 03:36 Alkaline Phosphatase 76 U/L (40-130) 03/02/23 03:36 Ammonia 118 umol/L (16-60) H 03/01/23 12:36 C-Reactive Protein 9.8 mg/L (0.0-4.9) H 03/02/23 03:36 Total Protein 5.7 g/dL (6.6-8.7) L 03/02/23 03:36 Albumin 2.6 g/dL (3.5-5.2) L 03/02/23 03:36 Globulin 3.1 g/dL (1.3-4.6) 03/02/23 03:36 Lipase 53 U/L (13-60) 03/01/23 12:36 Vitamin B12 1817 pg/mL (232-1245) H 03/01/23 12:36 Procalcitonin 0.16 ng/mL (0-0.5) 03/01/23 12:36 TSH 4.33 uIU/mL (0.27-4.20) H 03/01/23 12:36 Urine Color Yellow (Yellow) 03/01/23 13:01 Urine Appearance Cloudy (CLEAR) A 03/01/23 13:01 Urine pH 5 (5-7) 03/01/23 13:01 Ur Specific [place] 1.015 (1.005-1.030) 03/01/23 13:01 Urine Protein Trace (Negative) 03/01/23 13:01 Urine Glucose (UA) Norm (Normal) 03/01/23 13:01 Urine Ketones Negative (Negative) 03/01/23 13:01 Urine Blood 2+ (Negative) H 03/01/23 13:01 Urine Nitrate Negative (Negative) 03/01/23 13:01 Urine Bilirubin Neg (Negative) 03/01/23 13:01 Urine Urobilinogen 1 mg/dL (Negative) H 03/01/23 13:01 Ur Leukocyte Esterase 2+ (Negative) H 03/01/23 13:01 Urine RBC Rare /hpf (0-2) 03/01/23 13:01 Urine WBC 15-25 /hpf (0-5) H 03/01/23 13:01 Ur Squamous Epith Cells 5-10 /hpf (0-5) H 03/01/23 13:01 Amorphous Sediment Not Reportable 03/01/23 13:01 Urine Bacteria 2+ /hpf (NONE) H 03/01/23 13:01 Urine Mucus Trace /hpf 03/01/23 13:01 Urine Opiates Screen Negative ng/mL (Negative) 03/01/23 13:01 Ur Barbiturates Screen Negative ng/mL (Negative) 03/01/23 13:01 Ur Phencyclidine Scrn Negative ng/mL (Negative) 03/01/23 13:01 Ur Amphetamines Screen Negative ng/mL (Negative) 03/01/23 13:01 U Benzodiazepines Scrn Negative ng/mL (Negative) 03/01/23 13:01 Urine Cocaine Screen Negative ng/mL (Negative) 03/01/23 13:01 U Marijuana (THC) Screen Negative ng/mL (Negative) 03/01/23 13:01 Vitals Last Vital Signs Temp 98.6 F 03/02/23 07:41 Pulse 70 03/02/23 11:16 Resp 16 03/02/23 11:16 BP 118/71 03/02/23 11:16 Pulse Ox 95 03/02/23 11:16 O2 Del Method Room Air 03/02/23 11:16 Discharge Plan Discharge Patient Disposition: Home Condition: Stable Prescriptions: New furosemide 40 mg Tablet 20 mg PO DAILY@0800 Qty: 30 0RF spironolactone 25 mg Tablet 50 mg PO DAILY Qty: 30 0RF levofloxacin 750 mg tablet 750 mg PO DAILY 7 Days Qty: 7 0RF Continued aspirin 81 mg Tablet,Delayed Release (Dr/Ec) 81 mg PO QAM simvastatin 40 mg tablet 40 mg PO QPM midodrine 5 mg Tablet 5 mg PO TID PRN (Reason: sbp less than 100mmhg) 30 Days Qty: 90 0RF potassium chloride 20 mEq/15 mL liquid 20 meq PO QPM pantoprazole 40 mg tablet,delayed release (DR/EC) 40 mg PO QAM Xifaxan 550 mg Tablet 550 mg ng-tube BID Qty: 30 0RF Rx Instructions: for 15 days (rx filled 02/10/23 got new rx from pcp but unable to warehouse order picker due to cost of medication) Changed lactulose 20 gram/30 mL solution 30 g PO QAM Qty: 1 0RF Held propranolol 20 mg Tablet 10 mg PO TID 30 Days Qty: 45 0RF Hold Instructions: see pcp Discontinued furosemide [Lasix] 40 mg tablet 40 mg PO BID Qty: 30 0RF spironolactone 25 mg tablet 25 mg PO DAILY Discharge Orders: Discharge Order (Routine); Ordered 03/02/23 Ordered By: Alecia Pickard Referrals: Fausto Poe MD [Primary Care Provider] - 03/04/23 1:30 pm Discharge Diet: Usual diet Patient Instructions: Spironolactone (By mouth), Furosemide (By mouth) (Lasix), Levofloxacin (By mouth) (Levaquin, Levaquin Leva-malinda), Cirrhosis of the Liver (DC), Urinary Tract Infection in Men (DC), Hepatic Encephalopathy (DC), Opioid Safety Activity Restrictions/Additional Instructions: Please see PCP for referral to GI at [place] Discharge Attestations Time Spent in Discharge Care*: greater than 30 min Status at Discharge: Cognitive status at discharge: cognitively intact , Behavioral status at discharge: cooperative , Quality Metrics Clinical Quality Measures [ No reported AMI, CVA or VTE this stay] Coding Level of Care Code Acute Code for Chg Fwd Diagnoses Acute UTI N39.0 AMS (altered mental status) R41.82 Hyperammonemia E72.20 Encephalopathy, hepatic K76.82 Lymphedema I89.0 Cirrhosis of liver K74.60 Anasarca R60.1
[2023-03-02 15:07] VITALS: BP 118/71; PULSE 70; RESP 16; O2SAT 95
== END 2023-03-02 15:07 | disposition home or self-care (01) | DRG 442 ==
LOC: ER 15:47 → MEDSURG 16:20
PROVIDERS: Admitting Provider Internal Medicine; Emergency Provider Internal Medicine; PCP Family Medicine; Visit Provider Internal Medicine
DX: K76.82 Hepatic encephalopathy (principal); D68.9 Coagulation defect, unspecified; E72.20 Disorder of urea cycle metabolism, unspecified; K76.6 Portal hypertension; R18.8 Other ascites; N39.0 Urinary tract infection, site not specified; I25.10 Atherosclerotic heart disease of native coronary artery without angina pectoris; K74.60 Unspecified cirrhosis of liver; I10 Essential (primary) hypertension; E78.5 Hyperlipidemia, unspecified; N52.9 Male erectile dysfunction, unspecified; F17.210 Nicotine dependence, cigarettes, uncomplicated; I89.0 Lymphedema, not elsewhere classified; B95.5 Unspecified streptococcus as the cause of diseases classified elsewhere; R00.1 Bradycardia, unspecified
CPT/HCPCS: 36415; 36416; 80053; 80306; 81001; 82140; 82607; 82962; 83605; 83690; 83735; 84100; 84145; 84443; 85025; 85049; 85384; 85610; 85730; 86140; 87077; 87086; 87186; 93005; 96365; 96372; 99285; J0696; J3430

== ENCOUNTER 2023-05-06 18:52 | Emergency (ER) | payer SELFPAY ==
[2023-05-06 19:02] VITALS: BP 160/85; PULSE 64; RESP 18; TEMP 36.7; O2SAT 98; BMI 33.7
--- NOTE | 2023-05-06 19:12 | XRR_ITS ---
PROCEDURE INFORMATION: Exam: XR Chest Exam date and time: 05/06/2023 7:47 PM Age: 62 years old Clinical indication: Prior surgery; Surgery date: 6+ months; Patient HX: AMS; Liver disease; HTN; Smoker x 40+ yrs-recently quit; Cardiac stent 1997 TECHNIQUE: Imaging protocol: Radiologic exam of the chest. Views: 1 view. COMPARISON: CR XR chest 1V portable [id number] 02/05/2023 3:51 PM FINDINGS: Lungs: Subtle asymmetric left basilar opacity. Pleural spaces: No pleural effusion. No pneumothorax. Heart/Mediastinum: Normal cardiomediastinal silhouette. Mild aortic calcifications. Bones/joints: No acute osseous abnormality. XR/XR chest 1V portable [id number] IMPRESSION: Subtle asymmetric left basilar opacity, indeterminate for artifact related to osseous superimposition, atelectasis, versus focus of aspiration/pneumonia.
--- NOTE | 2023-05-06 19:14 | ECG_ITS ---
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 Measurements Intervals [place] Rate: 52 P: 56 [place]: 191 QRS: 20 QRSD: 99 T: 44 QT: 452 QTc: 422 Interpretive Statements SINUS BRADYCARDIA Compared to ECG 03/01/2023 12:36:15 No significant changes Electronically Signed On 05-06-2023 21:39:50 [employer] MANAGER by Garrett Prater M.D. [id number]
[2023-05-06 19:16] VITALS: BP 140/78; PULSE 55; RESP 17; O2SAT 99
--- NOTE | 2023-05-06 19:22 | ED_ITS ---
HPI - Altered Mental Status 2 General: Chief Complaint: Altered Mental Status Stated Complaint: confusion, slurred speech Time Seen by Provider: 05/06/23 19:07 History of Present Illness: Patient presents to the ER by EMS with complaints of altered mental status. Patient's says the patient has increased confusion over the past several days. Patient does have a history of liver failure and is currently on lactulose and normally has 6 or 8 soft stools a day. Over the last 24 hours he is only had 1 soft stool. Patient has a appointment up in [place] with the liver transplant team in approximately 1 week. Patient denies any coughs colds fevers chills nausea vomiting diarrhea. Patient just more confused with every day activities and is not acting himself. Patient has been taking his medicine. Patient has been hospitalized before for hepatic encephalopathy due to elevated ammonia. Review of Systems 2 General: Reports: 10 or more systems reviewed and unremarkable except in HPI and below PFSH ED 2 PFSH: Medical History GERD (gastroesophageal reflux disease) Male erectile dysfunction, unspecified Tobacco abuse FH: cholecystectomy Coronary artery disease Hyperlipidemia, unspecified HTN (hypertension) Surgical History History of back surgery Stented coronary artery Family History Brother CAD (coronary artery disease) Hypertension Father Family history of premature coronary artery disease Hypertension Stroke Social History Smoking and tobacco/nicotine status: former use of tobacco/nicotine Quit status (tobacco/nicotine): has quit using Alcohol intake: former Substance/Drug Use: never Physical Exam 2 Const: COMMON NORMALS: no acute distress, average body habitus, healthy appearing, alert and well nourished HENMT: COMMON NORMALS: normocephalic, atraumatic, hearing grossly normal bilaterally, external ears normal, EAC's normal, Normal external nose present, moist oral mucous membranes and oropharynx normal HEAD & SCALP: normocephalic and atraumatic NOSE: Normal external nose present EXTERNAL EAR: Yes external ears normal EXTERNAL AUDITORY CANAL: EAC's normal Neck/C-Spine: COMMON NORMALS: no JVD Chest: COMMONS NORMALS: normal inspection of the chest and normal palpation of entire chest wall Resp: COMMON NORMALS: normal respiratory effort, No retractions, No use of accessory muscles and clear to auscultation bilaterally AUSCULTATION: clear to auscultation bilaterally Cardio: COMMON NORMALS: no JVD, regular rate, regular rhythm, S1 normal heart sound present, S2 normal heart sound present, No gallops present (Cardio), No clicks present (Cardio), No murmurs present (Cardio) and No rub (Cardio) R ATE: regular rate RHYTHM: regular rhythm HEART SOUNDS: S1 normal heart sound present and S2 normal heart sound present GI: COMMON NORMALS: Normal to inspection, nondistended, normoactive bowel sounds present, Soft to palpation and non-tender PALPATION: Yes Soft to palpation Extremity: NARRATIVE EXTREMITY EXAM: 2+ bilateral lower extremity pitting robert ma Neuro: SENSORIUM/ORIENTATION: Yes alert Course 2 Vital Signs: Vital signs: Vital Signs Temperature 98.0 F 05/06/23 19:02 Pulse Rate 60 05/06/23 21:04 Respiratory Rate 18 05/06/23 21:04 Blood Pressure 132/65 05/06/23 21:04 Pulse Oximetry 99 05/06/23 21:04 Oxygen Delivery Me thod Room Air 05/06/23 21:04 MDM - Altered Mental Status Medical Decision Making Patient had extensive workup including chest x-ray, chest CT, head CT, lab work and urinalysis. All of which was essentially unknown remarkable or benign for this patient except possible mild urinary tract infection. Patient's ammonia was 60. Patient was given Cipro here in the ER and will be discharged on Cipro. Patient should follow-up with his family doc within the next 7 days for further evaluation and treatment. If patient's symptoms worsen he should return to the ER. Differential Diagnosis Likely altered mental status; Unlikely alcoholic intoxication, delirium, dementia, hypoglycemia, hyponatremia, subarachnoid hemorrhage or sepsis Medical Records I reviewed the patient's medical records. Lab Data I reviewed the patient's lab results. 05/06/23 19:08 05/06/23 19:08 Radiology Impressions Chest X-Ray 05/06/23 19:12 IMPRESSION: Subtle asymmetric left basilar opacity, indeterminate for artifact related to osseous superimposition, atelectasis, versus focus of aspiration/pneumonia. Chest CT 05/06/23 20:18 IMPRESSION: No acute findings. Head CT 05/06/23 20:18 IMPRESSION: No acute intracranial findings. Laboratory Results WBC 6.88 10^3/uL (3.29-11.43) 05/06/23 19:08 RBC 3.67 10^6/uL (3.85-5.65) L 05/06/23 19:08 Hgb 13.40 g/dL (11.27-16.99) 05/06/23 19:08 Hct 38.3 % (37-53) 05/06/23 19:08 MCV 104.4 fl (82-101) H 05/06/23 19:08 MCH 36.5 pg (27-33) H 05/06/23 19:08 MCHC 35.0 g/dL (30-55) 05/06/23 19:08 RDW 14.7 % (12.1-15.1) 05/06/23 19:08 Plt Count 127 10^3/cmm (157-399) L 05/06/23 19:08 MPV 10.5 fL (7.4-10.4) H 05/06/23 19:08 Neut % (Auto) 70.9 % 05/06/23 19:08 Lymph % (Auto) 18.5 % 05/06/23 19:08 [place] % (Auto) 8.1 % 05/06/23 19:08 Eos % (Auto) 1.6 % 05/06/23 19:08 Baso % (Auto) 0.6 % 05/06/23 19:08 Neut # (Auto) 4.88 10^3/uL (1.8-7.7) 05/06/23 19:08 Lymph # (Auto) 1.3 10^3/uL (0.8-4.8) 05/06/23 19:08 [place] # (Auto) 0.6 10^3/uL (0.2-0.9) 05/06/23 19:08 Eos # (Auto) 0.1 10^3/uL (0.0-0.8) 05/06/23 19:08 Baso # (Auto) 0.0 10^3/uL (0.0-0.1) 05/06/23 19:08 Nucleated RBC % (auto) 0 % 05/06/23 19:08 Nucleated RBCs # 0.0 /100WBC 05/06/23 19:08 PT 19.60 SECONDS (12.1-14.9) H 05/06/23 19:08 INR 1.60 (0.8-1.2) H 05/06/23 19:08 Sodium 135 mmol/L (136-145) L 05/06/23 19:08 Potassium 4.4 mmol/L (3.5-5.1) 05/06/23 19:08 Chloride 99 mmol/L (98-107) 05/06/23 19:08 Carbon Dioxide 25 mmol/L (22-29) 05/06/23 19:08 Anion Gap 15.4 (5-19) 05/06/23 19:08 BUN 30 mg/dL (8-23) H 05/06/23 19:08 Creatinine 1.7 mg/dL (0.7-1.2) H 05/06/23 19:08 GFR Calculation 41.3 mL/min (90-130) L 05/06/23 19:08 Glucose 151 mg/dL (65-115) H 05/06/23 19:08 Calculated Osmolality 289 mOsm/kg (285-295) 05/06/23 19:08 Calcium 9.2 mg/dL (8.5-10.5) 05/06/23 19:08 Phosphorus 3.4 mg/dL (2.5-4.5) 05/06/23 19:08 Magnesium 1.9 mg/dL (1.7-2.3) 05/06/23 19:08 Total Bilirubin 3.9 mg/dL (0.15-1.2) H 05/06/23 19:08 AST 99 U/L (0-40) H 05/06/23 19:08 ALT 74 U/L (0-41) H 05/06/23 19:08 Alkaline Phosphatase 129 U/L (40-130) 05/06/23 19:08 Ammonia 60 umol/L (16-60) 05/06/23 19:08 Troponin T Baseline 26 ng/L (0-15) H 05/06/23 19:08 NT-Pro-B Natriuret Pep 310 pg/mL (0-125) H 05/06/23 19:08 Total Protein 7.6 g/dL (6.6-8.7) 05/06/23 19:08 Albumin 3.0 g/dL (3.5-5.2) L 05/06/23 19:08 Globulin 4.6 g/dL (1.3-4.6) 05/06/23 19:08 Urine Color Yellow (Yellow) 05/06/23 19:31 Urine Appearance Sl hazy (CLEAR) A 05/06/23 19:31 Urine pH 6.5 (5-7) 05/06/23 19:31 Ur Specific [place] 1.005 (1.005-1.030) 05/06/23 19:31 Urine Protein Neg (Negative) 05/06/23 19: Urine Glucose (UA) Norm (Normal) 05/06/23 19: Urine Ketones Negative (Negative) 05/06/23 19:31 Urine Blood Neg (Negative) 05/06/23 19:31 Urine Nitrate Negative (Negative) 05/06/23 19: Urine Bilirubin Neg (Negative) 05/06/23 19: Urine Urobilinogen Norm mg/dL (Negative) 05/06/23 19:31 Ur Leukocyte Esterase 1+ (Negative) H 05/06/23 19:31 Urine RBC None /hpf (0-2) 05/06/23 19:31 Urine WBC 5-10 /hpf (0-5) H 05/06/23 19:31 Ur Squamous Epith Cells 0-4 /hpf (0-5) H 05/06/23 19:31 Amorphous Sediment Trace /hpf 05/06/23 19:31 Urine Bacteria 1+ /hpf (NONE) H 05/06/23 19:31 Hyaline Casts Rare /lpf 05/06/23 19:31 Urine Mucus Trace /hpf 05/06/23 19:31 Urine Opiates Screen Negative ng/mL (Negative) 05/06/23 19: Ur Barbiturates Screen Negative ng/mL (Negative) 05/06/23 19: Ur Phencyclidine Scrn Negative ng/mL (Negative) 05/06/23 19:31 Ur Amphetamines Screen Negative ng/mL (Negative) 05/06/23 19:31 U Benzodiazepines Scrn Negative ng/mL (Negative) 05/06/23 19:31 Urine Cocaine Screen Negative ng/mL (Negative) 05/06/23 19:31 U Marijuana (THC) Screen Negative ng/mL (Negative) 05/06/23 19:31 All radiology interpretation(s) finalized by discharge Discharge Plan Discharge Patient Disposition: Home Clinical Impression: Altered mental status, Urinary tract infection Condition: Stable Prescriptions: No Action simvastatin 40 mg tablet 40 mg PO QPM Qty: 30 3RF pantoprazole 40 mg tablet,delayed release (DR/EC) 40 mg PO QAM PRN (Reason: acid reflux) Qty: 30 3RF aspirin 81 mg tablet,delayed release (DR/EC) 81 mg PO QAM Qty: 100 3RF bumetanide 1 mg tablet 1 mg PO BID Qty: 60 1RF potassium chloride 20 mEq tablet extended release 20 meq PO BID Qty: 60 5RF spironolactone 50 mg tablet 50 mg PO BID Qty: 60 3RF lactulose 20 gram/30 mL solution 30 g PO QAM Qty: 10 2RF Discharge Orders: Discharge ED (Routine); Ordered 05/06/23 Ordered By: Guerrero Herr Referrals: Carlos Phillips MD [Primary Care Provider] - 1 week Patient Instructions: Altered Mental Status (ED), Urinary Tract Infection in Men (ED) Activity Restrictions/Additional Instructions: Your workup in ER was essentially unremarkable except for a mild urinary tract infection. Please take all your antibiotics as directed. Please follow-up with your family practice physician within the next 7 to 10 days for further evaluation and treatment. If your symptoms worsen please return to the ER. 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
[2023-05-06 19:28] LABS: Basophils % 0.6 %; Eosinophils # 0.1 10^3/uL (0.0-0.8); Eosinophils % 1.6 %; Hematocrit 38.3 % (37-53); Lymphocytes # 1.3 10^3/uL (0.8-4.8); Lymphocytes % 18.5 %; Mean Corpuscular Hemoglobin 36.5 pg (27-33); Mean Corpuscular Volume 104.4 fl (82-101); Mean Platelet Volume 10.5 fL (7.4-10.4); Monocytes # 0.6 10^3/uL (0.2-0.9); Monocytes % 8.1 %; Neutrophils # 4.88 10^3/uL (1.8-7.7); Neutrophils % 70.9 %; Nucleated Red Blood Cells % 0 %; Platelet Count 127 10^3/cmm (157-399); Red Blood Count 3.67 10^6/uL (3.85-5.65); Red Cell Distribution Width 14.7 % (12.1-15.1); White Blood Count 6.88 10^3/uL (3.29-11.43)
[2023-05-06 19:45] LABS: Troponin(5th) Baseline 26 ng/L (0-15)
[2023-05-06 19:52] LABS: Ammonia 60 umol/L (16-60)
[2023-05-06 19:53] VITALS: BP 125/71; PULSE 59; RESP 28; O2SAT 97
[2023-05-06 19:56] LABS: Amphetamines Screen Urine Negative (Negative); Barbiturates Screen Urine Negative (Negative); Benzodiazepines Screen Urine Negative (Negative); Cocaine Screen Urine Negative (Negative); Opiate Screen Urine Negative (Negative); PCP Screen Urine Negative (Negative); THC Screen Urine Negative (Negative)
[2023-05-06 20:04] LABS: Alanine Aminotransferase 74 U/L (0-41); Alkaline Phosphatase 129 U/L (40-130); Anion Gap 15.4 (5-19); Aspartate Amino Transferase 99 U/L (0-40); Blood Urea Nitrogen 30 mg/dL (8-23); Calcium 9.2 mg/dL (8.5-10.5); Carbon Dioxide 25 mmol/L (22-29); Chloride 99 mmol/L (98-107); Globulin 4.6 g/dL (1.3-4.6); Glomerular Filtration Rate 41.3 mL/min (90-130); Glucose 151 mg/dL (65-115); Magnesium 1.9 mg/dL (1.7-2.3); NT Pro B Type Natriuretic Pept 310 pg/mL (0-125); Osmolality Calculated 289 mOsm/kg (285-295); Phosphorus 3.4 mg/dL (2.5-4.5); Potassium 4.4 mmol/L (3.5-5.1); Sodium 135 mmol/L (136-145); Total Bilirubin 3.9 mg/dL (0.15-1.2); Total Protein 7.6 g/dL (6.6-8.7)
[2023-05-06 20:05] VITALS: BP 125/65; PULSE 59; RESP 24; O2SAT 97
[2023-05-06 20:08] LABS: Add Urine Microscopic? YES; Bilirubin Urine Neg (Negative); Blood Urine Neg (Negative); Glucose Urine UA Norm (Normal); Ketones Urine Negative (Negative); Leukocyte Esterase Urine 1+ (Negative); Nitrate Urine Negative (Negative); Protein Urine Neg (Negative); Specific Gravity, Urine 1.005 (1.005-1.030); Urine Appearance SL Hazy (CLEAR); Urine Color Yellow (Yellow); Urobilinogen Urine Norm (Negative); pH Urine 6.5 (5-7)
[2023-05-06 20:09] LABS: Amorphous Sediment Urine TRACE /hpf; Bacteria Urine 1+ /hpf; Hyaline Casts Urine RARE /lpf; Mucus Urine TRACE /hpf; Squamous Epithelial Cell Urine 0-4 /hpf (0-5)
[2023-05-06 20:10] LABS: Add Urine Culture? No
--- NOTE | 2023-05-06 20:18 | CTR_ITS ---
PROCEDURE INFORMATION: Exam: CT Chest With Contrast; Diagnostic Exam date and time: 05/06/2023 8:40 PM Age: 62 years old Clinical indication: Abnormal findings; Abnormal radiologic exam of lung or chest; Additional info: Abnormal cxr, AMS, confusion, tachypnea TECHNIQUE: Imaging protocol: Diagnostic computed tomography of the chest with contrast. Radiation optimization: All CT scans at this facility use at least one of these dose optimization techniques: automated exposure control; mA and/or kV adjustment per patient size (includes targeted exams where dose is matched to clinical indication); or iterative reconstruction. Contrast material: OMNI 350; Contrast volume: 100 ml; Contrast route: INTRAVENOUS (IV); COMPARISON: CR (CHEST, ) 05/06/2023 7:47 PM RADIATION DOSE METRICS: Total DLP (mGy-cm): 707.2 FINDINGS: Lungs: Unremarkable. No consolidation. No masses. Pleural spaces: Unremarkable. No pneumothorax. No pleural effusion. Heart: Unremarkable. No cardiomegaly. No pericardial effusion. Lymph nodes: Unremarkable. No enlarged lymph nodes. Vasculature: Unremarkable. No aortic aneurysm. Bones/joints: Unremarkable. No acute fracture. Soft tissues: Unremarkable. CT/CT chest w con* [id number] IMPRESSION: No acute findings.
--- NOTE | 2023-05-06 20:18 | CTR_ITS ---
PROCEDURE INFORMATION: Exam: CT Head Without Contrast Exam date and time: 05/06/2023 8:38 PM Age: 62 years old Clinical indication: Altered mental status/memory loss; Additional info: AMS TECHNIQUE: Imaging protocol: Computed tomography of the head without contrast. Radiation optimization: All CT scans at this facility use at least one of these dose optimization techniques: automated exposure control; mA and/or kV adjustment per patient size (includes targeted exams where dose is matched to clinical indication); or iterative reconstruction. COMPARISON: CT head wo con* [id number] 02/05/2023 10:20 AM RADIATION DOSE METRICS: Total DLP (mGy-cm): 1114.08 FINDINGS: Brain: No acute intracranial hemorrhage. No mass effect or midline shift. Basal cisterns are patent. Normal rizvi-white matter differentiation. Cerebral ventricles: No ventriculomegaly. Paranasal sinuses: Visualized sinuses are unremarkable. Mastoid air cells: Visualized mastoid air cells are clear. Bones/joints: No acute calvarial fracture. Soft tissues: Unremarkable. CT/CT head wo con* [id number] IMPRESSION: No acute intracranial findings.
[2023-05-06 21:04] VITALS: BP 132/65; PULSE 60; RESP 18; O2SAT 99
[2023-05-06] MEDS: ciprofloxacin 500 mg Tablet PO (21:26)
[2023-05-06 21:30] VITALS: BP 125/73; PULSE 60; O2SAT 99
[2023-05-06 21:48] LABS: Troponin 5 2HR 25.39 ng/L (0-15); Troponin 5 2HR Delta -0.61 ABS# (0-10)
== END 2023-05-06 21:32 | disposition home or self-care (01) ==
PROVIDERS: Emergency Provider Emergency Medicine; PCP Family Medicine Adult Medicine
DX: R41.82 Altered mental status, unspecified (principal); N39.0 Urinary tract infection, site not specified; Z79.82 Long term (current) use of aspirin; I25.10 Atherosclerotic heart disease of native coronary artery without angina pectoris; E78.5 Hyperlipidemia, unspecified; I10 Essential (primary) hypertension; Z87.891 Personal history of nicotine dependence
CPT/HCPCS: 36415; 70450; 71045; 71260; 80053; 80306; 81001; 82140; 83735; 83880; 84100; 84484; 85025; 85610; 93005; 99285; Q9967

== ENCOUNTER 2023-07-02 08:45 | Emergency (ER) | payer SELFPAY ==
[2023-07-02] VITALS (20 sets, daily range): BP systolic 81–121; BP diastolic 44–69; PULSE 90–100; RESP 16–30; TEMP 36.4; O2SAT 89–98; BMI 40.6
--- NOTE | 2023-07-02 09:26 | ECG_ITS ---
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 Measurements Intervals [place] Rate: 95 P: 57 [place]: 184 QRS: -5 QRSD: 97 T: 74 QT: 354 QTc: 446 Interpretive Statements SINUS RHYTHM ANTERIOR MYOCARDIAL INFARCTION , PROBABLY OLD [40+ ms Q WAVE AND/OR ST/T ABNORMALITY IN V3/V4] INFERIOR MYOCARDIAL INFARCTION , PROBABLY OLD [40+ ms Q WAVE AND/OR ST/T ABNORMALITY IN II/aVF] Compared to ECG 05/06/2023 19:28:32 Myocardial infarct finding now present Sinus bradycardia no longer present Electronically Signed On 07-02-2023 22:09:08 CDT by Garrett Prater M.D. [id number]
--- NOTE | 2023-07-02 09:26 | XR_ITS ---
WS: [id number] Portable AP upright chest, 07/02/2023 Clinical Data: dyspnea/cough Comparison: Portable chest, 05/06/2023 Findings: No nodules, masses or effusions are seen. The heart is normal. The pulmonary vascularity is not increased. No pneumonia or pneumothorax is seen. Monitor leads are on the chest wall. Impression: Negative chest.
--- NOTE | 2023-07-02 09:36 | W.ED.ABDPA2 ---
HPI - Abdominal Pain General: Chief Complaint: Abdominal Pain Stated Complaint: sob, N, abd pain, back pain Time Seen by Provider: 07/02/23 09:24 Source: patient Mode of arrival: ambulatory History of Present Illness: 62-year-old male with history of liver failure. 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 He is had increased diarrhea the last couple of days decreased appetite increasing distention of his abdomen. He is also noticed increased lower extremity edema. He has noticed melena and coffee-ground like emesis overnight. No chest pain no fever. Location: Diffuse Associated Symptoms: Reports coffee ground emesis, melena, nausea and vomiting; Denies chills, dysuria and fever(s) Review of Systems Const: Reports: fatigue and malaise; Denies: fever(s) or chills Card: Denies: chest pain Resp: Denies: dyspnea GI: Reports: abdominal pain, nausea, vomiting, coffee ground emesis and melena : Denies: flank pain, dysuria, urinary frequency or urinary urgency Musc: Denies: neck pain or back pain Neuro: Denies: headache(s) PFSH ED PFSH: Medical History GERD (gastroesophageal reflux disease) Male erectile dysfunction, unspecified Tobacco abuse FH: cholecystectomy Coronary artery disease Hyperlipidemia, unspecified HTN (hypertension) Surgical History History of back surgery Stented coronary artery Family History Brother CAD (coronary artery disease) Hypertension Father Family history of premature coronary artery disease Hypertension Stroke Social History Smoking and tobacco/nicotine status: former use of tobacco/nicotine Quit status (tobacco/nicotine): has quit using Alcohol intake: former Substance/Drug Use: never Physical Exam Const: GENERAL APPEARANCE: comfortable ORIENTATION/CONSCIOUSNESS: Yes awake, Yes oriented to person, Yes oriented to place and Yes oriented to time HENMT: COMMON NORMALS: normocephalic, atraumatic and hearing grossly normal bilaterally HEAD & SCALP: normocephalic and atraumatic Resp: COMMON NORMALS: normal respiratory effort, No retractions, No use of accessory muscles and clear to auscultation bilaterally AUSCULTATION: clear to auscultation bilaterally Cardio: COMMON NORMALS: regular rate, regular rhythm and No murmurs present (Cardio) RATE: regular rate RHYTHM: regular rhythm GI: COMMON NORMALS: Soft to palpation and No hepatosplenomegaly present INSPECTION: Yes Anasarca and Yes abdominal distension AUSCULTATION: Yes Hypoactive bowel sounds present PALPATION: Yes Soft to palpation, No Tenderness to palpation present (GI), No Guarding due to palpation present (GI), Yes No hepatosplenomegaly present and Yes Ascites present PERCUSSION: dullness to percussion Extremity: COMMON NORMALS: normal to inspection, capillary refill normal, no clubbing, cyanosis or edema, no calf tenderness and no pedal edema Neuro: SENSORIUM/ORIENTATION: Yes oriented to person, Yes oriented to place and Yes oriented to time Skin: COMMON NORMALS: no rashes or lesions noted GENERAL SKIN EXAM: no rashes or lesions noted Course Vital Signs: Vital signs: Vital Signs Temperature 97.5 F L 07/02/23 11:38 Pulse Rate 95 07/02/23 11:38 Respiratory Rate 30 H 07/02/23 11:38 Blood Pressure 106/58 07/02/23 11:38 Pulse Oximetry 95 07/02/23 11:38 Oxygen Delivery Me thod Room Air 07/02/23 09:16 MDM - Abdominal Pain Medical Decision Making Patient have active coffee-ground emesis on arrival. He was given transischemic acid, octreotide, ceftriaxone, IV Protonix, IV fluid bolus. He has chronic anemia his hemoglobin is greater than 8 however given his active bleeding he was transfused a unit of blood he was also given fresh frozen plasma. Discussed with Dr. James who is his usual GI doctor at [facility] she agrees with current treatment recommends emergent EGD for evaluation we do not have GI at our facility she concurs with transfer to have availability of gastroenterology. Given the length of time to travel his critical diagnosis with significant risk for rapid decompensation he was taken by area of back to [facility] ER to ER transfer. Medical Records I reviewed the patient's medical records. Lab Data I reviewed the patient's lab results. 07/02/23 09:30 07/02/23 09:30 Labs/Radiology: Laboratory Results WBC 16.91 10^3/uL (3.29-11.43) H 07/02/23 09:30 RBC 2.23 10^6/uL (3.85-5.65) L 07/02/23 09:30 Hgb 8.40 g/dL (11.27-16.99) L 07/02/23 09:30 Hct 24.7 % (37-53) L 07/02/23 09:30 MCV 110.8 fl (82-101) H 07/02/23 09:30 MCH 37.7 pg (27-33) H 07/02/23 09:30 MCHC 34.0 g/dL (30-55) 07/02/23 09:30 RDW 16.2 % (12.1-15.1) H 07/02/23 09:30 Plt Count 221 10^3/cmm (157-399) 07/02/23 09:30 MPV 10.0 fL (7.4-10.4) 07/02/23 09:30 Neut % (Auto) 81.6 % 07/02/23 09:30 Lymph % (Auto) 8.8 % 07/02/23 09:30 [place] % (Auto) 7.9 % 07/02/23 09:30 Eos % (Auto) 0.1 % 07/02/23 09:30 Baso % (Auto) 0.2 % 07/02/23 09:30 Neut # (Auto) 13.80 10^3/uL (1.8-7.7) H 07/02/23 09:30 Lymph # (Auto) 1.5 10^3/uL (0.8-4.8) 07/02/23 09:30 [place] # (Auto) 1.3 10^3/uL (0.2-0.9) H 07/02/23 09:30 Eos # (Auto) 0.0 10^3/uL (0.0-0.8) 07/02/23 09:30 Baso # (Auto) 0.0 10^3/uL (0.0-0.1) 07/02/23 09:30 Nucleated RBC % (auto) 0 % 07/02/23 09:30 Nucleated RBCs # 0.0 /100WBC 07/02/23 09:30 PT 27.70 SECONDS (12.1-14.9) H 07/02/23 09:30 INR 2.47 (0.8-1.2) H 07/02/23 09:30 APTT 42.1 SECONDS (23.9-36.7) H 07/02/23 09:30 Sodium 120 mmol/L (136-145) L 07/02/23 09:30 Potassium 5.9 mmol/L (3.5-5.1) H 07/02/23 09:30 Chloride 84 mmol/L (98-107) L 07/02/23 09:30 Carbon Dioxide 21 mmol/L (22-29) L 07/02/23 09:30 Anion Gap 20.9 (5-19) H 07/02/23 09:30 BUN 54 mg/dL (8-23) H 07/02/23 09:30 Creatinine 1.9 mg/dL (0.7-1.2) H 07/02/23 09:30 GFR Calculation 36.3 mL/min (90-130) L 07/02/23 09:30 Glucose 134 mg/dL (65-115) H 07/02/23 09:30 Calculated Osmolality 267 mOsm/kg (285-295) L 07/02/23 09:30 Calcium 8.6 mg/dL (8.5-10.5) 07/02/23 09:30 Magnesium 2.1 mg/dL (1.7-2.3) 07/02/23 09:30 Total Bilirubin 7.1 mg/dL (0.15-1.2) H* 07/02/23 09:30 AST 387 U/L (0-40) H 07/02/23 09:30 ALT 253 U/L (0-41) H 07/02/23 09:30 Alkaline Phosphatase 277 U/L (40-130) H 07/02/23 09:30 Ammonia 23 umol/L (16-60) 07/02/23 09:30 Total Protein 5.5 g/dL (6.6-8.7) L 07/02/23 09:30 Albumin 2.3 g/dL (3.5-5.2) L 07/02/23 09:30 Globulin 3.2 g/dL (1.3-4.6) 07/02/23 09:30 Lipase 52 U/L (13-60) 07/02/23 09:30 Urine Color Yellow (Yellow) 07/02/23 11:08 Urine Appearance Clear (CLEAR) 07/02/23 11:08 Urine pH 5 (5-7) 07/02/23 11:08 Ur Specific [place] 1.015 (1.005-1.030) 07/02/23 11:08 Urine Protein Neg (Negative) 07/02/23 11:08 Urine Glucose (UA) Norm (Normal) 07/02/23 11:08 Urine Ketones 1+ (Negative) H 07/02/23 11:08 Urine Blood Neg (Negative) 07/02/23 11:08 Urine Nitrate Negative (Negative) 07/02/23 11:08 Urine Bilirubin 1+ (Negative) H 07/02/23 11:08 Urine Urobilinogen Norm mg/dL (Negative) 07/02/23 11:08 Ur Leukocyte Esterase Negative (Negative) 07/02/23 11:08 Gastric Occult Blood Positive (Negative) H 07/02/23 09:02 Blood Type A Positive 07/02/23 09:46 Rho(D) Type Rh positive 07/02/23 09:46 Antibody Screen Negative 07/02/23 09:46 Crossmatch See Detail 07/02/23 09:46 All radiology interpretation(s) finalized by discharge Critical Care Time Critical Care Time: Critical Care Time: Yes Total Critical Care Time: 35 Attestation: The high probability of a clinically significant, sudden or life threatening deterioration of the patient's hepatic, renal, hematologic, already vascular system(s) required my full and direct attention, intervention and personal management. The critical care time is as shown. This time is in addition to time spent performing any reported procedures but includes the following: [x] Data and vital sign review and interpretation [x] Patient assessment, examination and intervention [x] Documentation [x] Medication orders and management Discharge Plan Discharge Patient Disposition: Xfer Short-Term Hosp Clinical Impression: Acute gastrointestinal bleeding, ZAHEER (acute kidney injury), Hepatorenal syndrome, Anasarca, Acute hepatic failure Coronary artery disease Qualifiers: Coronary Disease-Associated Artery/Lesion type: [place] artery [place] vs. 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
[2023-07-02 09:40] LABS: Basophils % 0.2 %; Eosinophils % 0.1 %; Hematocrit 24.7 % (37-53); Lymphocytes # 1.5 10^3/uL (0.8-4.8); Lymphocytes % 8.8 %; Mean Corpuscular Hemoglobin 37.7 pg (27-33); Mean Corpuscular Volume 110.8 fl (82-101); Monocytes # 1.3 10^3/uL (0.2-0.9); Monocytes % 7.9 %; Neutrophils % 81.6 %; Nucleated Red Blood Cells % 0 %; Platelet Count 221 10^3/cmm (157-399); Red Blood Count 2.23 10^6/uL (3.85-5.65); Red Cell Distribution Width 16.2 % (12.1-15.1); White Blood Count 16.91 10^3/uL (3.29-11.43)
[2023-07-02] MEDS: tranexamic acid 1,000 MG/100 ML PREMIX 600 MG IV (09:46)
[2023-07-02] MEDS: pantoprazole 40 mg SDV 80 MG IVP (09:48)
[2023-07-02] MEDS: octreotide 500 MCG in sodium chloride 0.9% (100 ml) 100 ML 10.0999999999999996 MCG IV (09:53)
[2023-07-02 10:01] LABS: INR 2.47 (0.8-1.2); Partial Thromboplastin Time 42.1 SECONDS (23.9-36.7)
[2023-07-02 10:04] LABS: Alanine Aminotransferase 253 U/L (0-41); Albumin Level 2.3 g/dL (3.5-5.2); Alkaline Phosphatase 277 U/L (40-130); Anion Gap 20.9 (5-19); Aspartate Amino Transferase 387 U/L (0-40); Blood Urea Nitrogen 54 mg/dL (8-23); Calcium 8.6 mg/dL (8.5-10.5); Carbon Dioxide 21 mmol/L (22-29); Chloride 84 mmol/L (98-107); Creatinine Clr Calc Pharmacy 53.9855; Globulin 3.2 g/dL (1.3-4.6); Glomerular Filtration Rate 36.3 mL/min (90-130); Glucose 134 mg/dL (65-115); Lipase 52 U/L (13-60); Magnesium 2.1 mg/dL (1.7-2.3); Osmolality Calculated 267 mOsm/kg (285-295); Potassium 5.9 mmol/L (3.5-5.1); Sodium 120 mmol/L (136-145); Total Protein 5.5 g/dL (6.6-8.7)
[2023-07-02 10:05] LABS: Ammonia 23 umol/L (16-60)
[2023-07-02 10:05] LABS: Gastricult Occult Blood Positive (Negative)
[2023-07-02 10:06] LABS: Total Bilirubin 7.1 mg/dL (0.15-1.2)
[2023-07-02] MEDS: sodium chloride 0.9% 1,000 ML 999 ML IV (10:09)
[2023-07-02] MEDS: calcium gluconate 0.1 gm/mL 10% SDV 10mL 1 GM IVP (10:28)
[2023-07-02] MEDS: sodium bicarbonate 8.4% 1 mEq/mL 50mL Syr 100 MEQ IVP (10:32)
[2023-07-02] MEDS: dextrose 10% 250 ML 1000 ML IV (10:51)
[2023-07-02] MEDS: insulin regular-human 100 units/1 mL 10 UNIT IVP (11:06)
[2023-07-02 11:28] LABS: Add Urine Microscopic? NO; Charge for UA Resulting for Rev
[2023-07-02] MEDS: sodium chloride 0.9% 100 mL Bag 50 ML IV (11:29)
[2023-07-02] MEDS: albumin 50 G/200 ML BAG 60 G IV (11:29)
--- NOTE | 2023-07-02 11:34 | PC.NURSE ---
patients blood for transfusion was verified in room with TOVA Nielson at bedside with flight crew present. Blood given to flight crew that will administered in flight.
[2023-07-02 11:37] LABS: Bilirubin Urine 1+ (Negative); Blood Urine Neg (Negative); Glucose Urine UA Norm (Normal); Ketones Urine 1+ (Negative); Leukocyte Esterase Urine Negative (Negative); Nitrate Urine Negative (Negative); Protein Urine Neg (Negative); Specific Gravity, Urine 1.015 (1.005-1.030); Urine Appearance Clear (CLEAR); Urine Color Yellow (Yellow); Urobilinogen Urine Norm (Negative); pH Urine 5 (5-7)
== END 2023-07-02 11:41 | disposition short-term general hospital (02) ==
PROVIDERS: Emergency Provider Family Medicine; PCP Family Medicine Adult Medicine
DX: I25.10 Atherosclerotic heart disease of native coronary artery without angina pectoris (principal); K92.2 Gastrointestinal hemorrhage, unspecified; N17.9 Acute kidney failure, unspecified; K76.7 Hepatorenal syndrome; R60.1 Generalized edema; K72.00 Acute and subacute hepatic failure without coma; K74.60 Unspecified cirrhosis of liver; Z87.891 Personal history of nicotine dependence; I10 Essential (primary) hypertension; E78.5 Hyperlipidemia, unspecified
CPT/HCPCS: 36415; 51702; 71045; 80053; 81003; 82140; 82271; 83690; 83735; 85025; 85610; 85730; 86850; 86900; 86920; 87040; 93005; 96365; 96366; 96367; 96375; 99285; C9113; J0612; J1815; J2354; J7030; J7799; P9016; P9046

== ENCOUNTER → 2023-07-30 14:29 | Outpatient (BNVA) | payer MEDICARE, SELFPAY | PROVIDERS: PCP Family Medicine Adult Medicine; Visit Provider Family Medicine Adult Medicine | DX: K74.60 Unspecified cirrhosis of liver (principal); R18.8 Other ascites; N18.32 Chronic kidney disease, stage 3b; I10 Essential (primary) hypertension | CPT/HCPCS: 80053; 85025 ==

== ENCOUNTER 2023-08-07 21:27 | Emergency (ER) | payer MEDICARE, SELFPAY ==
--- NOTE | 2023-08-07 21:35 | XRR_ITS ---
PROCEDURE INFORMATION: Exam: XR Chest Exam date and time: 08/07/2023 10:59 PM Age: 62 years old Clinical indication: Shortness of breath; Prior surgery; Surgery date: 6+ months; Surgery type: Coronary stent; Patient HX: C/O SOB; Additional info: Dyspnea TECHNIQUE: Imaging protocol: Radiologic exam of the chest. Views: 1 view. COMPARISON: CR XR chest 1V portable [id number] 07/02/2023 10:10 AM FINDINGS: Lungs: Mild left basilar atelectasis and/or scarring. The lungs are otherwise clear. No consolidation. Pleural spaces: No pleural effusion or pneumothorax. Heart/Mediastinum: The cardiomediastinal silhouette is within normal limits. Bones/joints: No acute osseous abnormalities are seen. XR/XR chest 1V portable [id number] IMPRESSION: No acute cardiopulmonary disease.
[2023-08-07 21:42] VITALS: BP 110/71; PULSE 119; RESP 18; TEMP 36.4; O2SAT 93
[2023-08-07 22:59] LABS: Basophils % 0.6 %; Eosinophils # 0.2 10^3/uL (0.0-0.8); Eosinophils % 7.4 %; Lymphocytes # 1.2 10^3/uL (0.8-4.8); Lymphocytes % 38.8 %; Mean Corpuscular HGB Conc 32.2 g/dL (30-55); Mean Corpuscular Hemoglobin 35.2 pg (27-33); Mean Corpuscular Volume 109.5 fl (82-101); Mean Platelet Volume 12.9 fL (7.4-10.4); Monocytes # 0.1 10^3/uL (0.2-0.9); Monocytes % 3.6 %; Neutrophils # 1.52 10^3/uL (1.8-7.7); Neutrophils % 49.3 %; Nucleated Red Blood Cells % 0 %; Platelet Count 50 10^3/cmm (157-399); Red Cell Distribution Width 18.4 % (12.1-15.1); White Blood Count 3.09 10^3/uL (3.29-11.43)
--- NOTE | 2023-08-07 23:00 | ED_ITS ---
HPI - Abdominal Pain 2 General: Chief Complaint: Abdominal Pain Stated Complaint: Having trouble breathing,cant eat Time Seen by Provider: 08/07/23 22:50 History of Present Illness: Patient presents to the ER with increasing fluid in his abdomen to the point it is causing pain and causing him to be short of breath. Patient does have severe cirrhosis and has an order to be drained every 2 weeks. Is been approximately 2 weeks since the last time he was drained. This was during his stay up at the hospital in [place]. Patient is trying to get on the liver transplant list at this time. Patient denies any fever chills coughs colds any overt illness. Review of Systems 2 General: Reports: 10 or more systems reviewed and unremarkable except in HPI and below PFSH ED 2 PFSH: Medical History CKD stage 3b, GFR 30-44 ml/min GERD (gastroesophageal reflux disease) Male erectile dysfunction, unspecified Tobacco abuse FH: cholecystectomy Coronary artery disease Hyperlipidemia, unspecified HTN (hypertension) Surgical History History of back surgery Stented coronary artery Family History Brother CAD (coronary artery disease) Hypertension Father Family history of premature coronary artery disease Hypertension Stroke Social History Smoking and tobacco/nicotine status: former use of tobacco/nicotine Quit status (tobacco/nicotine): has quit using Alcohol intake: former Substance/Drug Use: never Physical Exam 2 Const: COMMON NORMALS: no acute distress, average body habitus, patient oriented x3, no limitations, healthy appearing, alert and well nourished HENMT: COMMON NORMALS: normocephalic, atraumatic, hearing grossly normal bilaterally, external ears normal, Normal external nose present, moist oral mucous membranes and oropharynx normal HEAD & SCALP: normocephalic and atraumatic NOSE: Normal external nose present EXTERNAL EAR: Yes external ears normal Neck/C-Spine: COMMON NORMALS: no JVD Chest: COMMONS NORMALS: normal inspection of the chest and normal palpation of entire chest wall Resp: COMMON NORMALS: normal respiratory effort, No retractions and No use of accessory muscles; negative for clear to auscultation bilaterally (Decreased breath sounds bilaterally) AUSCULTATION: not clear to auscultation bilaterally (Decreased breath sounds bilaterally) Cardio: COMMON NORMALS: no JVD, regular rate, regular rhythm, S1 normal heart sound present, S2 normal heart sound present, No gallops present (Cardio), No clicks present (Cardio), No murmurs present (Cardio) and No rub (Cardio) R ATE: regular rate RHYTHM: regular rhythm HEART SOUNDS: S1 normal heart sound present and S2 normal heart sound present GI: OTHER: Abdominal distention tender to palpation consistent with ascites Neuro: COMMON NORMALS: patient oriented x3 SENSORIUM/ORIENTATION: Yes alert Course 2 Vital Signs: Vital signs: Vital Signs Temperature 97.5 F L 08/07/23 21:42 Pulse Rate 140 H 08/08/23 00:24 Respiratory Rate 17 08/08/23 00:24 Blood Pressure 117/64 08/08/23 00:24 Pulse Oximetry 98 08/08/23 00:24 Oxygen Delivery Me thod Nasal Cannula 08/08/23 00:24 Oxygen Flow Rate 2 08/08/23 00:24 MDM - Abdominal Pain Medical Decision Making Discussed case with Dr. Chung who said his he probably should be transferred to a place that has at least GI if not his GI for further workup and possible paracentesis. Discussed with this with the patient. And they would like to be transferred to [place]. [facility] transfer line was called discussed case with the procurement cost coordinator who called the GI doc and the hospitalist and they would like him to go to the ER due to his high heart rate. ER was called Dr. Nieves accepted the patient in transfer. Differential Diagnosis Likely abdominal pain; Unlikely acute appendicitis, calculus of kidney, constipation, diverticulitis, endometriosis, gastroenteritis, pancreatitis or small bowel obstruction Medical Records I reviewed the patient's medical records. Lab Data I reviewed the patient's lab results. 08/07/23 22:51 08/07/23 22:51 Labs/Radiology: Radiology Impressions Chest X-Ray 08/07/23 21:35 IMPRESSION: No acute cardiopulmonary disease. Laboratory Results WBC 3.09 10^3/uL (3.29-11.43) L 08/07/23 22:51 RBC 2.10 10^6/uL (3.85-5.65) L 08/07/23 22:51 Hgb 7.40 g/dL (11.27-16.99) L 08/07/23 22:51 Hct 23.0 % (37-53) L 08/07/23 22:51 MCV 109.5 fl (82-101) H 08/07/23 22:51 MCH 35.2 pg (27-33) H 08/07/23 22:51 MCHC 32.2 g/dL (30-55) 08/07/23 22:51 RDW 18.4 % (12.1-15.1) H 08/07/23 22:51 Plt Count 50 10^3/cmm (157-399) L 08/07/23 22:51 MPV 12.9 fL (7.4-10.4) H 08/07/23 22:51 Neut % (Auto) 49.3 % 08/07/23 22:51 Lymph % (Auto) 38.8 % 08/07/23 22:51 [place] % (Auto) 3.6 % 08/07/23 22:51 Eos % (Auto) 7.4 % 08/07/23 22:51 Baso % (Auto) 0.6 % 08/07/23 22:51 Neut # (Auto) 1.52 10^3/uL (1.8-7.7) L 08/07/23 22:51 Lymph # (Auto) 1.2 10^3/uL (0.8-4.8) 08/07/23 22:51 [place] # (Auto) 0.1 10^3/uL (0.2-0.9) L 08/07/23 22:51 Eos # (Auto) 0.2 10^3/uL (0.0-0.8) 08/07/23 22:51 Baso # (Auto) 0.0 10^3/uL (0.0-0.1) 08/07/23 22:51 Nucleated RBC % (auto) 0 % 08/07/23 22:51 Nucleated RBCs # 0.0 /100WBC 08/07/23 22:51 PT 31.10 SECONDS (12.1-14.9) H 08/07/23 22:51 INR 2.87 (0.8-1.2) H 08/07/23 22:51 Sodium 133 mmol/L (136-145) L 08/07/23 22:51 Potassium 4.5 mmol/L (3.5-5.1) 08/07/23 22:51 Chloride 96 mmol/L (98-107) L 08/07/23 22:51 Carbon Dioxide 14 mmol/L (22-29) L 08/07/23 22:51 Anion Gap 27.5 (5-19) H 08/07/23 22:51 BUN 64 mg/dL (8-23) H 08/07/23 22:51 Creatinine 3.2 mg/dL (0.7-1.2) H 08/07/23 22:51 GFR Calculation 19.9 mL/min (90-130) L 08/07/23 22:51 Glucose 152 mg/dL (65-115) H 08/07/23 22:51 Calculated Osmolality 297 mOsm/kg (285-295) H 08/07/23 22:51 Calcium 9.4 mg/dL (8.5-10.5) 08/07/23 22:51 Phosphorus 3.8 mg/dL (2.5-4.5) 08/07/23 22:51 Magnesium 2.3 mg/dL (1.7-2.3) 08/07/23 22:51 Total Bilirubin 6.8 mg/dL (0.15-1.2) H 08/07/23 22:51 AST 95 U/L (0-40) H 08/07/23 22:51 ALT 48 U/L (0-41) H 08/07/23 22:51 Alkaline Phosphatase 159 U/L (40-130) H 08/07/23 22:51 Troponin T Baseline 34 ng/L (0-15) H 08/07/23 22:51 NT-Pro-B Natriuret Pep 1278 pg/mL (0-125) H 08/07/23 22:51 Total Protein 6.1 g/dL (6.6-8.7) L 08/07/23 22:51 Albumin 3.0 g/dL (3.5-5.2) L 08/07/23 22:51 Globulin 3.1 g/dL (1.3-4.6) 08/07/23 22:51 All radiology interpretation(s) finalized by discharge Discharge Plan Discharge Patient Disposition: Xfer Short-Term Hosp Clinical Impression: Cirrhosis of liver, Anasarca Condition: Stable Prescriptions: No Action simvastatin 40 mg tablet 40 mg PO QPM Qty: 30 3RF pantoprazole 40 mg tablet,delayed release (DR/EC) 40 mg PO QAM PRN (Reason: acid reflux) Qty: 30 3RF lactulose 20 gram/30 mL solution 30 g PO QAM Qty: 10 2RF linezolid 600 mg tablet 600 mg PO BID midodrine 5 mg tablet 5 mg PO TID Rx Instructions: do not give last dose of day after 6PM or within 4 hrs of bedtime Xifaxan 550 mg tablet 550 mg PO BID Referrals: Carlos Phillips MD [Primary Care Provider] - Coding Level of Care Code ED Art Class Model for [place] [place]
[2023-08-07 23:18] LABS: Troponin(5th) Baseline 34 ng/L (0-15)
[2023-08-07 23:26] LABS: Alanine Aminotransferase 48 U/L (0-41); Alkaline Phosphatase 159 U/L (40-130); Anion Gap 27.5 (5-19); Aspartate Amino Transferase 95 U/L (0-40); Blood Urea Nitrogen 64 mg/dL (8-23); Calcium 9.4 mg/dL (8.5-10.5); Carbon Dioxide 14 mmol/L (22-29); Chloride 96 mmol/L (98-107); Creatinine Clr Calc Pharmacy 33.0618; Globulin 3.1 g/dL (1.3-4.6); Glomerular Filtration Rate 19.9 mL/min (90-130); Glucose 152 mg/dL (65-115); Magnesium 2.3 mg/dL (1.7-2.3); NT Pro B Type Natriuretic Pept 1278 pg/mL (0-125); Osmolality Calculated 297 mOsm/kg (285-295); Phosphorus 3.8 mg/dL (2.5-4.5); Potassium 4.5 mmol/L (3.5-5.1); Sodium 133 mmol/L (136-145); Total Bilirubin 6.8 mg/dL (0.15-1.2); Total Protein 6.1 g/dL (6.6-8.7)
--- NOTE | 2023-08-07 23:35 | ECG_ITS ---
[facility] Test Date: 2023-08-07 Pat Name: Jordi Pérez Department: Room: Gender: Male [employer] Operator: : 1960 Requested By: Guerrero Herr Order Number: [id number] Jairo MD: Garrett Prater M.D. Measurements Intervals [place] Rate: 142 P: -46 WV: 105 QRS: 30 QRSD: 99 T: 119 QT: 341 QTc: 524 Interpretive Statements SINUS TACHYCARDIA WITH SHORT [place] INTERVAL, POSSIBLE ATRIAL FLUTTER LOW QRS VOLTAGE IN EXTREMITY LEADS [QRS DEFLECTION < 0.5 mV IN LIMB LEADS] POSSIBLE ANTERIOR MYOCARDIAL INFARCTION , PROBABLY OLD [30 ms Q WAVE IN V3/V4, OR R < 0.2 mV IN V4] ABNORMAL RHYTHM ECG Compared to ECG 07/02/2023 08:53:48 Low QRS voltage now present Sinus rhythm no longer present Myocardial infarct finding still present Electronically Signed On 08-08-2023 19:58:58 CDT by Garrett Prater M.D. [id number]
[2023-08-07 23:40] LABS: INR 2.87 (0.8-1.2)
[2023-08-07 23:46] VITALS: BP 119/72; PULSE 141; RESP 19; O2SAT 86
[2023-08-08] VITALS (7 sets, daily range): BP systolic 90–117; BP diastolic 50–64; PULSE 140–144; RESP 17–31; O2SAT 88–98
[2023-08-08] MEDS: ondansetron 2 mg/ML SDV 2 mL 8 MG IVP (01:01)
[2023-08-08] MEDS: pantoprazole 40 mg SDV IVP (01:01)
[2023-08-08 01:12] LABS: Troponin 5 2HR 45.59 ng/L (0-15)
[2023-08-08 01:15] LABS: Ammonia 57 umol/L (16-60)
[2023-08-08 01:16] LABS: Troponin 5 2HR Delta 11.59 ABS# (0-10)
[2023-08-08] MEDS: sodium chloride 0.9% 500 ML 999 ML IV (01:45)
[2023-08-08] MEDS: ipratropium-albuterol 3 mL Neb INHALATION (01:46)
[2023-08-08] MEDS: morphine 4 mg/mL SDV 1 mL IVP (01:54)
[2023-08-08 02:03] LABS: Basophils % 0.6 %; Hematocrit 22.1 % (37-53); Lymphocytes # 0.4 10^3/uL (0.8-4.8); Lymphocytes % 24.6 %; Mean Corpuscular HGB Conc 31.2 g/dL (30-55); Mean Corpuscular Hemoglobin 35.2 pg (27-33); Mean Corpuscular Volume 112.8 fl (82-101); Mean Platelet Volume 13.4 fL (7.4-10.4); Monocytes # 0.2 10^3/uL (0.2-0.9); Monocytes % 12.6 %; Neutrophils # 1.08 10^3/uL (1.8-7.7); Neutrophils % 61.6 %; Nucleated Red Blood Cells % 0 %; Platelet Count 39 10^3/cmm (157-399); Red Blood Count 1.96 10^6/uL (3.85-5.65); Red Cell Distribution Width 18.2 % (12.1-15.1); White Blood Count 1.75 10^3/uL (3.29-11.43)
--- NOTE | 2023-08-08 02:27 | PC.NURSE ---
Patients called from doorway at 0056 that she needed help. Pt reclined back in the bed vomiting. PTs bed sat back up and suctioned. Dr Herr in room and spoke with / patient re: medications for n/v. Orders placed by provider and pt given ivp protonix and zofran. Pt asked to lay him back down and I provided her education on why he has to remain upright. Patient was previously instructed to keep the head of the bed upright. @ 0126- Patients sats dropped to upper 70s- low 80s. Pt stating that he can't breath . crying in the room and states that he has never sounded this bad. Pt now has audible course crackles. Oxygen increased to 6l nc. Provider notified and orders placed for duoneb. Patient changed to 8L simple mask while waiting on respiratory. Respiratory placed pt on 10L via mask after tx. Pt reports that the tx did nothing for him and that he feels no change at all. EMS arrived for transfer to [facility] ER/ GI. Pts sats 88-89% on 10L/ simple mask. Ems accepted transfer.
== END 2023-08-08 02:49 | disposition short-term general hospital (02) ==
PROVIDERS: Emergency Provider Emergency Medicine; PCP Family Medicine Adult Medicine
DX: K74.60 Unspecified cirrhosis of liver (principal); R60.1 Generalized edema; I12.9 Hypertensive chronic kidney disease with stage 1 through stage 4 chronic kidney disease, or unspecified chronic kidney disease; N18.32 Chronic kidney disease, stage 3b; I25.10 Atherosclerotic heart disease of native coronary artery without angina pectoris; E78.5 Hyperlipidemia, unspecified; Z87.891 Personal history of nicotine dependence
CPT/HCPCS: 36415; 71045; 80053; 82140; 83735; 83880; 84100; 84484; 85025; 85610; 93005; 94640; 96361; 96374; 96375; 99285; 99291; C9113; J2270; J2405; J7040